=== PATIENT | female | born 1950 | race Caucasian/White ===

== ENCOUNTER → 2016-07-09 | Outpatient (CLI) | payer MEDICARE, BC | LOC: MW.CHFP 08:00 | PROVIDERS: ATTEND Student in an Organized Health Care Education/Training Program | DX: Z51.81 Encounter for therapeutic drug level monitoring (principal); Z79.01 Long term (current) use of anticoagulants; I48.91 Unspecified atrial fibrillation | CPT/HCPCS: 85610; 99211 ==

== ENCOUNTER → 2016-07-14 | Outpatient (CLI) | payer MEDICARE, BC | LOC: MW.CHORTHO 08:00 | PROVIDERS: ATTEND Physician Assistant | DX: M17.0 Bilateral primary osteoarthritis of knee (principal) | CPT/HCPCS: 20610-50; G0463; J1040; J7326 ==

== ENCOUNTER → 2016-07-20 | Outpatient (CLI) | payer MEDICARE, BC | LOC: MW.CHGS 08:00 | PROVIDERS: ATTEND Surgery | DX: C54.1 Malignant neoplasm of endometrium (principal) | CPT/HCPCS: G0463 ==

== ENCOUNTER 2016-07-28 06:38 | Day surgery (SDC) | payer MEDICARE, BC ==
--- NOTE | 2016-06-29 11:33 | PCM.PREANE ---
Preanesthetic Assessment - ANESTHESIA/TRANSFUSION/FAMILY HX Anesthesia/Transfusion History: No Prior Transfusion(s), Prior Anesthesia Family History of Anesthesia Reaction: No Other Intubation History Comment: no known problems - PHYSICAL ASSESSMENT Height: 1.65 m Weight: 94.347 kg ASA Class: 2 - ALLERGIES Allergies/Adverse Reactions: Allergies Allergy/AdvReac Type Severity Reaction Status Date / Time lorazepam [From Ativan] Allergy Hallucinati Verified 12/16/15 14:45 ons - BLOOD Blood Available: No - ANESTHESIA PLAN Preop Beta Yelena: No PreAnesthesia Questionnaire HEENT History: Reports: Impaired vision Other HEENT History: wears glasses Cardiovascular History: Reports: Afib, High cholesterol, Hypertension, Pulmonary hypertension Other Cardiovascular History: hx intermittent afib Respiratory History: Reports: None Gastrointestinal History: Reports: None Genitourinary History: Reports: None BACK WINDER History: Reports: None Musculoskeletal History: Reports: Arthritis, Gout, Other (see below) Other Musculoskeletal History: lymphedema of RLE secondary to node dissection for endometrial cancer Neurological History: Reports: None Psychiatric History: Reports: Anxiety, Depression Endocrine/Metabolic History: Reports: Diabetes, type II, Obesity/BMI 30+ Hematologic History: Reports: Anticoagulation therapy Other Hematologic History: on coumadin for afib Immunologic History: Reports: None Oncologic (Cancer) History: Reports: Uterine Dermatologic History: Reports: Psoriasis Other Dermatologic History: on face - Infectious Disease History Infectious Disease History: Reports: Chicken pox - Past Surgical History Head Surgeries/Procedures: Reports: None HEENT Surgical History: Reports: None Cardiovascular Surgical History: Reports: None Respiratory Surgical History: Reports: None GI Surgical History: Reports: Colonoscopy Female Surgical History: Reports: D&C, Hysterectomy Endocrine Surgical History: Reports: None Neurological Surgical History: Reports: Spinal fusion Musculoskeletal Surgical History: Reports: Other (see below) Other Musculoskeletal Surgeries/Procedures:: back fusion Oncologic Surgical History: Reports: Other (see below) Other Oncologic Surgeries/Procedures: hysterectomy Dermatological Surgical History: Reports: None - SUBSTANCE USE Smoking Status *Q: Former Smoker Second Hand Smoke Exposure: No Recreational Drug Use History: No - HOME MEDS Home Medications: Home Meds DULoxetine [Cymbalta] 60 mg PO DAILY 05/16/14 [History] Digoxin 125 mcg PO TUTHSA 05/16/14 [History] Digoxin 250 mcg PO SUMOWEFR 01/21/15 [History] Enalapril [Vasotec] 5 mg PO DAILY 05/16/14 [History] Metoprolol Succinate [Toprol Xl] 100 mg PO BEDTIME 05/16/14 [History] metFORMIN [Glucophage] 1,000 mg PO BIDM 05/16/14 [History] Insulin Aspart [Novolog Flexpen] 17 unit SQ ACLUNCH 09/30/15 [History] Insulin Glarg,Human.Rec.Analog [Lantus Solostar] 32 unit SUBCUT BEDTIME [History] Meloxicam 15 mg PO DAILY PRN 09/30/15 [History] traMADol [Ultram] 1 - 2 tab PO BEDTIME PRN 10/08/15 [History] traZODone HCl [Trazodone HCl] 2 tab PO BEDTIME PRN 10/08/15 [History] Insulin Aspart [Novolog Flexpen] 23 units SQ ACDINNER 12/16/15 [History] Gabapentin [Neurontin] 2 tab PO TID 06/24/16 [History] Warfarin [Coumadin] 5 mg PO ASDIRECTED 06/24/16 [History]
[~2016-07-28 06:38] MED LIST: Clindamycin Phosphate in D5W 600 MG in Premix Bag 50 BAG IV ONE
--- NOTE | 2016-07-28 07:11 | PCM.PREANE ---
Preanesthetic Assessment - Anesthesia/Transfusion/Family Hx Anesthesia History: Prior Anesthesia Without Reaction Family History of Anesthesia Reaction: No Transfusion History: No Prior Transfusion(s) - Review of Systems General: No Symptoms Pulmonary: No Symptoms Cardiovascular: No Symptoms Gastrointestinal: No symptoms Neurological: No Symptoms Other: Reports: None - Physical Assessment NPO Status Date: 07/27/16 O2 Sat by Pulse Oximetry: 96 Respiratory Rate: 16 Vital Signs: Last Vital Signs Temp 36.2 C 07/28/16 06:57 Pulse 84 07/28/16 06:57 Resp 16 07/28/16 06:57 BP 116/56 L 07/28/16 06:57 Pulse Ox 96 07/28/16 06:57 Height: 1.65 m Weight: 94.347 kg ASA Class: 3 Mental Status: Alert & Oriented x3 Airway Class: Mallampati = 2 Dentition: Reports: Normal Dentition ROM/Head Extension: Full Lungs: Clear to auscultation, Normal respiratory effort Cardiovascular: Irregular Rhythm (rate controlled afib) - Lab Values: Laboratory Last Values POC Glucose 78 mg/dL (60-110) 07/28/16 06:50 - Allergies Allergies/Adverse Reactions: Allergies Allergy/AdvReac Type Severity Reaction Status Date / Time lorazepam [From Ativan] Allergy Hallucinati Verified 12/16/15 14:45 ons - Anesthesia Plan Beta Yelena: Metoprolol Med Last Dose Date: 07/27/16 Med Last Dose Time: 20:00 - Acknowledgements Anesthesia Type Planned: MAC Pt an Appropriate Candidate for the Planned Anesthesia: Yes Alternatives and Risks of Anesthesia Discussed w Pt/Guardian: Yes Pt/Guardian Understands and Agrees with Anesthesia Plan: Yes Additional Comments: blood sugar on arrival was 78, pt reports she usually has sx of hypoglycemia with sugars of 70. 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 Musculoskeletal History: Reports: Arthritis, Gout Neurological History: Reports: None Psychiatric History: Reports: Anxiety, Depression Endocrine/Metabolic History: Reports: Diabetes, type II, Obesity/BMI 30+ Hematologic History: Reports: None Immunologic History: Reports: None Oncologic (Cancer) History: Reports: Uterine Dermatologic History: Reports: Psoriasis Other Dermatologic History: on face - Infectious Disease History Infectious Disease History: Reports: Chicken pox - Past Surgical History Head Surgeries/Procedures: Reports: None HEENT Surgical History: Reports: None Cardiovascular Surgical History: Reports: None Respiratory Surgical History: Reports: None GI Surgical History: Reports: Colonoscopy Female Surgical History: Reports: D&C, Hysterectomy Endocrine Surgical History: Reports: None Neurological Surgical History: Reports: Spinal fusion Musculoskeletal Surgical History: Reports: Other (see below) Other Musculoskeletal Surgeries/Procedures:: back fusion Oncologic Surgical History: Reports: Other (see below) Other Oncologic Surgeries/Procedures: hysterectomy Dermatological Surgical History: Reports: None - SUBSTANCE USE Smoking Status *Q: Former Smoker Second Hand Smoke Exposure: No Recreational Drug Use History: No - HOME MEDS Home Medications: Home Meds DULoxetine [Cymbalta] 60 mg PO DAILY 05/16/14 [History] Digoxin 125 mcg PO TUTHSA 05/16/14 [History] Digoxin 250 mcg PO SUMOWEFR 05/16/14 [History] Enalapril [Vasotec] 5 mg PO DAILY 05/16/14 [History] Metoprolol Succinate [Toprol Xl] 100 mg PO BEDTIME 05/16/14 [History] metFORMIN [Glucophage] 1,000 mg PO BIDM 05/16/14 [History] Insulin Aspart [Novolog Flexpen] 17 unit SQ ACLUNCH 09/30/15 [History] Insulin Glarg,Human.Rec.Analog [Lantus Solostar] 32 unit SUBCUT BEDTIME [History] Meloxicam 15 mg PO DAILY PRN 09/30/15 [History] traMADol [Ultram] 1 - 2 tab PO BEDTIME PRN 10/08/15 [History] traZODone HCl [Trazodone HCl] 2 tab PO BEDTIME PRN 10/08/15 [History] Insulin Aspart [Novolog Flexpen] 23 units SQ ACDINNER 12/16/15 [History] Gabapentin [Neurontin] 2 tab PO TID 06/24/16 [History] Warfarin [Coumadin] 5 mg PO ASDIRECTED 06/24/16 [History] - CURRENT (IN HOUSE) MEDS Current Meds: Current Medications Discontinued Medications Clindamycin Phosphate 600 mg/ (Premix) 50 mls @ 100 mls/hr IV ONETIME ONE Stop: 07/28/16 05:29 Preanesthetic Assessment - ANESTHESIA/TRANSFUSION/FAMILY HX Anesthesia/Transfusion History: No Prior Transfusion(s), Prior Anesthesia Family History of Anesthesia Reaction: No Other Intubation History Comment: no known problems - PHYSICAL ASSESSMENT O2 Sat by Pulse Oximetry: 96 RR: 16 Vital Signs: Last Vital Signs Temp 36.2 C 07/28/16 06:57 Pulse 84 07/28/16 06:57 Resp 16 07/28/16 06:57 BP 116/56 L 07/28/16 06:57 Pulse Ox 96 07/28/16 06:57 Height: 1.65 m Weight: 94.347 kg - LAB Values: Laboratory Last Values POC Glucose 78 mg/dL (60-110) 07/28/16 06:50 - ALLERGIES Allergies/Adverse Reactions: Allergies Allergy/AdvReac Type Severity Reaction Status Date / Time lorazepam [From Ativan] Allergy Hallucinati Verified 12/16/15 14:45 ons
[2016-07-28] MEDS ORDERED: Dextrose 5% in Water 1,000 ML IV SCH (07:15)
[2016-07-28] MEDS ORDERED: Bupivacaine 0.25%/EPINEPHrine 1:200,000 10 ML SDV ONE (07:21)
[2016-07-28] MEDS ORDERED: fentaNYL 100 MCG/2 ML SDV ONE (07:25)
[2016-07-28] MEDS ORDERED: Propofol 200 MG/20 ML SDV ONE (07:25)
[2016-07-28] MEDS ORDERED: Acetaminophen/oxyCODONE 325-5 MG Tab PO PRN (07:50)
--- NOTE | 2016-07-28 08:25 | PCM.OPNOTE ---
- General Post-Op/Procedure Note Date of Surgery/Procedure: 07/28/16 Operative Procedure(s): portacath removal from R Findings: cath tip is intact Pre Op Diagnosis: uterine ca Post-Op Diagnosis: same Anesthesia Technique: Moderate sedation Primary Surgeon: Jose Rodgers Complications: None Condition: Good
--- NOTE | 2016-07-28 08:37 | PCM.POSTAN ---
POST ANESTHESIA ASSESSMENT - MENTAL STATUS Mental Status: alert, oriented - RESPIRATORY Respiratory Status: respiratory rate WNL, airway patent - CARDIOVASCULAR CV Status: pulse rate WNL, blood pressure stable - GASTROINTESTINAL GI Status: no symptoms - POST OP HYDRATION Hydration Status: adequate & stable
--- NOTE | 2016-07-28 08:37 | PCM48HPAN ---
Post Anesthesia Note - EVALUATION WITHIN 48HRS OF ANESTHETIC Vital Signs in Normal Range: Yes Patient Participated in Evaluation: Yes Respiratory Function Stable: Yes Airway Patent: Yes Cardiovascular Function Stable: Yes Hydration Status Stable: Yes Pain Control Satisfactory: Yes Nausea and Vomiting Control Satisfactory: Yes Mental Status Recovered: Yes
[2016-07-28 10:37] VITALS: BP 114/54
--- NOTE | 2016-07-28 13:58 | OR ---
SURGEON: Jose Rodgers MD DATE OF PROCEDURE: 07/28/2016 PREOPERATIVE DIAGNOSIS: Uterine cancer. POSTOPERATIVE DIAGNOSIS: Uterine cancer. PROCEDURE PERFORMED: Port-A-Cath removal from the right side. COMPLICATIONS: None. FINDINGS: The Port-A-Cath was removed en bloc and the tip of the catheter is intact. DESCRIPTION OF PROCEDURE: The patient was taken to the operating room and placed in supine position. Upon induction of a mild general sedation, the patient's port site area on the right chest was prepped and draped in a sterile fashion and local anesthetic was infiltrated. From previous surgical line which is on top of the Port-A-Cath and which dissected down to expose the Port-A-Cath and anchoring stitch was cut and Port-A-Cath was then carefully removed en bloc, and pressure was applied for at least 3+ minutes. On examination of Port-A-Cath, the Port-A-Cath was intact and the tip of the catheter was intact and after 3 minutes of applying pressure the area was bone dry and copiously irrigated on irrigation and closed with 3-0 Vicryl and 4-0 Monocryl, Steri-Strip, and Tegaderm. The patient was then awakened, transferred to recovery in hemodynamically stable condition. Prior to closing, instruments, sponge counts were correct. The patient tolerated the procedure well. There were no intraoperative complications. Dr. Rodgers was present throughout the whole procedure. LM / VANESSA /[id number]
== END 2016-07-28 09:25 | disposition home or self-care (01) ==
LOC: MW.SDS 06:38
PROVIDERS: ATTEND Surgery
DX: C55 Malignant neoplasm of uterus, part unspecified (principal); F41.9 Anxiety disorder, unspecified; E11.9 Type 2 diabetes mellitus without complications; Z79.4 Long term (current) use of insulin; E78.5 Hyperlipidemia, unspecified; I10 Essential (primary) hypertension; Z79.01 Long term (current) use of anticoagulants; F32.9 Major depressive disorder, single episode, unspecified; E66.9 Obesity, unspecified; Z88.8 Allergy status to other drugs, medicaments and biological substances; Z79.899 Other long term (current) drug therapy; Z79.84 Long term (current) use of oral hypoglycemic drugs; Z98.890 Other specified postprocedural states; Z90.721 Acquired absence of ovaries, unilateral; Z87.891 Personal history of nicotine dependence
CPT/HCPCS: 36415; 36590; 82962; 85610; J3010; 00532; 88300; J2704

== ENCOUNTER → 2016-08-06 | Outpatient (CLI) | payer MEDICARE, BC | LOC: MW.CHFP 08:00 | PROVIDERS: ATTEND Student in an Organized Health Care Education/Training Program | DX: Z51.81 Encounter for therapeutic drug level monitoring (principal); Z79.01 Long term (current) use of anticoagulants; I48.91 Unspecified atrial fibrillation | CPT/HCPCS: 85610; 99211 ==

== ENCOUNTER → 2016-08-25 | Outpatient (CLI) | payer MEDICARE, BC | LOC: MW.CHOBGYN 08:00 | PROVIDERS: ATTEND Obstetrics & Gynecology | DX: C54.1 Malignant neoplasm of endometrium (principal) | CPT/HCPCS: G0463 ==

== ENCOUNTER → 2016-08-27 | Outpatient (CLI) | payer MEDICARE, BC | LOC: MW.CHFP 08:00 | PROVIDERS: ATTEND Student in an Organized Health Care Education/Training Program | DX: Z51.81 Encounter for therapeutic drug level monitoring (principal); Z79.01 Long term (current) use of anticoagulants; I48.91 Unspecified atrial fibrillation | CPT/HCPCS: 85610; 99211 ==

== ENCOUNTER → 2016-09-11 | Outpatient (CLI) | payer MEDICARE, BC ==
[2016-09-11 14:38] LABS: CHLORIDE,CL 100 mmol/L (98-110); SODIUM,NA 137 mmol/L (136-146)
== END ==
LOC: MW.CHFP 13:45
PROVIDERS: ATTEND Emergency Medicine
DX: E11.9 Type 2 diabetes mellitus without complications (principal); I10 Essential (primary) hypertension; Z79.4 Long term (current) use of insulin; G62.0 Drug-induced polyneuropathy; T45.1X5A Adverse effect of antineoplastic and immunosuppressive drugs, initial encounter; G25.81 Restless legs syndrome
CPT/HCPCS: 36415; 80048; 80061; 83036; G0463

== ENCOUNTER 2020-01-18 17:03 | Inpatient (IN) | payer MEDICARE, BC, OTHER ==
[2020-01-18] MEDS ORDERED: Albuterol/Ipratropium 3.0-0.5 MG/3 ML Neb Soln NEB PRN (17:47)
[2020-01-18] MEDS ORDERED: Heparin Sodium 5,000 Units/ML Vial SUBCUT SCH (18:00)
--- NOTE | 2020-01-18 18:26 | PCM.HP.2 ---
H&P History of Present Illness - General Date of Service: 01/18/20 Admit Problem/Dx: Admission Diagnosis/Problem Admission Diagnosis/Problem Ambulatory dysfunction - History of Present Illness Initial Comments - Free Text/Narative: Patient is a 69 y/o F with PMH of Afib, High cholesterol, Hypertension, Pulmonary hypertension, DM, OA, obesity, gout, was sent from her PCP clinic. There was a concern of her weigh gain , swollen legs with copious serous drainage,, possible volume overload and her inability to perform ADLS safely at home. Patient is being admitted for further management. Bilateral Lower Leg Pain Score (Numeric/FACES): 4 - Related Data Allergies/Adverse Reactions: Allergies Allergy/AdvReac Type Severity Reaction Status Date / Time lorazepam [From Ativan] Allergy Hallucinati Verified 12/16/15 14:45 ons Home Medications: Home Meds DULoxetine [Cymbalta] 60 mg PO DAILY 05/16/14 [History] Digoxin 125 mcg PO TUTHSA 05/16/14 [History] Digoxin 250 mcg PO SUMOWEFR 05/16/14 [History] Enalapril [Vasotec] 5 mg PO DAILY 05/16/14 [History] Metoprolol Succinate [Toprol Xl] 100 mg PO BEDTIME 05/16/14 [History] metFORMIN [Glucophage] 1,000 mg PO BIDM 05/16/14 [History] Insulin Aspart [Novolog Flexpen] 17 unit SQ ACLUNCH 09/30/15 [History] Insulin Glarg,Human.Rec.Analog [Lantus Solostar] 32 unit SUBCUT BEDTIME 09/30/15 [History] Meloxicam 15 mg PO DAILY PRN 09/30/15 [History] traMADol [Ultram] 1 - 2 tab PO BEDTIME PRN 10/08/15 [History] traZODone HCl [Trazodone HCl] 2 tab PO BEDTIME PRN 10/08/15 [History] Insulin Aspart [Novolog Flexpen] 23 units SQ ACDINNER 12/16/15 [History] Gabapentin [Neurontin] 2 tab PO TID 06/24/16 [History] Past Medical History HEENT History: Reports: Impaired Vision Other HEENT History: wearas glasses Cardiovascular History: Reports: Afib, High Cholesterol, Hypertension, Pulmonary Hypertension Other Cardiovascular History: hx intermittent afib Respiratory History: Reports: None Gastrointestinal History: Reports: None Genitourinary History: Reports: None, Other (See Below) 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 Musculoskeletal History: Reports: Arthritis, Gout Neurological History: Reports: None Psychiatric History: Reports: Anxiety, Depression, Other (See Below) Endocrine/Metabolic History: Reports: Diabetes, Type II, Obesity/BMI 30+ Hematologic History: Reports: None Immunologic History: Reports: None Oncologic (Cancer) History: Reports: Uterine Dermatologic History: Reports: Psoriasis Other Dermatologic History: on face - Infectious Disease History Infectious Disease History: Reports: Chicken Pox - Past Surgical History Neurological Surgical History: Reports: Spinal Fusion Musculoskeletal Surgical History: Reports: Other (See Below) Oncologic Surgical History: Reports: Other (See Below) H&P Review of Systems - Review of Systems: Review Of Systems: See Below General: Denies: Fever, Chills, Malaise Pulmonary: Denies: Shortness of Breath, Wheezing, Pleuritic Chest Pain Cardiovascular: Denies: Chest Pain, Palpitations Gastrointestinal: Denies: Abdominal Pain, Anorexia, Black Stool Genitourinary: Reports: Frequency. Denies: Dysuria, Burning, Pain, Incontinence Musculoskeletal: Reports: Leg Pain, Joint Pain, Muscle Stiffness. Denies: Neck Pain, Shoulder Pain Skin: Reports: Rash, Erythema. Denies: Cyanosis, Jaundice, Mottled Psychiatric: Reports: Anxiety. Denies: Confusion, Depression, Mood Lability, Suicidal Ideation, Homicidal Ideation Neurological: Denies: Confusion, Dizziness, Headache Exam - Exam Exam: See Below - Vital Signs Vital Signs: Last Vital Signs Temp Pulse Resp 22 H 01/18/20 17:55 BP 120/44 L 01/18/20 17:55 Pulse Ox 99 01/18/20 17:55 Weight: 123.332 kg - Exam Quality Assessment: Supplemental Oxygen General: Alert, Oriented Neck: Supple, Trachea Midline Lungs: Clear to Auscultation, Normal Respiratory Effort Cardiovascular: Regular Rate, Regular Rhythm GI/Abdominal Exam: Normal Bowel Sounds, Soft, Non-Tender Extremities: Pedal Edema, Leg Pain, Limited Range of Motion, Redness Skin: Warm, Moist, Rash - Patient Data Result Diagrams: 01/18/20 18:16 01/18/20 18:16 Sepsis Event Note - Focused Exam Vital Signs: Vital Signs Resp BP Pulse Ox 01/18/20 17:55 22 H 120/44 L 99 - Problem List (1) Afib SNOMED Code(s): 18382248 ICD Code: I48.91 - UNSPECIFIED ATRIAL FIBRILLATION Status: Acute Current Visit: Yes (2) Diabetes SNOMED Code(s): 54143070 ICD Code: E11.9 - TYPE 2 DIABETES MELLITUS WITHOUT COMPLICATIONS Status: Acute Current Visit: Yes (3) Osteoarthritis SNOMED Code(s): 468418129 ICD Code: M19.90 - UNSPECIFIED OSTEOARTHRITIS, UNSPECIFIED SITE Status: Acute Current Visit: Yes (4) HTN (hypertension) SNOMED Code(s): 08846454 ICD Code: I10 - ESSENTIAL (PRIMARY) HYPERTENSION Status: Acute Current Visit: Yes (5) Ambulatory dysfunction SNOMED Code(s): 747113578 ICD Code: R26.2 - DIFFICULTY IN WALKING, NOT ELSEWHERE CLASSIFIED Status: Acute Current Visit: Yes Problem List Initiated/Reviewed/Updated: Yes Orders Last 24hrs: Active Orders 24 hr Category Date Time Status Patient Status [ADT] Routine ADT 01/18/20 17:47 Active Ambulate [RC] ASDIRECTED Care 01/18/20 17:47 Active Insert [place] Catheter [Insert Urinary Catheter] [OM.PC] Care 01/18/20 18:00 Ordered Q24H Oxygen Therapy [RC] PRN Care 01/18/20 17:47 Active Pulse Oximetry [RC] PRN Care 01/18/20 17:50 Active RT Aerosol Therapy [RC] ASDIRECTED Care 01/18/20 17:51 Active Urinary Catheter Assessment [RC] ASDIRECTED Care 01/18/20 17:54 Active VTE/DVT Education [RC] PER UNIT ROUTINE Care 01/18/20 17:47 Active Vital Signs [RC] Q4H Care 01/18/20 17:47 Active Consult to Physical Therapy [PT Evaluation and Cons 01/18/20 17:54 Active Treatment] [CONS] Routine Consult to Wound Care Services [CONS] Routine Cons 01/18/20 17:52 Active CBC WITH AUTO DIFF [HEME] Stat Lab 01/18/20 18:16 Received COMPREHENSIVE METABOLIC PN,CMP [CHEM] Stat Lab 01/18/20 18:16 Received MAGNESIUM [CHEM] Stat Lab 01/18/20 18:16 Received PHOSPHORUS [CHEM] Stat Lab 01/18/20 18:16 Received UA W/ALEJANDRA RFLX IF INDICATED [URIN] Routine Lab 01/18/20 17:51 Ordered Acetaminophen [TylenoL] Med 01/18/20 17:47 Active 650 mg PO Q4H PRN Albuterol/Ipratropium [DuoNeb 3.0-0.5 MG/3 ML] Med 01/18/20 17:47 Active 3 ml NEB Q4HRRT PRN Heparin Sodium Med 01/18/20 18:15 Pending 5,000 units SUBCUT Q8H Medication Orders Acetaminophen (Tylenol) 650 mg PO Q4H PRN PRN Reason: Pain (Mild 1-3)/fever Albuterol/Ipratropium (Duoneb 3.0-0.5 Mg/3 Ml) 3 ml NEB Q4HRRT PRN PRN Reason: Shortness Of Breath/wheezing Heparin Sodium (Porcine) (Heparin Sodium) 5,000 units SUBCUT Q8H FORREST Assessment/Plan Comment:: 69 y/o F admitted for b/l leg swelling, ambulatory dysfunction, start IV lasix 40 mh BID inset Peraza for now for close monitoring of ins and outs 2D echo resume bedtime Levemir SSI per protocol Accu checks Wound care PT eval Monitor and replete electrolytes check UA Resume home meds
[2020-01-18 18:48] LABS: BLOOD UREA NITROGEN,BUN 13 mg/dL (7.0-18.0); CARBON DIOXIDE,CO2 29.2 mmol/L (21.0-32.0); CHLORIDE,CL 103 mmol/L (98-107); GLUCOSE RANDOM 136 mg/dL (74-106); POTASSIUM,K 5.7 mmol/L (3.5-5.1); SODIUM,NA 138 mmol/L (136-145)
[2020-01-18] MEDS ORDERED: Magnesium Sulfate/Water 2 GM/50 ML BAG IV ONE (19:30)
[2020-01-18] MEDS ORDERED: Magnesium Sulfate/Water 2 GM/50 ML Premix Bag IV ONE (19:30)
[2020-01-18] MEDS ORDERED: Morphine 2 MG/ML SYRINGE IVPUSH PRN (19:53)
[2020-01-18] MEDS: Heparin Sodium 5,000 Units/ML Vial SUBCUT SCH (20:47)
[2020-01-18] MEDS: Furosemide 40 MG/4 ML VIAL IVPUSH SCH (21:36)
[2020-01-18] MEDS: Metoprolol Succinate 100 MG Tab.ER PO SCH (21:36)
[2020-01-18] MEDS: Insulin Glargine,Human Rec. Analog 100 Units/ML 3 ML Pen SUBCUT SCH (21:37)
[2020-01-18] MEDS ORDERED: cefTRIAXone 1 GM in Sodium Chloride 0.9% 50 ML IV ONE (23:00)
[2020-01-19] MEDS: Heparin Sodium 5,000 Units/ML Vial SUBCUT SCH ×2 (04:55→19:06)
[2020-01-19 05:58] LABS: BLOOD UREA NITROGEN,BUN 13 mg/dL (7.0-18.0); CARBON DIOXIDE,CO2 33.3 mmol/L (21.0-32.0); CHLORIDE,CL 104 mmol/L (98-107); GLUCOSE RANDOM 53 mg/dL (74-106); POTASSIUM,K 4.9 mmol/L (3.5-5.1); SODIUM,NA 141 mmol/L (136-145)
[2020-01-19] MEDS ORDERED: Gabapentin 100 MG Cap PO SCH (06:00)
[2020-01-19] MEDS ORDERED: Meloxicam 7.5 MG Tab PO PRN (08:18)
[2020-01-19] MEDS: Insulin Aspart 100 Units/ML 3 ML Pen SUBCUT SCH ×3 (08:37→17:59)
[2020-01-19] MEDS: Furosemide 40 MG/4 ML VIAL IVPUSH SCH ×2 (08:39→21:45)
[2020-01-19] MEDS: Digoxin 250 MCG Tab PO SCH ×2 (08:46→08:54)
[2020-01-19] MEDS: DULoxetine 30 MG Cap PO SCH (08:46)
[2020-01-19] MEDS: Enalapril 5 MG Tab PO SCH (08:55)
[2020-01-19] MEDS ORDERED: Magnesium Sulfate/Water 2 GM/50 ML BAG IV ONE (09:22)
--- NOTE | 2020-01-19 09:26 | PCM.PN ---
- General Info Date of Service: 01/19/20 - Review of Systems Systems Review Comment:: leg edema improving - Patient Data Vitals - Most Recent: Last Vital Signs Temp 36.5 C 01/19/20 08:00 Pulse 89 01/19/20 08:46 Resp 16 01/19/20 08:00 BP 129/56 L 01/19/20 08:55 Pulse Ox 93 L 01/19/20 08:00 Weight - Most Recent: 123.332 kg I&O - Last 24 Hours: Intake & Output 01/18/20 01/19/20 01/19/20 22:59 06:59 14:59 Intake Total 90 Output Total 880 2610 Balance -880 -2520 Lab Results Last 24 Hours: Laboratory Results - last 24 hr 01/18/20 01/18/20 01/18/20 Range/Units 18:16 18:16 19:51 WBC 8.74 (4.0-11.0) K/uL RBC 4.12 L (4.30-5.90) M/uL Hgb 14.6 (12.0-16.0) g/dL Hct 45.9 (36.0-46.0) % MCV 111.4 H (80.0-98.0) fL MCH 35.4 H (27.0-32.0) pg MCHC 31.8 (31.0-37.0) g/dL RDW Std Deviation 67.0 H (28.0-62.0) fl RDW Coeff of Zaida 16 H (11.0-15.0) % Plt Count 192 (150-400) K/uL MPV 10.10 (7.40-12.00) fL Neut % (Auto) 77.5 (48.0-80.0) % Lymph % (Auto) 10.9 L (16.0-40.0) % Cotton % (Auto) 11.1 (0.0-15.0) % Eos % (Auto) 0.3 (0.0-7.0) % Baso % (Auto) 0.2 (0.0-1.5) % Neut # (Auto) 6.8 H (1.4-5.7) K/uL Lymph # (Auto) 1.0 (0.6-2.4) K/uL Cotton # (Auto) 1.0 H (0.0-0.8) K/uL Eos # (Auto) 0.0 (0.0-0.7) K/uL Baso # (Auto) 0.0 (0.0-0.1) K/uL Nucleated RBC % 0.0 /100WBC Nucleated RBCs # 0 K/uL Sodium 138 (136-145) mmol/L Potassium 5.7 H (3.5-5.1) mmol/L Chloride 103 (98-107) mmol/L Carbon Dioxide 29.2 (21.0-32.0) mmol/L BUN 13 (7.0-18.0) mg/dL Creatinine 0.9 (0.6-1.0) mg/dL Est Cr Clr Drug Dosing TNP Estimated GFR (MDRD) > 60.0 ml/min Glucose 136 H (74-106) mg/dL POC Glucose (60-110) mg/dL Calcium 8.3 L (8.5-10.1) mg/dL Phosphorus 3.9 (2.6-4.7) mg/dL Magnesium 1.4 L (1.8-2.4) mg/dL Total Bilirubin 0.7 (0.2-1.0) mg/dL AST 19 (15-37) IU/L ALT 12 L (14-63) IU/L Alkaline Phosphatase 100 (46-116) U/L Total Protein 6.6 (6.4-8.2) g/dL Albumin 3.1 L (3.4-5.0) g/dL Globulin 3.5 (2.6-4.0) g/dL Albumin/Globulin Ratio 0.9 (0.9-1.6) Urine Color Urine Appearance Urine pH (5.0-8.0) Ur Specific [place] (1.001-1.035) Urine Protein (NEGATIVE) mg/dL Urine Glucose (UA) (NEGATIVE) mg/dL Urine Ketones (NEGATIVE) mg/dL Urine Occult Blood (NEGATIVE) Urine Nitrite (NEGATIVE) Urine Bilirubin (NEGATIVE) Urine Urobilinogen (<2.0) EU/dL Ur Leukocyte Esterase (NEGATIVE) Urine RBC (0-2/HPF) Urine WBC (0-5/HPF) Ur Epithelial Cells (NONE-FEW) Amorphous Sediment (NEGATIVE) Urine Bacteria (NEGATIVE) Urine Mucus (NONE-MOD) SARS-CoV-2 RNA (FELIPE) NEGATIVE (NEGATIVE) 01/18/20 01/18/20 01/19/20 Range/Units 21:30 21:40 05:26 WBC 8.88 (4.0-11.0) K/uL RBC 4.02 L (4.30-5.90) M/uL Hgb 14.1 (12.0-16.0) g/dL Hct 45.1 (36.0-46.0) % MCV 112.2 H (80.0-98.0) fL MCH 35.1 H (27.0-32.0) pg MCHC 31.3 (31.0-37.0) g/dL RDW Std Deviation 67.6 H (28.0-62.0) fl RDW Coeff of Zaida 16 H (11.0-15.0) % Plt Count 196 (150-400) K/uL MPV 10.20 (7.40-12.00) fL Neut % (Auto) 76.9 (48.0-80.0) % Lymph % (Auto) 8.3 L (16.0-40.0) % Cotton % (Auto) 14.0 (0.0-15.0) % Eos % (Auto) 0.6 (0.0-7.0) % Baso % (Auto) 0.2 (0.0-1.5) % Neut # (Auto) 6.8 H (1.4-5.7) K/uL Lymph # (Auto) 0.7 (0.6-2.4) K/uL Cotton # (Auto) 1.2 H (0.0-0.8) K/uL Eos # (Auto) 0.1 (0.0-0.7) K/uL Baso # (Auto) 0.0 (0.0-0.1) K/uL Nucleated RBC % 0.0 /100WBC Nucleated RBCs # 0 K/uL Sodium (136-145) mmol/L Potassium (3.5-5.1) mmol/L Chloride (98-107) mmol/L Carbon Dioxide (21.0-32.0) mmol/L BUN (7.0-18.0) mg/dL Creatinine (0.6-1.0) mg/dL Est Cr Clr Drug Dosing Estimated GFR (MDRD) ml/min Glucose (74-106) mg/dL POC Glucose 97 (60-110) mg/dL Calcium (8.5-10.1) mg/dL Phosphorus (2.6-4.7) mg/dL Magnesium (1.8-2.4) mg/dL Total Bilirubin (0.2-1.0) mg/dL AST (15-37) IU/L ALT (14-63) IU/L Alkaline Phosphatase (46-116) U/L Total Protein (6.4-8.2) g/dL Albumin (3.4-5.0) g/dL Globulin (2.6-4.0) g/dL Albumin/Globulin Ratio (0.9-1.6) Urine Color YELLOW Urine Appearance CLOUDY Urine pH 5.5 (5.0-8.0) Ur Specific [place] 1.015 (1.001-1.035) Urine Protein NEGATIVE (NEGATIVE) mg/dL Urine Glucose (UA) NEGATIVE (NEGATIVE) mg/dL Urine Ketones NEGATIVE (NEGATIVE) mg/dL Urine Occult Blood LARGE H (NEGATIVE) Urine Nitrite NEGATIVE (NEGATIVE) Urine Bilirubin NEGATIVE (NEGATIVE) Urine Urobilinogen 0.2 (<2.0) EU/dL Ur Leukocyte Esterase MODERATE H (NEGATIVE) Urine RBC NONE SEEN (0-2/HPF) Urine WBC 15-18 (0-5/HPF) Ur Epithelial Cells MODERATE (NONE-FEW) Amorphous Sediment LIGHT (NEGATIVE) Urine Bacteria 2+ H (NEGATIVE) Urine Mucus MODERATE (NONE-MOD) SARS-CoV-2 RNA (FELIPE) (NEGATIVE) 01/19/20 01/19/20 01/19/20 Range/Units 05:26 06:47 07:40 WBC (4.0-11.0) K/uL RBC (4.30-5.90) M/uL Hgb (12.0-16.0) g/dL Hct (36.0-46.0) % MCV (80.0-98.0) fL MCH (27.0-32.0) pg MCHC (31.0-37.0) g/dL RDW Std Deviation (28.0-62.0) fl RDW Coeff of Zaida (11.0-15.0) % Plt Count (150-400) K/uL MPV (7.40-12.00) fL Neut % (Auto) (48.0-80.0) % Lymph % (Auto) (16.0-40.0) % Cotton % (Auto) (0.0-15.0) % Eos % (Auto) (0.0-7.0) % Baso % (Auto) (0.0-1.5) % Neut # (Auto) (1.4-5.7) K/uL Lymph # (Auto) (0.6-2.4) K/uL Cotton # (Auto) (0.0-0.8) K/uL Eos # (Auto) (0.0-0.7) K/uL Baso # (Auto) (0.0-0.1) K/uL Nucleated RBC % /100WBC Nucleated RBCs # K/uL Sodium 141 (136-145) mmol/L Potassium 4.9 (3.5-5.1) mmol/L Chloride 104 (98-107) mmol/L Carbon Dioxide 33.3 H (21.0-32.0) mmol/L BUN 13 (7.0-18.0) mg/dL Creatinine 0.9 (0.6-1.0) mg/dL Est Cr Clr Drug Dosing TNP Estimated GFR (MDRD) > 60.0 ml/min Glucose 53 L (74-106) mg/dL POC Glucose 54 L 104 (60-110) mg/dL Calcium 8.3 L (8.5-10.1) mg/dL Phosphorus 4.3 (2.6-4.7) mg/dL Magnesium 1.6 L (1.8-2.4) mg/dL Total Bilirubin (0.2-1.0) mg/dL AST (15-37) IU/L ALT (14-63) IU/L Alkaline Phosphatase (46-116) U/L Total Protein (6.4-8.2) g/dL Albumin (3.4-5.0) g/dL Globulin (2.6-4.0) g/dL Albumin/Globulin Ratio (0.9-1.6) Urine Color Urine Appearance Urine pH (5.0-8.0) Ur Specific [place] (1.001-1.035) Urine Protein (NEGATIVE) mg/dL Urine Glucose (UA) (NEGATIVE) mg/dL Urine Ketones (NEGATIVE) mg/dL Urine Occult Blood (NEGATIVE) Urine Nitrite (NEGATIVE) Urine Bilirubin (NEGATIVE) Urine Urobilinogen (<2.0) EU/dL Ur Leukocyte Esterase (NEGATIVE) Urine RBC (0-2/HPF) Urine WBC (0-5/HPF) Ur Epithelial Cells (NONE-FEW) Amorphous Sediment (NEGATIVE) Urine Bacteria (NEGATIVE) Urine Mucus (NONE-MOD) SARS-CoV-2 RNA (FELIPE) (NEGATIVE) Med Orders - Current: Current Medications Acetaminophen (Tylenol) 650 mg PO Q4H PRN PRN Reason: Pain (Mild 1-3)/fever Albuterol/Ipratropium (Duoneb 3.0-0.5 Mg/3 Ml) 3 ml NEB Q4HRRT PRN PRN Reason: Shortness Of Breath/wheezing Digoxin (Lanoxin) 125 mcg PO TuThSa@0900 [facility] Digoxin (Lanoxin) 250 mcg PO SuMoWeFr@0900 [facility] Last Admin: 01/19/20 08:54 Dose: Not Given Documented by: Duloxetine HCl (Cymbalta) 60 mg PO DAILY [facility] Last Admin: 01/19/20 08:46 Dose: 60 mg Documented by: Enalapril Maleate (Vasotec) 5 mg PO DAILY [facility] Last Admin: 01/19/20 08:55 Dose: 5 mg Documented by: Furosemide (Lasix) 40 mg IVPUSH BID [facility] Last Admin: 01/19/20 08:39 Dose: 40 mg Documented by: Gabapentin (Neurontin) 200 mg PO TID [facility] Last Admin: 01/19/20 05:09 Dose: 200 mg Documented by: Heparin Sodium (Porcine) (Heparin Sodium) 5,000 units SUBCUT Q8H [facility] Last Admin: 01/19/20 04:55 Dose: 5,000 units Documented by: Ceftriaxone Sodium/Dextrose 1 (gm/ Premix) 50 mls @ 100 mls/hr IV Q24H [facility] Magnesium Sulfate (Magnesium Sulfate In Water Premix) 2 gm in 50 mls @ 50 mls/hr IV ONETIME ONE Stop: 01/19/20 10:21 Influenza Virus Vaccine (Fluzone High-Dose Quad ) 240 mcg IM .ONCE ONE Stop: 01/19/20 10:01 Insulin Aspart (Novolog) 0 unit SUBCUT TIDAC [facility]; Protocol Last Admin: 01/19/20 08:37 Dose: Not Given Documented by: Insulin Glargine (Lantus Solostar) 32 units SUBCUT BEDTIME [facility] Last Admin: 01/18/20 21:37 Dose: 32 unit Documented by: Meloxicam (Mobic) 15 mg PO DAILY PRN PRN Reason: Pain Metoprolol Succinate (Toprol Xl) 100 mg PO BEDTIME [facility] Last Admin: 01/18/20 21:36 Dose: 100 mg Documented by: Morphine Sulfate (Morphine) 1 mg IVPUSH Q4H PRN PRN Reason: Pain Discontinued Medications Heparin Sodium (Porcine) (Heparin Sodium) 5,000 units SUBCUT Q8H [facility] Last Admin: 01/18/20 21:53 Dose: Not Given Documented by: Magnesium Sulfate (Magnesium Sulfate In Water Premix) 2 gm in 50 mls @ 50 mls/hr IV ONETIME ONE Stop: 01/18/20 20:29 Last Admin: 01/18/20 20:45 Dose: 50 mls/hr Documented by: Ceftriaxone Sodium 1 gm/ (Sodium Chloride) 50 mls @ 100 mls/hr IV Q24H [facility] Ceftriaxone Sodium 1 gm/ (Sodium Chloride) 50 mls @ 100 mls/hr IV ONETIME ONE Stop: 01/18/20 23:29 Last Admin: 01/18/20 23:13 Dose: 100 mls/hr Documented by: Ceftriaxone Sodium/Dextrose (Rocephin In Dextrose,Iso-Osm 1 Gm/50 Ml) Confirm Administered Dose 50 mls @ as directed .ROUTE .STK-MED ONE Stop: 01/18/20 22:50 Last Admin: 01/18/20 23:08 Dose: Not Given Documented by: Magnesium Sulfate (Magnesium Sulfate In Water Premix) 2 gm IV ONETIME ONE Stop: 01/18/20 19:31 - Exam General: Alert, Oriented Neck: Supple Lungs: Clear to Auscultation, Normal Respiratory Effort Cardiovascular: Regular Rate, Regular Rhythm Extremities: Non-Tender, Pedal Edema (2-3 mm edema of legs bilaterally, no weeping ) Neurological: No New Focal Deficit Sepsis Event Note - Evaluation Sepsis Screening Result: No Definite Risk - Focused Exam Vital Signs: Vital Signs Temp Pulse Pulse Resp BP BP Pulse Ox 01/19/20 08:55 129/56 L 01/19/20 08:46 89 01/19/20 08:00 36.5 C 87 16 114/57 L 93 L 01/19/20 05:00 36.5 C 89 15 122/60 96 01/19/20 00:00 36.8 C 85 18 113/59 L 98 01/18/20 21:36 96 119/71 - Problem List Review Problem List Initiated/Reviewed/Updated: Yes - My Orders Last 24 Hours: My Active Orders 01/19/20 08:18 Meloxicam [Mobic] 15 mg PO DAILY PRN 01/19/20 08:30 Digoxin [Lanoxin] 250 mcg PO SuMoWeFr@89901/19/20 09:00 DULoxetine [Cymbalta] 60 mg PO DAILY Enalapril [Vasotec] 5 mg PO DAILY 01/19/20 09:22 Magnesium Sulfate 2 GM in Water @ 50 MLS/HR(50ml) Magnesium Sulfate/Water [Magnesium Sulfate in Water Premix] 2 gm in 50 ml IV ONETIME 01/20/20 05:11 BASIC METABOLIC PANEL,BMP [CHEM] AM CBC WITH AUTO DIFF [HEME] AM MAGNESIUM [CHEM] AM 01/20/20 08:18 Digoxin [Lanoxin] 125 mcg PO TuThSa@899 - Plan Plan:: 69 yo female admitted for ambulatory dysfunction with lower leg edema. We will continue diuresis with lasix BID. Echocardiogram ordred. DM: continue ssi with bedtime levemir UTI: on rocephin, cultures pending Discharge, likely home tomorrow.
[2020-01-19] MEDS ORDERED: FLU Vacc QV2020-21(65YR UP)/PF 240 MCG/0.7 ML Syringe IM ONE (10:00)
[2020-01-19] MEDS ORDERED: Insulin Aspart 100 Units/ML 3 ML Pen SUBCUT SCH ×2 (11:30→17:00)
[2020-01-19] MEDS ORDERED: Non-Formulary Medication 1 Each (Warfarin 3 MG) PO SCH (14:00)
[2020-01-19] MEDS: Gabapentin 300 MG Cap PO SCH ×2 (17:36→21:42)
[2020-01-19] MEDS: Acetaminophen 325 MG Tab PO PRN (17:46)
[2020-01-19] MEDS ORDERED: cefTRIAXone 1 GM in Sodium Chloride 0.9% 50 ML IV SCH (21:00)
[2020-01-19] MEDS: Nystatin Topical Powder 15 GM Bottle TOP SCH ×3 (21:14→21:16)
[2020-01-19] MEDS: Insulin Glargine,Human Rec. Analog 100 Units/ML 3 ML Pen SUBCUT SCH (21:16)
[2020-01-19] MEDS: traZODone 50 MG Tab PO PRN (21:42)
[2020-01-19] MEDS: Metoprolol Succinate 100 MG Tab.ER PO SCH (21:52)
[2020-01-19] MEDS: cefTRIAXone 1 GM in Premix Bag 1 BAG IV SCH (21:54)
[2020-01-20] MEDS: cefTRIAXone 1 GM in Premix Bag 1 BAG IV SCH ×2 (01:06→23:48)
[2020-01-20] MEDS: Gabapentin 300 MG Cap PO SCH ×3 (05:37→21:53)
[2020-01-20] MEDS: Nystatin Topical Powder 15 GM Bottle TOP SCH ×3 (05:38→22:00)
[2020-01-20 07:02] LABS: BLOOD UREA NITROGEN,BUN 14 mg/dL (7.0-18.0); CARBON DIOXIDE,CO2 35.3 mmol/L (21.0-32.0); CHLORIDE,CL 99 mmol/L (98-107); GLUCOSE RANDOM 161 mg/dL (74-106); POTASSIUM,K 4.6 mmol/L (3.5-5.1); SODIUM,NA 140 mmol/L (136-145)
[2020-01-20] MEDS: Furosemide 40 MG/4 ML VIAL IVPUSH SCH ×2 (08:29→21:52)
[2020-01-20] MEDS: DULoxetine 30 MG Cap PO SCH (08:33)
[2020-01-20] MEDS: Digoxin 250 MCG Tab PO SCH ×2 (08:34→10:09)
[2020-01-20] MEDS: Insulin Aspart 100 Units/ML 3 ML Pen SUBCUT SCH ×3 (08:36→17:41)
[2020-01-20] MEDS ORDERED: Magnesium Sulfate/Water 2 GM/50 ML Premix Bag IV ONE (11:39)
--- NOTE | 2020-01-20 11:43 | PCM.PN ---
- General Info Date of Service: 01/20/20 - Review of Systems Systems Review Comment:: patient feeling better, leg edema has improved, does not feel ready for discharge today. - Patient Data Vitals - Most Recent: Last Vital Signs Temp 36.2 C 01/20/20 04:00 Pulse 94 01/20/20 08:34 Resp 18 01/20/20 08:10 BP 108/57 L 01/20/20 08:10 Pulse Ox 94 L 01/20/20 08:10 Weight - Most Recent: 114.844 kg I&O - Last 24 Hours: Intake & Output 01/19/20 01/20/20 01/20/20 22:59 06:59 14:59 Intake Total 900 600 Output Total 3800 3300 Balance -2900 -2700 Lab Results Last 24 Hours: Laboratory Results - last 24 hr 01/19/20 01/19/20 01/19/20 Range/Units 12:29 17:57 21:59 WBC (4.0-11.0) K/uL RBC (4.30-5.90) M/uL Hgb (12.0-16.0) g/dL Hct (36.0-46.0) % MCV (80.0-98.0) fL MCH (27.0-32.0) pg MCHC (31.0-37.0) g/dL RDW Std Deviation (28.0-62.0) fl RDW Coeff of Zaida (11.0-15.0) % Plt Count (150-400) K/uL MPV (7.40-12.00) fL Neut % (Auto) (48.0-80.0) % Lymph % (Auto) (16.0-40.0) % [place] % (Auto) (0.0-15.0) % Eos % (Auto) (0.0-7.0) % Baso % (Auto) (0.0-1.5) % Neut # (Auto) (1.4-5.7) K/uL Lymph # (Auto) (0.6-2.4) K/uL [place] # (Auto) (0.0-0.8) K/uL Eos # (Auto) (0.0-0.7) K/uL Baso # (Auto) (0.0-0.1) K/uL Nucleated RBC % /100WBC Nucleated RBCs # K/uL INR Sodium (136-145) mmol/L Potassium (3.5-5.1) mmol/L Chloride (98-107) mmol/L Carbon Dioxide (21.0-32.0) mmol/L BUN (7.0-18.0) mg/dL Creatinine (0.6-1.0) mg/dL Est Cr Clr Drug Dosing Estimated GFR (MDRD) ml/min Glucose (74-106) mg/dL POC Glucose 113 H 188 H 227 H (60-110) mg/dL Calcium (8.5-10.1) mg/dL Magnesium (1.8-2.4) mg/dL 01/20/20 01/20/20 01/20/20 Range/Units 05:35 05:55 05:55 WBC 7.87 (4.0-11.0) K/uL RBC 4.06 L (4.30-5.90) M/uL Hgb 14.2 (12.0-16.0) g/dL Hct 45.3 (36.0-46.0) % MCV 111.6 H (80.0-98.0) fL MCH 35.0 H (27.0-32.0) pg MCHC 31.3 (31.0-37.0) g/dL RDW Std Deviation 67.3 H (28.0-62.0) fl RDW Coeff of Zaida 16 H (11.0-15.0) % Plt Count 169 (150-400) K/uL MPV 10.30 (7.40-12.00) fL Neut % (Auto) 72.3 (48.0-80.0) % Lymph % (Auto) 12.3 L (16.0-40.0) % [place] % (Auto) 14.2 (0.0-15.0) % Eos % (Auto) 0.9 (0.0-7.0) % Baso % (Auto) 0.3 (0.0-1.5) % Neut # (Auto) 5.7 (1.4-5.7) K/uL Lymph # (Auto) 1.0 (0.6-2.4) K/uL [place] # (Auto) 1.1 H (0.0-0.8) K/uL Eos # (Auto) 0.1 (0.0-0.7) K/uL Baso # (Auto) 0.0 (0.0-0.1) K/uL Nucleated RBC % 0.0 /100WBC Nucleated RBCs # 0 K/uL INR Sodium 140 (136-145) mmol/L Potassium 4.6 (3.5-5.1) mmol/L Chloride 99 (98-107) mmol/L Carbon Dioxide 35.3 H (21.0-32.0) mmol/L BUN 14 (7.0-18.0) mg/dL Creatinine 0.9 (0.6-1.0) mg/dL Est Cr Clr Drug Dosing TNP Estimated GFR (MDRD) > 60.0 ml/min Glucose 161 H (74-106) mg/dL POC Glucose 164 H (60-110) mg/dL Calcium 8.6 (8.5-10.1) mg/dL Magnesium 1.4 L (1.8-2.4) mg/dL 01/20/20 Range/Units 05:55 WBC (4.0-11.0) K/uL RBC (4.30-5.90) M/uL Hgb (12.0-16.0) g/dL Hct (36.0-46.0) % MCV (80.0-98.0) fL MCH (27.0-32.0) pg MCHC (31.0-37.0) g/dL RDW Std Deviation (28.0-62.0) fl RDW Coeff of Zaida (11.0-15.0) % Plt Count (150-400) K/uL MPV (7.40-12.00) fL Neut % (Auto) (48.0-80.0) % Lymph % (Auto) (16.0-40.0) % [place] % (Auto) (0.0-15.0) % Eos % (Auto) (0.0-7.0) % Baso % (Auto) (0.0-1.5) % Neut # (Auto) (1.4-5.7) K/uL Lymph # (Auto) (0.6-2.4) K/uL [place] # (Auto) (0.0-0.8) K/uL Eos # (Auto) (0.0-0.7) K/uL Baso # (Auto) (0.0-0.1) K/uL Nucleated RBC % /100WBC Nucleated RBCs # K/uL INR 2.16 Sodium (136-145) mmol/L Potassium (3.5-5.1) mmol/L Chloride (98-107) mmol/L Carbon Dioxide (21.0-32.0) mmol/L BUN (7.0-18.0) mg/dL Creatinine (0.6-1.0) mg/dL Est Cr Clr Drug Dosing Estimated GFR (MDRD) ml/min Glucose (74-106) mg/dL POC Glucose (60-110) mg/dL Calcium (8.5-10.1) mg/dL Magnesium (1.8-2.4) mg/dL Med Orders - Current: Current Medications Acetaminophen (Tylenol) 650 mg PO Q4H PRN PRN Reason: Pain (Mild 1-3)/fever Last Admin: 01/19/20 17:46 Dose: 650 mg Documented by: Albuterol/Ipratropium (Duoneb 3.0-0.5 Mg/3 Ml) 3 ml NEB Q4HRRT PRN PRN Reason: Shortness Of Breath/wheezing Digoxin (Lanoxin) 125 mcg PO TuThSa@0900 [facility] Last Admin: 01/20/20 10:09 Dose: Not Given Documented by: Digoxin (Lanoxin) 250 mcg PO SuMoWeFr@0900 [facility] Last Admin: 01/19/20 08:54 Dose: Not Given Documented by: Duloxetine HCl (Cymbalta) 60 mg PO DAILY [facility] Last Admin: 01/20/20 08:33 Dose: 60 mg Documented by: Enalapril Maleate (Vasotec) 5 mg PO DAILY [facility] Last Admin: 01/19/20 08:55 Dose: 5 mg Documented by: Furosemide (Lasix) 40 mg IVPUSH BID [facility] Last Admin: 01/20/20 08:29 Dose: 40 mg Documented by: Gabapentin (Neurontin) 600 mg PO TID [facility] Last Admin: 01/20/20 05:37 Dose: 600 mg Documented by: Ceftriaxone Sodium/Dextrose 1 (gm/ Premix) 50 mls @ 100 mls/hr IV Q24H [facility] Last Admin: 01/20/20 01:06 Dose: Not Given Documented by: Insulin Aspart (Novolog) 0 unit SUBCUT TIDAC [facility]; Protocol Last Admin: 01/20/20 08:36 Dose: 2 units Documented by: Insulin Glargine (Lantus Solostar) 32 units SUBCUT BEDTIME [facility] Last Admin: 01/19/20 21:16 Dose: 32 unit Documented by: Magnesium Sulfate (Magnesium Sulfate In Water Premix) 2 gm IV ONETIME ONE Stop: 01/20/20 11:40 Metoprolol Succinate (Toprol Xl) 100 mg PO BEDTIME [facility] Last Admin: 01/19/20 21:52 Dose: 100 mg Documented by: Morphine Sulfate (Morphine) 1 mg IVPUSH Q4H PRN PRN Reason: Pain Last Admin: 01/20/20 01:07 Dose: 1 mg Documented by: Nystatin (Nystop) 1 gm TOP TID [facility] Last Admin: 01/20/20 05:38 Dose: 1 each Documented by: Trazodone HCl (Trazodone) 50 mg PO BEDTIME PRN PRN Reason: Insomnia Last Admin: 01/19/20 21:42 Dose: 50 mg Documented by: Warfarin Sodium (Coumadin Ask) 1 each PO DAILY@1400 [facility] Last Admin: 01/19/20 16:53 Dose: Not Given Documented by: Warfarin Sodium (Coumadin) 1.5 mg PO DAILY@1400 [facility] Stop: 01/20/20 14:30 Discontinued Medications Gabapentin (Neurontin) 200 mg PO TID [facility] Last Admin: 01/19/20 05:09 Dose: 200 mg Documented by: Heparin Sodium (Porcine) (Heparin Sodium) 5,000 units SUBCUT Q8H [facility] Last Admin: 01/18/20 21:53 Dose: Not Given Documented by: Heparin Sodium (Porcine) (Heparin Sodium) 5,000 units SUBCUT Q8H [facility] Last Admin: 01/19/20 19:06 Dose: Not Given Documented by: Magnesium Sulfate (Magnesium Sulfate In Water Premix) 2 gm in 50 mls @ 50 mls/hr IV ONETIME ONE Stop: 01/18/20 20:29 Last Admin: 01/18/20 20:45 Dose: 50 mls/hr Documented by: Ceftriaxone Sodium 1 gm/ (Sodium Chloride) 50 mls @ 100 mls/hr IV Q24H [facility] Ceftriaxone Sodium 1 gm/ (Sodium Chloride) 50 mls @ 100 mls/hr IV ONETIME ONE Stop: 01/18/20 23:29 Last Admin: 01/18/20 23:13 Dose: 100 mls/hr Documented by: Ceftriaxone Sodium/Dextrose (Rocephin In Dextrose,Iso-Osm 1 Gm/50 Ml) Confirm Administered Dose 50 mls @ as directed .ROUTE .STK-MED ONE Stop: 01/18/20 22:50 Last Admin: 01/18/20 23:08 Dose: Not Given Documented by: Magnesium Sulfate (Magnesium Sulfate In Water Premix) 2 gm in 50 mls @ 50 mls/hr IV ONETIME ONE Stop: 01/19/20 10:21 Last Admin: 01/19/20 10:36 Dose: 50 mls/hr Documented by: Magnesium Sulfate (Magnesium Sulfate In Water Premix) 2 gm IV ONETIME ONE Stop: 01/18/20 19:31 Meloxicam (Mobic) 15 mg PO DAILY PRN PRN Reason: Pain - Exam General: Alert, Oriented Neck: Supple Lungs: Clear to Auscultation, Normal Respiratory Effort Cardiovascular: Regular Rate, Regular Rhythm GI/Abdominal Exam: Soft, Non-Tender, No Distention Extremities: Pedal Edema (+1) Skin: Warm, Dry, Intact Neurological: No New Focal Deficit Sepsis Event Note - Evaluation Sepsis Screening Result: No Definite Risk - Focused Exam Vital Signs: Vital Signs Temp Pulse Pulse Resp BP Pulse Ox 01/20/20 08:34 94 01/20/20 08:10 94 18 108/57 L 94 L 01/20/20 04:00 36.2 C 84 18 103/55 L 92 L 01/20/20 00:00 36.4 C 98 18 115/55 L 92 L - Problem List Review Problem List Initiated/Reviewed/Updated: Yes - My Orders Last 24 Hours: My Active Orders 01/19/20 14:00 Gabapentin [Neurontin] 600 mg PO TID Warfarin Dosing [Coumadin Ask] 1 each PO DAILY@1400 01/19/20 17:30 Nystatin [Nystop] 1 gm TOP TID 01/19/20 21:27 traZODone 50 mg PO BEDTIME PRN 01/20/20 08:18 Digoxin [Lanoxin] 125 mcg PO TuThSa@0900 01/20/20 11:39 Magnesium Sulfate/Water [Magnesium Sulfate in Water Premix] 2 gm IV ONETIME ONE 01/20/20 11:40 Admission Status [Patient Status] [ADT] Routine 01/21/20 05:11 INR,PT,PROTHROMBIN TIME [COAG] AM - Plan Plan:: 69 yo female admitted for ambulatory dysfunction with lower leg edema. We will continue diuresis with lasix BID. Echocardiogram report pending. DM: continue ssi with bedtime levemir UTI: on rocephin, cultures pending Discharge, likely home tomorrow with home health
[2020-01-20] MEDS ORDERED: Magnesium Sulfate/Water 2 GM/50 ML BAG IV SCH (12:00)
[2020-01-20] MEDS: Enalapril 5 MG Tab PO SCH (12:57)
[2020-01-20] MEDS ORDERED: WARFARIN 1.5 MG PO SCH (14:00)
[2020-01-20] MEDS: Metoprolol Succinate 100 MG Tab.ER PO SCH (21:47)
[2020-01-20] MEDS: Insulin Glargine,Human Rec. Analog 100 Units/ML 3 ML Pen SUBCUT SCH (21:54)
[2020-01-21] MEDS: traZODone 50 MG Tab PO PRN (05:33)
[2020-01-21] MEDS: Gabapentin 300 MG Cap PO SCH ×3 (05:36→21:29)
[2020-01-21] MEDS: Nystatin Topical Powder 15 GM Bottle TOP SCH ×3 (05:37→21:31)
[2020-01-21 06:38] LABS: BLOOD UREA NITROGEN,BUN 14 mg/dL (7.0-18.0); CARBON DIOXIDE,CO2 35.9 mmol/L (21.0-32.0); CHLORIDE,CL 96 mmol/L (98-107); GLUCOSE RANDOM 149 mg/dL (74-106); POTASSIUM,K 3.6 mmol/L (3.5-5.1); SODIUM,NA 138 mmol/L (136-145)
[2020-01-21] MEDS: Insulin Aspart 100 Units/ML 3 ML Pen SUBCUT SCH ×3 (08:49→17:55)
[2020-01-21] MEDS: Furosemide 40 MG/4 ML VIAL IVPUSH SCH (09:04)
[2020-01-21] MEDS: Enalapril 5 MG Tab PO SCH (09:05)
[2020-01-21] MEDS ORDERED: Magnesium Sulfate/Water 2 GM/50 ML Premix Bag IV ONE (09:18)
[2020-01-21] MEDS ORDERED: Magnesium Sulfate/Water 2 GM/50 ML BAG IV ONE (09:30)
[2020-01-21] MEDS: DULoxetine 30 MG Cap PO SCH (09:53)
[2020-01-21] MEDS: Digoxin 250 MCG Tab PO SCH ×2 (09:56→10:23)
--- NOTE | 2020-01-21 11:10 | PCM.PN ---
- General Info Date of Service: 01/21/20 - Review of Systems Systems Review Comment:: feeling better, no dizziness, no shortness of breath, reports difficulty with transferring out of hospital bed due to arthritis but beleives she will due better with her left chair at home. - Patient Data Vitals - Most Recent: Last Vital Signs Temp 36.7 C 01/21/20 08:00 Pulse 95 01/21/20 10:23 Resp 18 01/21/20 08:00 BP 99/63 01/21/20 10:05 Pulse Ox 93 L 01/21/20 09:00 Weight - Most Recent: 114.844 kg I&O - Last 24 Hours: Intake & Output 01/20/20 01/21/20 01/21/20 22:59 06:59 14:59 Intake Total 600 550 Output Total 2200 2000 Balance -1600 -1450 Lab Results Last 24 Hours: Laboratory Results - last 24 hr 01/20/20 01/20/20 01/21/20 Range/Units 11:57 16:38 05:50 WBC (4.0-11.0) K/uL RBC (4.30-5.90) M/uL Hgb (12.0-16.0) g/dL Hct (36.0-46.0) % MCV (80.0-98.0) fL MCH (27.0-32.0) pg MCHC (31.0-37.0) g/dL RDW Std Deviation (28.0-62.0) fl RDW Coeff of Zaida (11.0-15.0) % Plt Count (150-400) K/uL MPV (7.40-12.00) fL Neut % (Auto) (48.0-80.0) % Lymph % (Auto) (16.0-40.0) % [place] % (Auto) (0.0-15.0) % Eos % (Auto) (0.0-7.0) % Baso % (Auto) (0.0-1.5) % Neut # (Auto) (1.4-5.7) K/uL Lymph # (Auto) (0.6-2.4) K/uL [place] # (Auto) (0.0-0.8) K/uL Eos # (Auto) (0.0-0.7) K/uL Baso # (Auto) (0.0-0.1) K/uL Nucleated RBC % /100WBC Nucleated RBCs # K/uL INR 1.37 Lactate (0.20-2.00) mmol/L Sodium (136-145) mmol/L Potassium (3.5-5.1) mmol/L Chloride (98-107) mmol/L Carbon Dioxide (21.0-32.0) mmol/L BUN (7.0-18.0) mg/dL Creatinine (0.6-1.0) mg/dL Est Cr Clr Drug Dosing Estimated GFR (MDRD) ml/min Glucose (74-106) mg/dL POC Glucose 141 H 202 H (60-110) mg/dL Calcium (8.5-10.1) mg/dL Magnesium (1.8-2.4) mg/dL Digoxin (0.9-2.0) ng/mL 01/21/20 01/21/20 01/21/20 Range/Units 05:50 05:50 05:50 WBC 7.68 (4.0-11.0) K/uL RBC 4.03 L (4.30-5.90) M/uL Hgb 14.1 (12.0-16.0) g/dL Hct 44.3 (36.0-46.0) % MCV 109.9 H (80.0-98.0) fL MCH 35.0 H (27.0-32.0) pg MCHC 31.8 (31.0-37.0) g/dL RDW Std Deviation 65.0 H (28.0-62.0) fl RDW Coeff of Zaida 16 H (11.0-15.0) % Plt Count 182 (150-400) K/uL MPV 10.70 (7.40-12.00) fL Neut % (Auto) 72.9 (48.0-80.0) % Lymph % (Auto) 10.8 L (16.0-40.0) % [place] % (Auto) 15.2 H (0.0-15.0) % Eos % (Auto) 0.8 (0.0-7.0) % Baso % (Auto) 0.3 (0.0-1.5) % Neut # (Auto) 5.6 (1.4-5.7) K/uL Lymph # (Auto) 0.8 (0.6-2.4) K/uL [place] # (Auto) 1.2 H (0.0-0.8) K/uL Eos # (Auto) 0.1 (0.0-0.7) K/uL Baso # (Auto) 0.0 (0.0-0.1) K/uL Nucleated RBC % 0.0 /100WBC Nucleated RBCs # 0 K/uL INR Lactate (0.20-2.00) mmol/L Sodium 138 (136-145) mmol/L Potassium 3.6 (3.5-5.1) mmol/L Chloride 96 L (98-107) mmol/L Carbon Dioxide 35.9 H (21.0-32.0) mmol/L BUN 14 (7.0-18.0) mg/dL Creatinine 0.8 (0.6-1.0) mg/dL Est Cr Clr Drug Dosing TNP Estimated GFR (MDRD) > 60.0 ml/min Glucose 149 H (74-106) mg/dL POC Glucose (60-110) mg/dL Calcium 8.2 L (8.5-10.1) mg/dL Magnesium 1.4 L (1.8-2.4) mg/dL Digoxin 0.9 (0.9-2.0) ng/mL 01/21/20 Range/Units 09:50 WBC (4.0-11.0) K/uL RBC (4.30-5.90) M/uL Hgb (12.0-16.0) g/dL Hct (36.0-46.0) % MCV (80.0-98.0) fL MCH (27.0-32.0) pg MCHC (31.0-37.0) g/dL RDW Std Deviation (28.0-62.0) fl RDW Coeff of Zaida (11.0-15.0) % Plt Count (150-400) K/uL MPV (7.40-12.00) fL Neut % (Auto) (48.0-80.0) % Lymph % (Auto) (16.0-40.0) % [place] % (Auto) (0.0-15.0) % Eos % (Auto) (0.0-7.0) % Baso % (Auto) (0.0-1.5) % Neut # (Auto) (1.4-5.7) K/uL Lymph # (Auto) (0.6-2.4) K/uL [place] # (Auto) (0.0-0.8) K/uL Eos # (Auto) (0.0-0.7) K/uL Baso # (Auto) (0.0-0.1) K/uL Nucleated RBC % /100WBC Nucleated RBCs # K/uL INR Lactate 1.7 (0.20-2.00) mmol/L Sodium (136-145) mmol/L Potassium (3.5-5.1) mmol/L Chloride (98-107) mmol/L Carbon Dioxide (21.0-32.0) mmol/L BUN (7.0-18.0) mg/dL Creatinine (0.6-1.0) mg/dL Est Cr Clr Drug Dosing Estimated GFR (MDRD) ml/min Glucose (74-106) mg/dL POC Glucose (60-110) mg/dL Calcium (8.5-10.1) mg/dL Magnesium (1.8-2.4) mg/dL Digoxin (0.9-2.0) ng/mL Hemanth Results Last 24 Hours: Microbiology 01/18/20 21:30 Urine Culture - Final Urine, Clean Catch Escherichia Coli Pseudomonas Aeruginosa Normal Urogenital Ashly Med Orders - Current: Current Medications Acetaminophen (Tylenol) 650 mg PO Q4H PRN PRN Reason: Pain (Mild 1-3)/fever Last Admin: 01/19/20 17:46 Dose: 650 mg Documented by: Albuterol/Ipratropium (Duoneb 3.0-0.5 Mg/3 Ml) 3 ml NEB Q4HRRT PRN PRN Reason: Shortness Of Breath/wheezing Digoxin (Lanoxin) 125 mcg PO TuThSa@0900 [facility] Last Admin: 01/20/20 10:09 Dose: Not Given Documented by: Digoxin (Lanoxin) 250 mcg PO SuMoWeFr@0900 [facility] Last Admin: 01/21/20 10:23 Dose: 250 mcg Documented by: Duloxetine HCl (Cymbalta) 60 mg PO DAILY [facility] Last Admin: 01/21/20 09:53 Dose: 60 mg Documented by: Gabapentin (Neurontin) 600 mg PO TID [facility] Last Admin: 01/21/20 05:36 Dose: 600 mg Documented by: Ceftriaxone Sodium/Dextrose 1 (gm/ Premix) 50 mls @ 100 mls/hr IV Q24H [facility] Last Admin: 01/20/20 23:48 Dose: 100 mls/hr Documented by: Insulin Aspart (Novolog) 0 unit SUBCUT TIDAC [facility]; Protocol Last Admin: 01/21/20 08:49 Dose: Not Given Documented by: Insulin Glargine (Lantus Solostar) 32 units SUBCUT BEDTIME [facility] Last Admin: 01/20/20 21:54 Dose: 32 unit Documented by: Metoprolol Succinate (Toprol Xl) 100 mg PO BEDTIME [facility] Last Admin: 01/20/20 21:47 Dose: 100 mg Documented by: Morphine Sulfate (Morphine) 1 mg IVPUSH Q4H PRN PRN Reason: Pain Last Admin: 01/20/20 01:07 Dose: 1 mg Documented by: Nystatin (Nystop) 1 gm TOP TID [facility] Last Admin: 01/21/20 05:37 Dose: 1 each Documented by: Trazodone HCl (Trazodone) 50 mg PO BEDTIME PRN PRN Reason: Insomnia Last Admin: 01/21/20 05:33 Dose: 50 mg Documented by: Warfarin Sodium (Coumadin Ask) 1 each PO DAILY@1400 [facility] Last Admin: 01/20/20 14:59 Dose: Not Given Documented by: Warfarin Sodium (Coumadin) 3 mg PO DAILY@1400 ONE Stop: 01/21/20 14:01 Discontinued Medications Enalapril Maleate (Vasotec) 5 mg PO DAILY [facility] Last Admin: 01/21/20 09:05 Dose: Not Given Documented by: Furosemide (Lasix) 40 mg IVPUSH BID [facility] Last Admin: 01/21/20 09:04 Dose: Not Given Documented by: Gabapentin (Neurontin) 200 mg PO TID [facility] Last Admin: 01/19/20 05:09 Dose: 200 mg Documented by: Heparin Sodium (Porcine) (Heparin Sodium) 5,000 units SUBCUT Q8H [facility] Last Admin: 01/18/20 21:53 Dose: Not Given Documented by: Heparin Sodium (Porcine) (Heparin Sodium) 5,000 units SUBCUT Q8H [facility] Last Admin: 01/19/20 19:06 Dose: Not Given Documented by: Magnesium Sulfate (Magnesium Sulfate In Water Premix) 2 gm in 50 mls @ 50 mls/hr IV ONETIME ONE Stop: 01/18/20 20:29 Last Admin: 01/18/20 20:45 Dose: 50 mls/hr Documented by: Ceftriaxone Sodium 1 gm/ (Sodium Chloride) 50 mls @ 100 mls/hr IV Q24H [facility] Ceftriaxone Sodium 1 gm/ (Sodium Chloride) 50 mls @ 100 mls/hr IV ONETIME ONE Stop: 01/18/20 23:29 Last Admin: 01/18/20 23:13 Dose: 100 mls/hr Documented by: Ceftriaxone Sodium/Dextrose (Rocephin In Dextrose,Iso-Osm 1 Gm/50 Ml) Confirm Administered Dose 50 mls @ as directed .ROUTE .STK-MED ONE Stop: 01/18/20 22:50 Last Admin: 01/18/20 23:08 Dose: Not Given Documented by: Magnesium Sulfate (Magnesium Sulfate In Water Premix) 2 gm in 50 mls @ 50 mls/hr IV ONETIME ONE Stop: 01/19/20 10:21 Last Admin: 01/19/20 10:36 Dose: 50 mls/hr Documented by: Magnesium Sulfate (Magnesium Sulfate In Water Premix) 2 gm in 50 mls @ 50 mls/hr IV ONETIME [facility] Last Admin: 01/20/20 18:21 Dose: 50 mls/hr Documented by: Magnesium Sulfate (Magnesium Sulfate In Water Premix) 2 gm in 50 mls @ 50 mls/hr IV ONETIME ONE Stop: 01/21/20 10:29 Last Admin: 01/21/20 09:55 Dose: 50 mls/hr Documented by: Magnesium Sulfate (Magnesium Sulfate In Water Premix) 2 gm IV ONETIME ONE Stop: 01/18/20 19:31 Meloxicam (Mobic) 15 mg PO DAILY PRN PRN Reason: Pain Warfarin Sodium (Coumadin) 1.5 mg PO DAILY@1400 [facility] Stop: 01/20/20 14:30 Last Admin: 01/20/20 14:37 Dose: 1.5 mg Documented by: - Exam General: Alert, Oriented HEENT: Pupils Equal Neck: Supple Lungs: Clear to Auscultation, Normal Respiratory Effort Cardiovascular: Regular Rate, Regular Rhythm GI/Abdominal Exam: Soft, Non-Tender, No Distention Extremities: Non-Tender, No Pedal Edema Skin: Warm, Dry, Intact Neurological: No New Focal Deficit Sepsis Event Note - Evaluation Sepsis Screening Result: No Definite Risk - Focused Exam Vital Signs: Vital Signs Temp Pulse Pulse Resp BP BP BP 01/21/20 10:23 95 01/21/20 10:05 96 99/63 01/21/20 09:56 99 01/21/20 09:05 83/37 L 01/21/20 09:00 82/34 L 01/21/20 08:00 36.7 C 99 18 83/37 L 01/21/20 03:00 37.4 C 106 H 14 95/43 L 01/20/20 23:50 36.8 C 93 18 106/57 L Pulse Ox 01/21/20 10:23 01/21/20 10:05 01/21/20 09:56 01/21/20 09:05 01/21/20 09:00 93 L 01/21/20 08:00 92 L 01/21/20 03:00 92 L 01/20/20 23:50 93 L - Problem List Review Problem List Initiated/Reviewed/Updated: Yes - My Orders Last 24 Hours: My Active Orders 01/20/20 11:40 Admission Status [Patient Status] [ADT] Routine 01/21/20 09:57 Remove [place] Catheter [Urinary Catheter Removal] [RC] PER UNIT ROUTINE 01/21/20 14:00 Warfarin [Coumadin] 3 mg PO DAILY@1400 ONE 01/22/20 05:11 BASIC METABOLIC PANEL,BMP [CHEM] AM CBC WITH AUTO DIFF [HEME] AM - Plan Plan:: 69 yo female admitted for ambulatory dysfunction with lower leg edema. BP low this morning will hold lasix. Echocardiogram report pending. DM: continue ssi with bedtime levemir UTI: on rocephin, cultures pending Discharge, likely home tomorrow with home health
[2020-01-21] MEDS: Acetaminophen 325 MG Tab PO PRN (13:31)
[2020-01-21] MEDS ORDERED: Warfarin 2 MG Tab PO ONE (14:00)
[2020-01-21] MEDS: Insulin Glargine,Human Rec. Analog 100 Units/ML 3 ML Pen SUBCUT SCH (20:31)
[2020-01-21] MEDS ORDERED: Metoprolol Succinate 50 MG Tab.ER PO ONE (21:00)
[2020-01-21] MEDS: cefTRIAXone 1 GM in Premix Bag 1 BAG IV SCH (22:34)
[2020-01-22] MEDS: Gabapentin 300 MG Cap PO SCH ×2 (06:23→14:49)
[2020-01-22] MEDS: Nystatin Topical Powder 15 GM Bottle TOP SCH ×2 (06:23→14:50)
[2020-01-22 06:32] LABS: BLOOD UREA NITROGEN,BUN 16 mg/dL (7.0-18.0); CARBON DIOXIDE,CO2 35.4 mmol/L (21.0-32.0); CHLORIDE,CL 96 mmol/L (98-107); GLUCOSE RANDOM 172 mg/dL (74-106); POTASSIUM,K 3.5 mmol/L (3.5-5.1); SODIUM,NA 137 mmol/L (136-145)
[2020-01-22] MEDS: Insulin Aspart 100 Units/ML 3 ML Pen SUBCUT SCH ×2 (06:32→12:53)
[2020-01-22] MEDS: DULoxetine 30 MG Cap PO SCH (09:09)
[2020-01-22] MEDS: Digoxin 250 MCG Tab PO SCH (09:09)
--- NOTE | 2020-01-22 11:13 | PCM.DCSUM1 ---
Discharge Summary - Discharge Data Discharge Date: 01/22/20 Discharge Disposition: Home, W Home Health Agency 06 Condition: Good - Referral to Home Health Date of Face to Face Encounter: 01/22/20 Reason for Homebound Status: severe arthritis causing limited mobiltiy and inability to leave home without assistance Primary Care Physician: Lucio Mcgowan MD Skilled Need: need for physical therapy for strenght and mobility training, half-way to assess new medicaitons including response to diuretic and monitoring INR while one coumadin. - Patient Summary/Data Consults: Consultations 01/18/20 17:52 Consult to Wound Care Services [CONS] Routine 01/18/20 17:54 Consult to Physical Therapy [PT Evaluation and Treatment] [CONS] Routine 01/22/20 08:56 Consult to Home Care [Consult to Home Health] [CONS] Routine Hospital Course: Patient is a 69 y/o F with PMH of Afib, High cholesterol, Hypertension, Pulmonary hypertension, DM, OA, obesity, gout, who was directly admitted from Dr. Mcgowan's clinic. She presented with swollen legs with copious serous drainage. Due to the swelling and severe arthritis she was not able to perform her ADLS safely at home. She was admitted for volume overload and diuresed with Lasix. She did have resolution of leg swelling and had return to her baseline level of mobility which is fairly restricted at baseline limited to transferring from chair to bed. Patient was offered residential placement but refused. We will discharge home with home health. She was treated for an E.coli UTI with Rocephin and switch to ciprofloxacin at discharge. - Patient Instructions Diet: Heart Healthy Diet - Discharge Plan Prescriptions/Med Rec: Ciprofloxacin [Ciprofloxacin HCl] 500 mg PO BID #5 tab Furosemide [Lasix] 20 mg PO DAILY #30 tablet Home Medications: Home Meds DULoxetine [Cymbalta] 60 mg PO DAILY 05/16/14 [History] Digoxin 125 mcg PO TUTHSA 05/16/14 [History] Digoxin 250 mcg PO SUMOWEFR 05/16/14 [History] Enalapril [Vasotec] 5 mg PO DAILY 05/16/14 [History] Metoprolol Succinate [Toprol Xl] 100 mg PO BEDTIME 05/16/14 [History] metFORMIN [Glucophage] 1,000 mg PO BIDM 05/16/14 [History] Insulin Aspart [Novolog Flexpen] 17 unit SQ ACLUNCH 09/30/15 [History] Insulin Glarg,Human.Rec.Analog [Lantus Solostar] 32 unit SUBCUT BEDTIME 09/30/15 [History] Insulin Aspart [Novolog Flexpen] 23 units SQ ACDINNER 12/16/15 [History] Acetaminophen/Codeine [Tylenol with Codeine No.3 300MG/30MG] 1 tab PO Q4H PRN 01/19/20 [History] Gabapentin [Neurontin] 600 mg PO TID 01/19/20 [History] Warfarin [Coumadin] 1.5 mg PO SUTUTHSA@1400 01/19/20 [History] Warfarin [Coumadin] 3 mg PO MOWEFR@1400 01/19/20 [History] Ciprofloxacin [Ciprofloxacin HCl] 500 mg PO BID #5 tab 01/22/20 [Rx] Furosemide [Lasix] 20 mg PO DAILY #30 tablet 01/22/20 [Rx] Referrals: Lucio Mcgowan MD [Primary Care Provider] - 01/29/20 2:30 pm - Discharge Summary/Plan Comment DC Time >30 min.: No - Patient Data Vitals - Most Recent: Last Vital Signs Temp 36.3 C 01/22/20 08:00 Pulse 96 01/22/20 09:09 Resp 19 01/22/20 08:05 BP 106/49 L 01/22/20 08:00 Pulse Ox 92 L 01/22/20 08:05 Weight - Most Recent: 114.844 kg I&O - Last 24 hours: Intake & Output 01/21/20 01/22/20 01/22/20 22:59 06:59 14:59 Intake Total 600 650 Output Total 300 520 Balance 300 130 Lab Results - Last 24 hrs: Laboratory Results - last 24 hr 01/21/20 01/21/20 01/21/20 Range/Units 11:35 17:29 20:26 WBC (4.0-11.0) K/uL RBC (4.30-5.90) M/uL Hgb (12.0-16.0) g/dL Hct (36.0-46.0) % MCV (80.0-98.0) fL MCH (27.0-32.0) pg MCHC (31.0-37.0) g/dL RDW Std Deviation (28.0-62.0) fl RDW Coeff of Zaida (11.0-15.0) % Plt Count (150-400) K/uL MPV (7.40-12.00) fL Neut % (Auto) (48.0-80.0) % Lymph % (Auto) (16.0-40.0) % [place] % (Auto) (0.0-15.0) % Eos % (Auto) (0.0-7.0) % Baso % (Auto) (0.0-1.5) % Neut # (Auto) (1.4-5.7) K/uL Lymph # (Auto) (0.6-2.4) K/uL [place] # (Auto) (0.0-0.8) K/uL Eos # (Auto) (0.0-0.7) K/uL Baso # (Auto) (0.0-0.1) K/uL Nucleated RBC % /100WBC Nucleated RBCs # K/uL INR Sodium (136-145) mmol/L Potassium (3.5-5.1) mmol/L Chloride (98-107) mmol/L Carbon Dioxide (21.0-32.0) mmol/L BUN (7.0-18.0) mg/dL Creatinine (0.6-1.0) mg/dL Est Cr Clr Drug Dosing Estimated GFR (MDRD) ml/min Glucose (74-106) mg/dL POC Glucose 182 H 221 H 253 H (60-110) mg/dL Calcium (8.5-10.1) mg/dL 01/22/20 01/22/20 01/22/20 Range/Units 05:30 05:30 06:03 WBC 6.62 (4.0-11.0) K/uL RBC 3.89 L (4.30-5.90) M/uL Hgb 13.5 (12.0-16.0) g/dL Hct 42.6 (36.0-46.0) % MCV 109.5 H (80.0-98.0) fL MCH 34.7 H (27.0-32.0) pg MCHC 31.7 (31.0-37.0) g/dL RDW Std Deviation 63.6 H (28.0-62.0) fl RDW Coeff of Zaida 16 H (11.0-15.0) % Plt Count 176 (150-400) K/uL MPV 10.40 (7.40-12.00) fL Neut % (Auto) 67.2 (48.0-80.0) % Lymph % (Auto) 14.7 L (16.0-40.0) % [place] % (Auto) 16.6 H (0.0-15.0) % Eos % (Auto) 1.2 (0.0-7.0) % Baso % (Auto) 0.3 (0.0-1.5) % Neut # (Auto) 4.5 (1.4-5.7) K/uL Lymph # (Auto) 1.0 (0.6-2.4) K/uL [place] # (Auto) 1.1 H (0.0-0.8) K/uL Eos # (Auto) 0.1 (0.0-0.7) K/uL Baso # (Auto) 0.0 (0.0-0.1) K/uL Nucleated RBC % 0.0 /100WBC Nucleated RBCs # 0 K/uL INR Sodium 137 (136-145) mmol/L Potassium 3.5 (3.5-5.1) mmol/L Chloride 96 L (98-107) mmol/L Carbon Dioxide 35.4 H (21.0-32.0) mmol/L BUN 16 (7.0-18.0) mg/dL Creatinine 0.8 (0.6-1.0) mg/dL Est Cr Clr Drug Dosing TNP Estimated GFR (MDRD) > 60.0 ml/min Glucose 172 H (74-106) mg/dL POC Glucose 169 H (60-110) mg/dL Calcium 8.0 L (8.5-10.1) mg/dL 01/22/20 Range/Units 09:12 WBC (4.0-11.0) K/uL RBC (4.30-5.90) M/uL Hgb (12.0-16.0) g/dL Hct (36.0-46.0) % MCV (80.0-98.0) fL MCH (27.0-32.0) pg MCHC (31.0-37.0) g/dL RDW Std Deviation (28.0-62.0) fl RDW Coeff of Zaida (11.0-15.0) % Plt Count (150-400) K/uL MPV (7.40-12.00) fL Neut % (Auto) (48.0-80.0) % Lymph % (Auto) (16.0-40.0) % [place] % (Auto) (0.0-15.0) % Eos % (Auto) (0.0-7.0) % Baso % (Auto) (0.0-1.5) % Neut # (Auto) (1.4-5.7) K/uL Lymph # (Auto) (0.6-2.4) K/uL [place] # (Auto) (0.0-0.8) K/uL Eos # (Auto) (0.0-0.7) K/uL Baso # (Auto) (0.0-0.1) K/uL Nucleated RBC % /100WBC Nucleated RBCs # K/uL INR 1.37 Sodium (136-145) mmol/L Potassium (3.5-5.1) mmol/L Chloride (98-107) mmol/L Carbon Dioxide (21.0-32.0) mmol/L BUN (7.0-18.0) mg/dL Creatinine (0.6-1.0) mg/dL Est Cr Clr Drug Dosing Estimated GFR (MDRD) ml/min Glucose (74-106) mg/dL POC Glucose (60-110) mg/dL Calcium (8.5-10.1) mg/dL ALEJANDRA Results - Last 24 hrs: Microbiology 01/18/20 21:30 Urine Culture - Final Urine, Clean Catch Escherichia Coli Pseudomonas Aeruginosa Normal Urogenital Ashly Med Orders - Current: Current Medications Acetaminophen (Tylenol) 650 mg PO Q4H PRN PRN Reason: Pain (Mild 1-3)/fever Last Admin: 01/21/20 13:31 Dose: 650 mg Documented by: Albuterol/Ipratropium (Duoneb 3.0-0.5 Mg/3 Ml) 3 ml NEB Q4HRRT PRN PRN Reason: Shortness Of Breath/wheezing Digoxin (Lanoxin) 125 mcg PO TuThSa@0900 [facility] Last Admin: 01/20/20 10:09 Dose: Not Given Documented by: Digoxin (Lanoxin) 250 mcg PO SuMoWeFr@0900 [facility] Last Admin: 01/22/20 09:09 Dose: 250 mcg Documented by: Duloxetine HCl (Cymbalta) 60 mg PO DAILY [facility] Last Admin: 01/22/20 09:09 Dose: 60 mg Documented by: Gabapentin (Neurontin) 600 mg PO TID [facility] Last Admin: 01/22/20 06:23 Dose: 600 mg Documented by: Ceftriaxone Sodium/Dextrose 1 (gm/ Premix) 50 mls @ 100 mls/hr IV Q24H [facility] Last Admin: 01/21/20 22:34 Dose: 100 mls/hr Documented by: Insulin Aspart (Novolog) 0 unit SUBCUT TIDAC [facility]; Protocol Last Admin: 01/22/20 06:32 Dose: 2 units Documented by: Insulin Glargine (Lantus Solostar) 32 units SUBCUT BEDTIME [facility] Last Admin: 01/21/20 20:31 Dose: 32 unit Documented by: Metoprolol Succinate (Toprol Xl) 100 mg PO BEDTIME [facility] Last Admin: 01/20/20 21:47 Dose: 100 mg Documented by: Morphine Sulfate (Morphine) 1 mg IVPUSH Q4H PRN PRN Reason: Pain Last Admin: 01/20/20 01:07 Dose: 1 mg Documented by: Nystatin (Nystop) 1 gm TOP TID [facility] Last Admin: 01/22/20 06:23 Dose: 1 each Documented by: Trazodone HCl (Trazodone) 50 mg PO BEDTIME PRN PRN Reason: Insomnia Last Admin: 01/21/20 05:33 Dose: 50 mg Documented by: Warfarin Sodium (Coumadin Ask) 1 each PO DAILY@1400 [facility] Last Admin: 01/21/20 14:29 Dose: Not Given Documented by: Discontinued Medications Enalapril Maleate (Vasotec) 5 mg PO DAILY [facility] Last Admin: 01/21/20 09:05 Dose: Not Given Documented by: Furosemide (Lasix) 40 mg IVPUSH BID [facility] Last Admin: 01/21/20 09:04 Dose: Not Given Documented by: Gabapentin (Neurontin) 200 mg PO TID [facility] Last Admin: 01/19/20 05:09 Dose: 200 mg Documented by: Heparin Sodium (Porcine) (Heparin Sodium) 5,000 units SUBCUT Q8H [facility] Last Admin: 01/18/20 21:53 Dose: Not Given Documented by: Heparin Sodium (Porcine) (Heparin Sodium) 5,000 units SUBCUT Q8H [facility] Last Admin: 01/19/20 19:06 Dose: Not Given Documented by: Magnesium Sulfate (Magnesium Sulfate In Water Premix) 2 gm in 50 mls @ 50 mls/hr IV ONETIME ONE Stop: 01/18/20 20:29 Last Admin: 01/18/20 20:45 Dose: 50 mls/hr Documented by: Ceftriaxone Sodium 1 gm/ (Sodium Chloride) 50 mls @ 100 mls/hr IV Q24H [facility] Ceftriaxone Sodium 1 gm/ (Sodium Chloride) 50 mls @ 100 mls/hr IV ONETIME ONE Stop: 01/18/20 23:29 Last Admin: 01/18/20 23:13 Dose: 100 mls/hr Documented by: Ceftriaxone Sodium/Dextrose (Rocephin In Dextrose,Iso-Osm 1 Gm/50 Ml) Confirm Administered Dose 50 mls @ as directed .ROUTE .STK-MED ONE Stop: 01/18/20 22:50 Last Admin: 01/18/20 23:08 Dose: Not Given Documented by: Magnesium Sulfate (Magnesium Sulfate In Water Premix) 2 gm in 50 mls @ 50 mls/hr IV ONETIME ONE Stop: 01/19/20 10:21 Last Admin: 01/19/20 10:36 Dose: 50 mls/hr Documented by: Magnesium Sulfate (Magnesium Sulfate In Water Premix) 2 gm in 50 mls @ 50 mls/hr IV ONETIME [facility] Last Admin: 01/20/20 18:21 Dose: 50 mls/hr Documented by: Magnesium Sulfate (Magnesium Sulfate In Water Premix) 2 gm in 50 mls @ 50 mls/hr IV ONETIME ONE Stop: 01/21/20 10:29 Last Admin: 01/21/20 09:55 Dose: 50 mls/hr Documented by: Magnesium Sulfate (Magnesium Sulfate In Water Premix) 2 gm IV ONETIME ONE Stop: 01/18/20 19:31 Meloxicam (Mobic) 15 mg PO DAILY PRN PRN Reason: Pain Metoprolol Succinate (Toprol Xl) 50 mg PO ONETIME ONE Stop: 01/21/20 21:01 Last Admin: 01/21/20 20:43 Dose: 50 mg Documented by: Warfarin Sodium (Coumadin) 1.5 mg PO DAILY@1400 [facility] Stop: 01/20/20 14:30 Last Admin: 01/20/20 14:37 Dose: 1.5 mg Documented by: Warfarin Sodium (Coumadin) 3 mg PO DAILY@1400 ONE Stop: 01/21/20 14:01 Last Admin: 01/21/20 13:30 Dose: 3 mg Documented by:
[2020-01-22] MEDS ORDERED: Warfarin 2 MG Tab PO ONE (14:00)
[2020-01-22 15:02] VITALS: BP 117/51; PULSE 98
--- NOTE | 2020-01-24 11:08 | ECHO ---
EXAM DATE: 01/20/20 PATIENT'S AGE: 69 The ECHO report has been scanned into [facility] and can be seen in this patient's EMR (Electronic Medical Record) under the REPORTS section. The report has also been scanned into PACS. ANTONIO
== END 2020-01-22 16:00 | disposition home health service (06) | DRG 641 ==
LOC: MW.ICU 17:03 → MW.MS 01-19 05:48 → OBSVTOIN 01-20 11:40
PROVIDERS: ADMIT Student in an Organized Health Care Education/Training Program; ATTEND Student in an Organized Health Care Education/Training Program
DX: R26.2 Difficulty in walking, not elsewhere classified (principal); R60.9 Edema, unspecified; E87.70 Fluid overload, unspecified; N39.0 Urinary tract infection, site not specified; I10 Essential (primary) hypertension; E11.9 Type 2 diabetes mellitus without complications; H54.7 Unspecified visual loss; E78.00 Pure hypercholesterolemia, unspecified; I48.91 Unspecified atrial fibrillation; M10.9 Gout, unspecified; F32.9 Major depressive disorder, single episode, unspecified; F41.9 Anxiety disorder, unspecified; E66.9 Obesity, unspecified; L40.9 Psoriasis, unspecified; Z85.42 Personal history of malignant neoplasm of other parts of uterus; Z98.890 Other specified postprocedural states; Z88.8 Allergy status to other drugs, medicaments and biological substances; Z79.4 Long term (current) use of insulin; Z79.899 Other long term (current) drug therapy; Z79.01 Long term (current) use of anticoagulants; I27.20 Pulmonary hypertension, unspecified; E78.5 Hyperlipidemia, unspecified; M19.90 Unspecified osteoarthritis, unspecified site; B96.20 Unspecified Escherichia coli [E. coli] as the cause of diseases classified elsewhere; Z20.828 Contact with and (suspected) exposure to other viral communicable diseases
CPT/HCPCS: 36415 ×3; 51702; 80048 ×2; 80053; 81001; 82962 ×7; 83735 ×3; 84100 ×2; 85025 ×3; 85610 ×2; 87086; 87088 ×2; 87186 ×2; 93306; 96365; 96367; 96372 ×2; 96375; 96376 ×2; 97161; 97530 ×2; A9270 ×14; G0378 ×4; J0696 ×2; J1644 ×2; J1815 ×2; J1940 ×4; J2270; J3475 ×2; J7050; U0002; 80162; 83605; 99219; 99225; 99231; 99238

== ENCOUNTER 2020-02-16 19:39 | Inpatient (IN) | payer MEDICARE, BC ==
[2020-02-16] MEDS ORDERED: Sodium Chloride 0.9% 2.5 ML Syringe FLUSH PRN (20:01)
[2020-02-16] MEDS ORDERED: Sodium Chloride 0.9% 10 ML Syringe FLUSH PRN (20:01)
--- NOTE | 2020-02-16 20:24 | PCM.SN.2 ---
- Free Text/Narrative Note: Heart rate = 80 bpm, atrial fibrillation, normal QRS interval, no STEMI. EKG and rhythm strip interpreted by me at 2018
[2020-02-16 20:28] LABS: BLOOD UREA NITROGEN,BUN 25 mg/dL (7.0-18.0); CARBON DIOXIDE,CO2 29.9 mmol/L (21.0-32.0); CHLORIDE,CL 97 mmol/L (98-107); GLUCOSE RANDOM 201 mg/dL (74-106); LIPASE 45 U/L (73-393); POTASSIUM,K 4.8 mmol/L (3.5-5.1); SODIUM,NA 137 mmol/L (136-145)
--- NOTE | 2020-02-16 21:14 | EDM.PDOC ---
ED HPI GENERAL MEDICAL PROBLEM - General Chief Complaint: General Stated Complaint: IMOBILITY Time Seen by Provider: 02/16/20 19:48 Source of Information: Reports: Patient History Limitations: Reports: No Limitations - History of Present Illness INITIAL COMMENTS - FREE TEXT/NARRATIVE: HISTORY AND PHYSICAL: History of present illness: Patient is a 69-year-old female who presents to the ED today via EMS for concern of generalized weakness and the inability to take care of herself at home. Patient states since her last admission in the hospital on 01/21, she has had worsening weakness and increased inability to take care of herself. Family member states that patient has not had a bath or shower since she was in the hospital last as she is unable to take care of herself and lives at home alone. After her last hospital stay, she was to be seen by home health who only comes 2 times a week. Patient states that home health is been busy and not been able to help her completely as they are low on nursing staff. Patient states that she is able to somewhat able to get around but very limited with a walker. Patient states that she is here today after her family expressed concern as she was stuck an unable to get off the toilet for several hours until family arrived and called EMS to assist. States that she does have chronic ulcers of her legs and of her buttocks. States that her left leg is also "frozen" due to arthritis which is part of her limitation in mobility. She has a history of atrial fibrillation, hyperlipidemia, hypertension, pulmonary hypertension, type 2 diabetes on insulin, morbid obesity. Patient denies fever, chills, chest pain, shortness of breath, or cough. Denies headache, neck stiff ness, change in vision, syncope, or near syncope. Denies nausea, vomiting, abdominal pain, diarrhea, constipation, or dysuria. Has not noted any blood in urine or stool. Patient has been eating and drinking appropriately. Review of systems: As per history of present illness and below otherwise all systems reviewed and negative. Past medical history: As per history of present illness and as reviewed below otherwise noncontributory. Surgical history: As per history of present illness and as reviewed below otherwise noncontributory. Social history: See social history for further information Family history: As per history of present illness and as reviewed below otherwise noncontributory. Physical exam: General: Patient is alert, oriented, and in no acute distress. Patient laying comfortably on exam table. HEENT: Atraumatic, normocephalic, pupils equal and reactive bilaterally, negative for conjunctival pallor or scleral icterus, mucous membranes moist, TMs normal bilaterally, throat clear, neck supple, nontender, trachea midline. No drooling or trismus noted. No meningeal signs. No hot potato voice noted. Lungs: Clear to auscultation, breath sounds equal bilaterally, chest nontender. Heart: S1S2, regular rate and rhythm without overt murmur Abdomen: Morbidly obese. Otherwise, soft, nondistended, nontender. Negative for masses or hepatosplenomegaly. Negative for costovertebral tenderness. Pelvis: Stable nontender. Genitourinary: Deferred. Rectal: Deferred. Skin: Under the bilateral breasts are large amount of scattered satellite lesions indicating a likely candidal dermatitis. Otherwise, intact, warm, dry. No lesions or rashes noted. (See notes for limitation of skin exam---Dr. Mcdowell and Rico made aware of this limitation) Extremities: She does have limited ROM of her lower extremities at baseline according to patient and left leg more than the right. She does have full ROM of bilateral upper extremities. Cap refill intact of all extremities with DP/PT intact and radial pulses intact throughout all extremities. Patient unable to move herself/roll in the bed without assistance of 3 staff members which she states this is usual for her and chronic. Otherwise, atraumatic, negative for cords or calf pain. Neurovascular unremarkable. Neuro: Awake, alert, oriented. Cranial nerves II through XII unremarkable. Exam nonfocal. Patient unable to ambulate due to weakness. Notes: 93-94% on RA. Breathing comfortably on exam. I was unable to perform a genitourinary and skin exam of the perineum at this time due to the inability to move patient and will request more assistance. Dr. Gómez Consulted on patient and will admit to inpatient, still awaiting urinalysis, but due to limited nursing staff due to state of the ED at this time, UA is delayed. Dr. Mcdowell has assumed care of patient while awaiting transfer to the floor. I am still unable to perform a full skin exam of the perineum due to requirements to move patient and current ED status. Dr. Mcdowell/Dr. Gómez made aware that I was unable to perform this at this time as well as awaiting urinalysis results. Diagnostics: EKG, CBC, CMP, UA, chest x-ray, troponin, COVID19 Therapeutics: NS Impression: Total self care deficit Generalized weakness Urinary tract infection Hypocalcemia Candidal dermatitis, bilateral breasts Plan: Admit to inpatient to Dr. Gómez Definitive disposition and diagnosis as appropriate pending reevaluation and review of above. Body Pain Score (Numeric/FACES): 4 - Related Data Allergies Allergy/AdvReac Type Severity Reaction Status Date / Time lorazepam [From Ativan] Allergy Hallucinati Verified 02/19/20 12:38 ons Home Meds: Home Meds DULoxetine [Cymbalta] 90 mg PO DAILY 05/16/14 [History] Digoxin 125 mcg PO TUTHSA 05/16/14 [History] Digoxin 250 mcg PO SUMOWEFR 05/16/14 [History] Metoprolol Succinate [Toprol Xl] 100 mg PO BEDTIME 05/16/14 [History] metFORMIN [Glucophage] 1,000 mg PO BIDM 05/16/14 [History] Insulin Glarg,Human.Rec.Analog [Lantus Solostar] 32 unit SUBCUT BEDTIME 09/30/15 [History] Insulin Aspart [Novolog Flexpen] 23 units SQ ACDINNER 12/16/15 [History] Acetaminophen/Codeine [Tylenol with Codeine No.3 300MG/30MG] 1 tab PO Q4H PRN 01/19/20 [History] Gabapentin [Neurontin] 600 mg PO TID 01/19/20 [History] Warfarin [Coumadin] 1.5 mg PO SUTUTHSA@1400 01/19/20 [History] Warfarin [Coumadin] 3 mg PO MOWEFR@1400 01/19/20 [History] Furosemide [Lasix] 40 mg PO DAILY 02/19/20 [History] Potassium Chloride [Klor-Con M20] 20 meq PO DAILY 02/20/20 [History] levoFLOXacin [Levaquin] 750 mg PO DAILY 4 Days #4 tab 02/20/20 [Rx] Past Medical History HEENT History: Reports: Impaired Vision Other HEENT History: wearas glasses Cardiovascular History: Reports: Afib, High Cholesterol, Hypertension, Pulmonary Hypertension Other Cardiovascular History: hx intermittent afib Respiratory History: Reports: None Gastrointestinal History: Reports: None Genitourinary History: Reports: None, Other (See Below) [employer] WORKER History: Reports: None Musculoskeletal History: Reports: Arthritis, Gout Neurological History: Reports: None Psychiatric History: Reports: Anxiety, Depression, Other (See Below) Endocrine/Metabolic History: Reports: Diabetes, Type II, Obesity/BMI 30+ Hematologic History: Reports: None Immunologic History: Reports: None Oncologic (Cancer) History: Reports: Uterine Dermatologic History: Reports: Psoriasis Other Dermatologic History: on face - Infectious Disease History Infectious Disease History: Reports: None - Past Surgical History Head Surgeries/Procedures: Reports: None Neurological Surgical History: Reports: Spinal Fusion Musculoskeletal Surgical History: Reports: Other (See Below) Oncologic Surgical History: Reports: Other (See Below) Social & Family History - Family History HEENT: Reports: None Musculoskeletal: Reports: Arthritis Neurological: Reports: CVA - Tobacco Use Tobacco Use Status *Q: Unknown Ever Used Tobacco - Caffeine Use Caffeine Use: Reports: None - Recreational Drug Use Recreational Drug Use: No ED ROS GENERAL - Review of Systems Review Of Systems: Comprehensive ROS is negative, except as noted in HPI. ED EXAM, GENERAL - Physical Exam Exam: See Below (see dictation) Course - Vital Signs Last Recorded V/S: Last Vital Signs Temp 95.6 F L 02/20/20 11:40 Pulse 70 02/20/20 11:40 Resp 12 02/20/20 11:40 BP 121/60 02/20/20 11:40 Pulse Ox 93 L 02/20/20 11:40 - Orders/Labs/Meds Labs: Laboratory Tests 02/16/20 02/16/20 02/16/20 Range/Units 19:50 19:58 19:58 WBC 8.37 (4.0-11.0) K/uL RBC 4.59 (4.30-5.90) M/uL Hgb 15.0 (12.0-16.0) g/dL Hct 48.8 H (36.0-46.0) % MCV 106.3 H (80.0-98.0) fL MCH 32.7 H (27.0-32.0) pg MCHC 30.7 L (31.0-37.0) g/dL RDW Std Deviation 65.4 H (28.0-62.0) fl RDW Coeff of Zaida 17 H (11.0-15.0) % Plt Count 188 (150-400) K/uL MPV 11.00 (7.40-12.00) fL Neut % (Auto) 79.0 (48.0-80.0) % Lymph % (Auto) 9.6 L (16.0-40.0) % [place] % (Auto) 10.2 (0.0-15.0) % Eos % (Auto) 0.7 (0.0-7.0) % Baso % (Auto) 0.5 (0.0-1.5) % Neut # (Auto) 6.6 H (1.4-5.7) K/uL Lymph # (Auto) 0.8 (0.6-2.4) K/uL [place] # (Auto) 0.9 H (0.0-0.8) K/uL Eos # (Auto) 0.1 (0.0-0.7) K/uL Baso # (Auto) 0.0 (0.0-0.1) K/uL Nucleated RBC % 0.0 /100WBC Nucleated RBCs # 0 K/uL Sodium 137 (136-145) mmol/L Potassium 4.8 (3.5-5.1) mmol/L Chloride 97 L (98-107) mmol/L Carbon Dioxide 29.9 (21.0-32.0) mmol/L BUN 25 H (7.0-18.0) mg/dL Creatinine 1.1 H (0.6-1.0) mg/dL Est Cr Clr Drug Dosing 44.55 mL/min Estimated GFR (MDRD) 49.1 ml/min Glucose 201 H (74-106) mg/dL Calcium 8.0 L (8.5-10.1) mg/dL Total Bilirubin 1.4 H (0.2-1.0) mg/dL AST 19 (15-37) IU/L ALT 9 L (14-63) IU/L Alkaline Phosphatase 122 H (46-116) U/L Creatine Kinase 51 (26-308) U/L Troponin I < 0.050 (0.000-0.056) ng/mL Total Protein 7.0 (6.4-8.2) g/dL Albumin 2.9 L (3.4-5.0) g/dL Globulin 4.1 H (2.6-4.0) g/dL Albumin/Globulin Ratio 0.7 L (0.9-1.6) Lipase 45 L (73-393) U/L Urine Color Urine Appearance Urine pH (5.0-8.0) Ur Specific Grass Range (1.001-1.035) Urine Protein (NEGATIVE) mg/dL Urine Glucose (UA) (NEGATIVE) mg/dL Urine Ketones (NEGATIVE) mg/dL Urine Occult Blood (NEGATIVE) Urine Nitrite (NEGATIVE) Urine Bilirubin (NEGATIVE) Urine Urobilinogen (<2.0) EU/dL Ur Leukocyte Esterase (NEGATIVE) Urine RBC (0-2/HPF) Urine WBC (0-5/HPF) Ur Epithelial Cells (NONE-FEW) Urine Bacteria (NEGATIVE) Urine Mucus (NONE-MOD) SARS-CoV-2 RNA (FELIPE) (NEGATIVE) 02/16/20 02/16/20 Range/Units 21:15 23:00 WBC (4.0-11.0) K/uL RBC (4.30-5.90) M/uL Hgb (12.0-16.0) g/dL Hct (36.0-46.0) % MCV (80.0-98.0) fL MCH (27.0-32.0) pg MCHC (31.0-37.0) g/dL RDW Std Deviation (28.0-62.0) fl RDW Coeff of Zaida (11.0-15.0) % Plt Count (150-400) K/uL MPV (7.40-12.00) fL Neut % (Auto) (48.0-80.0) % Lymph % (Auto) (16.0-40.0) % [place] % (Auto) (0.0-15.0) % Eos % (Auto) (0.0-7.0) % Baso % (Auto) (0.0-1.5) % Neut # (Auto) (1.4-5.7) K/uL Lymph # (Auto) (0.6-2.4) K/uL [place] # (Auto) (0.0-0.8) K/uL Eos # (Auto) (0.0-0.7) K/uL Baso # (Auto) (0.0-0.1) K/uL Nucleated RBC % /100WBC Nucleated RBCs # K/uL Sodium (136-145) mmol/L Potassium (3.5-5.1) mmol/L Chloride (98-107) mmol/L Carbon Dioxide (21.0-32.0) mmol/L BUN (7.0-18.0) mg/dL Creatinine (0.6-1.0) mg/dL Est Cr Clr Drug Dosing mL/min Estimated GFR (MDRD) ml/min Glucose (74-106) mg/dL Calcium (8.5-10.1) mg/dL Total Bilirubin (0.2-1.0) mg/dL AST (15-37) IU/L ALT (14-63) IU/L Alkaline Phosphatase (46-116) U/L Creatine Kinase (26-308) U/L Troponin I (0.000-0.056) ng/mL Total Protein (6.4-8.2) g/dL Albumin (3.4-5.0) g/dL Globulin (2.6-4.0) g/dL Albumin/Globulin Ratio (0.9-1.6) Lipase (73-393) U/L Urine Color YELLOW Urine Appearance CLOUDY Urine pH 6.0 (5.0-8.0) Ur Specific Grass Range 1.020 (1.001-1.035) Urine Protein NEGATIVE (NEGATIVE) mg/dL Urine Glucose (UA) NEGATIVE (NEGATIVE) mg/dL Urine Ketones 15 H (NEGATIVE) mg/dL Urine Occult Blood MODERATE H (NEGATIVE) Urine Nitrite NEGATIVE (NEGATIVE) Urine Bilirubin SMALL H (NEGATIVE) Urine Urobilinogen 1.0 (<2.0) EU/dL Ur Leukocyte Esterase LARGE H (NEGATIVE) Urine RBC 5-10 (0-2/HPF) Urine WBC 10-20 (0-5/HPF) Ur Epithelial Cells MANY (NONE-FEW) Urine Bacteria 3+ H (NEGATIVE) Urine Mucus LIGHT (NONE-MOD) SARS-CoV-2 RNA (FELIPE) NEGATIVE (NEGATIVE) Meds: Medications Discontinued Medications Generic Name Dose Route Start Last Admin Trade Name Freq PRN Reason Stop Dose Admin Acetaminophen 650 mg 02/17/20 02:30 Tylenol PO Q4H PRN Pain (Mild 1-3)/fever Dextrose/Water 50 ml 02/17/20 02:21 Dextrose 50% In Water IV ASDIRECTED PRN Hypoglycemia Digoxin 250 mcg 02/18/20 09:00 02/18/20 08:26 Lanoxin PO 250 mcg DAILY [facility] Administration Digoxin 250 mcg 02/22/20 09:00 Lanoxin PO TuThSa@0900 [facility] Digoxin 125 mcg 02/21/20 09:00 Lanoxin PO SuMoWeFr@0900 [facility] Duloxetine HCl 60 mg 02/18/20 09:00 02/20/20 08:50 Cymbalta PO 60 mg DAILY [facility] Administration Fluconazole 100 mg 02/17/20 02:17 02/17/20 05:36 Diflucan PO 02/17/20 02:18 100 mg ONETIME ONE Administration Fluconazole 100 mg 02/17/20 05:15 02/17/20 05:38 Diflucan PO 02/17/20 05:16 Not Given ONETIME ONE Gabapentin 300 mg 02/17/20 22:00 02/20/20 06:27 Neurontin PO 300 mg TID [facility] Administration Glucagon 1 mg 02/17/20 02:21 Glucagen IM ASDIRECTED PRN Hypoglycemia Levofloxacin/Dextrose 750 mg/ 150 mls @ 100 mls/hr 02/17/20 02:30 02/19/20 01:30 Premix IV 100 mls/hr Q24H [facility] Administration Insulin Aspart 0 unit 02/17/20 07:30 02/20/20 13:03 Novolog SUBCUT 1 unit TIDAC [facility] Administration Protocol Levofloxacin 750 mg 02/20/20 06:00 02/20/20 06:27 Levaquin PO 750 mg Q24H [facility] Administration Metoprolol Succinate 100 mg 02/17/20 21:00 02/19/20 21:06 Toprol Xl PO 100 mg BEDTIME [facility] Administration Morphine Sulfate 2 mg 02/17/20 16:18 02/19/20 21:08 Morphine IVPUSH 2 mg Q4H PRN Administration Pain Morphine Sulfate 1 mg 02/17/20 18:16 02/17/20 20:08 Morphine IVPUSH 02/17/20 18:17 Not Given ONETIME ONE Nystatin 1 gm 02/17/20 06:00 02/20/20 06:27 Nystop TOP 1 gm TID [facility] Administration Sodium Chloride 2.5 ml 02/16/20 20:01 02/16/20 21:08 Saline Flush FLUSH 2.5 ml ASDIRECTED PRN Administration Keep Vein Open Sodium Chloride 10 ml 02/16/20 20:01 02/16/20 21:08 Saline Flush FLUSH 10 ml ASDIRECTED PRN Administration Keep Vein Open Warfarin Sodium 1 each 02/17/20 16:15 02/20/20 11:22 Coumadin Ask PO Not Given DAILY [facility] Warfarin Sodium 3 mg 02/20/20 14:00 02/20/20 13:04 Coumadin PO 02/20/20 14:01 3 mg DAILY@1400 ONE Administration Departure - Departure Time of Disposition: 10:18 Disposition: Admitted As Inpatient 65 Clinical Impression: Total self-care deficit, Generalized weakness, Hypocalcemia, Candidal dermatitis Urinary tract infection Qualifiers: Urinary tract infection type: acute cystitis Hematuria presence: without hematuria Qualified Code(s): N30.00 - Acute cystitis without hematuria - Discharge Information Sepsis Event Note (ED) - Evaluation Sepsis Screening Result: No Definite Risk
--- NOTE | 2020-02-16 21:24 | PCM.SN.2 ---
- Free Text/Narrative Note: Heart rate = 74 bpm, atrial fibrillation, normal QRS interval, no STEMI. EKG and rhythm strip interpreted by me at 2005
--- NOTE | 2020-02-16 22:38 | CR ---
INDICATION: Pain, shortness of breath. TECHNIQUE: Chest 1 view COMPARISON: Chest radiograph 12/18/2015. FINDINGS: New abnormal rounded contour along the right heart border could be related to patient rotation but is indeterminate. No focal consolidation, pleural effusion, or pneumothorax. Normal pulmonary vascularity. Removal of the previously seen right-sided Port-A-Cath. Degenerative changes of the shoulders. IMPRESSION: New abnormal rounded contour along the right heart border could be related to patient rotation but is indeterminate. Consider further evaluation with CT of the chest. Dictated by Shari Sarabia MD @ Feb 16 2020 10:34PM Signed by Dr. Shari Sarabia @ Feb 16 2020 10:37PM
[2020-02-17] MEDS ORDERED: Fluconazole 100 MG Tab PO ONE ×2 (02:17→05:15)
[2020-02-17] MEDS ORDERED: 50% Dextrose in Water 50 ML Syringe IV PRN (02:21)
[2020-02-17] MEDS ORDERED: Glucagon,Human Recombinant 1 MG Vial IM PRN (02:21)
[2020-02-17] MEDS ORDERED: Acetaminophen 325 MG Tab PO PRN (02:30)
--- NOTE | 2020-02-17 02:38 | PCM.HP.2 ---
H&P History of Present Illness - General Date of Service: 02/17/20 Admit Problem/Dx: Admission Diagnosis/Problem Admission Diagnosis/Problem Debility - History of Present Illness Initial Comments - Free Text/Narative: Patient is a 69 y/o F with PMH of Afib, High cholesterol, Hypertension, Pulmonary hypertension, CHF with preserved EF, DM, OA, obesity, gout, who presented with generalized weakness. Patient was admitted last month due to fluid overload with lower leg edema which was limiting her mobility. She has since lost 40 lbs due to continued diuresis. She has not taking a shower or a bath since discharge as she does not feel safe doing this alone at her house. When she sat on the toilet today she was unable to get herself up and had to call family. Body Pain Score (Numeric/FACES): 4 - Related Data Allergies/Adverse Reactions: Allergies Allergy/AdvReac Type Severity Reaction Status Date / Time lorazepam [From Ativan] Allergy Hallucinati Verified 02/16/20 19:49 ons Home Medications: Home Meds DULoxetine [Cymbalta] 60 mg PO DAILY 05/16/14 [History] Digoxin 125 mcg PO TUTHSA 05/16/14 [History] Digoxin 250 mcg PO SUMOWEFR 05/16/14 [History] Enalapril [Vasotec] 5 mg PO DAILY 05/16/14 [History] Metoprolol Succinate [Toprol Xl] 100 mg PO BEDTIME 05/16/14 [History] metFORMIN [Glucophage] 1,000 mg PO BIDM 05/16/14 [History] Insulin Aspart [Novolog Flexpen] 17 unit SQ ACLUNCH 09/30/15 [History] Insulin Glarg,Human.Rec.Analog [Lantus Solostar] 32 unit SUBCUT BEDTIME 09/30/15 [History] Insulin Aspart [Novolog Flexpen] 23 units SQ ACDINNER 12/16/15 [History] Acetaminophen/Codeine [Tylenol with Codeine No.3 300MG/30MG] 1 tab PO Q4H PRN 01/19/20 [History] Gabapentin [Neurontin] 300 mg PO TID 01/19/20 [History] Warfarin [Coumadin] 1.5 mg PO SUTUTHSA@1400 01/19/20 [History] Warfarin [Coumadin] 3 mg PO MOWEFR@01/18/20 [History] Ciprofloxacin [Ciprofloxacin HCl] 500 mg PO BID #5 tab 01/22/20 [Rx] Furosemide [Lasix] 20 mg PO DAILY #30 tablet 01/22/20 [Rx] Past Medical History HEENT History: Reports: Impaired Vision Other HEENT History: wearas glasses Cardiovascular History: Reports: Afib, High Cholesterol, Hypertension, Pulmonary Hypertension Other Cardiovascular History: hx intermittent afib Respiratory History: Reports: None Gastrointestinal History: Reports: None Genitourinary History: Reports: None, Other (See Below) TERADATA ARCHITECT History: Reports: None Musculoskeletal History: Reports: Arthritis, Gout Neurological History: Reports: None Psychiatric History: Reports: Anxiety, Depression, Other (See Below) Endocrine/Metabolic History: Reports: Diabetes, Type II, Obesity/BMI 30+ Hematologic History: Reports: None Immunologic History: Reports: None Oncologic (Cancer) History: Reports: Uterine Dermatologic History: Reports: Psoriasis Other Dermatologic History: on face - Infectious Disease History Infectious Disease History: Reports: None - Past Surgical History Head Surgeries/Procedures: Reports: None Neurological Surgical History: Reports: Spinal Fusion Musculoskeletal Surgical History: Reports: Other (See Below) Oncologic Surgical History: Reports: Other (See Below) Social & Family History - Family History HEENT: Reports: None Musculoskeletal: Reports: Arthritis Neurological: Reports: CVA - Tobacco Use Tobacco Use Status *Q: Never Tobacco User - Caffeine Use Caffeine Use: Reports: None - Recreational Drug Use Recreational Drug Use: No H&P Review of Systems - Review of Systems: Review Of Systems: Comprehensive ROS is negative, except as noted in HPI. Exam - Exam Exam: See Below - Vital Signs Vital Signs: Last Vital Signs Temp Pulse 68 02/16/20 22:12 Resp 20 02/16/20 22:12 BP 107/51 L 02/16/20 22:12 Pulse Ox 96 02/16/20 22:12 Weight: 104.326 kg - Exam General: Alert, Oriented HEENT: Mucosa Moist & [place] Neck: Supple Lungs: Clear to Auscultation, Normal Respiratory Effort Cardiovascular: Regular Rate, Regular Rhythm GI/Abdominal Exam: Normal Bowel Sounds, Soft, Non-Tender Rectal (Female) Exam: Other (multiple echemosis and small blisters on proximal posterior thigh and buttock) Extremities: Non-Tender, Other (multiple healing ulcers from prior edema, wrinkled skin and chronic venous stasus changes) Skin: Rash (erythematous rash inbetween panus ) - Patient Data Lab Results Last 24 hrs: Laboratory Results - last 24 hr 02/16/20 02/16/20 02/16/20 Range/Units 19:50 19:58 19:58 WBC 8.37 (4.0-11.0) K/uL RBC 4.59 (4.30-5.90) M/uL Hgb 15.0 (12.0-16.0) g/dL Hct 48.8 H (36.0-46.0) % MCV 106.3 H (80.0-98.0) fL MCH 32.7 H (27.0-32.0) pg MCHC 30.7 L (31.0-37.0) g/dL RDW Std Deviation 65.4 H (28.0-62.0) fl RDW Coeff of Zaida 17 H (11.0-15.0) % Plt Count 188 (150-400) K/uL MPV 11.00 (7.40-12.00) fL Neut % (Auto) 79.0 (48.0-80.0) % Lymph % (Auto) 9.6 L (16.0-40.0) % [place] % (Auto) 10.2 (0.0-15.0) % Eos % (Auto) 0.7 (0.0-7.0) % Baso % (Auto) 0.5 (0.0-1.5) % Neut # (Auto) 6.6 H (1.4-5.7) K/uL Lymph # (Auto) 0.8 (0.6-2.4) K/uL [place] # (Auto) 0.9 H (0.0-0.8) K/uL Eos # (Auto) 0.1 (0.0-0.7) K/uL Baso # (Auto) 0.0 (0.0-0.1) K/uL Nucleated RBC % 0.0 /100WBC Nucleated RBCs # 0 K/uL Sodium 137 (136-145) mmol/L Potassium 4.8 (3.5-5.1) mmol/L Chloride 97 L (98-107) mmol/L Carbon Dioxide 29.9 (21.0-32.0) mmol/L BUN 25 H (7.0-18.0) mg/dL Creatinine 1.1 H (0.6-1.0) mg/dL Est Cr Clr Drug Dosing 44.55 mL/min Estimated GFR (MDRD) 49.1 ml/min Glucose 201 H (74-106) mg/dL Calcium 8.0 L (8.5-10.1) mg/dL Total Bilirubin 1.4 H (0.2-1.0) mg/dL AST 19 (15-37) IU/L ALT 9 L (14-63) IU/L Alkaline Phosphatase 122 H (46-116) U/L Creatine Kinase 51 (26-308) U/L Troponin I < 0.050 (0.000-0.056) ng/mL Total Protein 7.0 (6.4-8.2) g/dL Albumin 2.9 L (3.4-5.0) g/dL Globulin 4.1 H (2.6-4.0) g/dL Albumin/Globulin Ratio 0.7 L (0.9-1.6) Lipase 45 L (73-393) U/L Urine Color Urine Appearance Urine pH (5.0-8.0) Ur Specific [place] (1.001-1.035) Urine Protein (NEGATIVE) mg/dL Urine Glucose (UA) (NEGATIVE) mg/dL Urine Ketones (NEGATIVE) mg/dL Urine Occult Blood (NEGATIVE) Urine Nitrite (NEGATIVE) Urine Bilirubin (NEGATIVE) Urine Urobilinogen (<2.0) EU/dL Ur Leukocyte Esterase (NEGATIVE) Urine RBC (0-2/HPF) Urine WBC (0-5/HPF) Ur Epithelial Cells (NONE-FEW) Urine Bacteria (NEGATIVE) Urine Mucus (NONE-MOD) SARS-CoV-2 RNA (FELIPE) (NEGATIVE) 02/16/20 02/16/20 Range/Units 21:15 23:00 WBC (4.0-11.0) K/uL RBC (4.30-5.90) M/uL Hgb (12.0-16.0) g/dL Hct (36.0-46.0) % MCV (80.0-98.0) fL MCH (27.0-32.0) pg MCHC (31.0-37.0) g/dL RDW Std Deviation (28.0-62.0) fl RDW Coeff of Za[place] (11.0-15.0) % Plt Count (150-400) K/uL MPV (7.40-12.00) fL Neut % (Auto) (48.0-80.0) % Lymph % (Auto) (16.0-40.0) % [place] % (Auto) (0.0-15.0) % Eos % (Auto) (0.0-7.0) % Baso % (Auto) (0.0-1.5) % Neut # (Auto) (1.4-5.7) K/uL Lymph # (Auto) (0.6-2.4) K/uL [place] # (Auto) (0.0-0.8) K/uL Eos # (Auto) (0.0-0.7) K/uL Baso # (Auto) (0.0-0.1) K/uL Nucleated RBC % /100WBC Nucleated RBCs # K/uL Sodium (136-145) mmol/L Potassium (3.5-5.1) mmol/L Chloride (98-107) mmol/L Carbon Dioxide (21.0-32.0) mmol/L BUN (7.0-18.0) mg/dL Creatinine (0.6-1.0) mg/dL Est Cr Clr Drug Dosing mL/min Estimated GFR (MDRD) ml/min Glucose (74-106) mg/dL Calcium (8.5-10.1) mg/dL Total Bilirubin (0.2-1.0) mg/dL AST (15-37) IU/L ALT (14-63) IU/L Alkaline Phosphatase (46-116) U/L Creatine Kinase (26-308) U/L Troponin I (0.000-0.056) ng/mL Total Protein (6.4-8.2) g/dL Albumin (3.4-5.0) g/dL Globulin (2.6-4.0) g/dL Albumin/Globulin Ratio (0.9-1.6) Lipase (73-393) U/L Urine Color YELLOW Urine Appearance CLOUDY Urine pH 6.0 (5.0-8.0) Ur Specific [place] 1.020 (1.001-1.035) Urine Protein NEGATIVE (NEGATIVE) mg/dL Urine Glucose (UA) NEGATIVE (NEGATIVE) mg/dL Urine Ketones 15 H (NEGATIVE) mg/dL Urine Occult Blood MODERATE H (NEGATIVE) Urine Nitrite NEGATIVE (NEGATIVE) Urine Bilirubin SMALL H (NEGATIVE) Urine Urobilinogen 1.0 (<2.0) EU/dL Ur Leukocyte Esterase LARGE H (NEGATIVE) Urine RBC 5-10 (0-2/HPF) Urine WBC 10-20 (0-5/HPF) Ur Epithelial Cells MANY (NONE-FEW) Urine Bacteria 3+ H (NEGATIVE) Urine Mucus LIGHT (NONE-MOD) SARS-CoV-2 RNA (FELIPE) NEGATIVE (NEGATIVE) Result Diagrams: 02/17/20 05:50 02/17/20 05:50 Sepsis Event Note - Evaluation Sepsis Screening Result: No Definite Risk - Focused Exam Vital Signs: Vital Signs Pulse Resp BP Pulse Ox 02/16/20 22:12 68 20 107/51 L 96 02/16/20 21:15 71 20 119/64 97 02/16/20 19:49 87 18 130/82 93 L Problem List Initiated/Reviewed/Updated: Yes Orders Last 24hrs: Active Orders 24 hr Category Date Time Status Admission Status [Patient Status] [ADT] Stat ADT 02/16/20 23:02 Active Antiembolic Devices [RC] PER UNIT ROUTINE Care 02/17/20 02:31 Active Blood Glucose Check, Bedside [RC] TIDAC Care 02/17/20 02:21 Active Cardiac Monitoring [RC] . DIRECTED Care 02/16/20 20:01 Active EKG Documentation Completion [RC] STAT Care 02/16/20 20:02 Active Oxygen Therapy [RC] PRN Care 02/17/20 02:30 Active VTE/DVT Education [RC] PER UNIT ROUTINE Care 02/17/20 02:30 Active Vital Signs [RC] Q4H Care 02/17/20 02:30 Active Consult to Case Management/Wireless Communications Engineer [CONS] Cons 02/17/20 02:30 Active Routine PT Evaluation and Treatment [CONS] Routine Cons 02/17/20 02:30 Active [employer] Diet [DIET] Diet 02/17/20 Breakfast Active BASIC METABOLIC PANEL,BMP [CHEM] AM Lab 02/17/20 05:11 Ordered CBC WITH AUTO DIFF [HEME] AM Lab 02/17/20 05:11 Ordered CULTURE URINE [RM] Stat Lab 02/16/20 23:00 Received INR,PT,PROTHROMBIN TIME [COAG] AM Lab 02/17/20 05:11 Ordered Acetaminophen [TylenoL] Med 02/17/20 02:30 Ordered 650 mg PO Q4H PRN Dextrose 50% in Water Med 02/17/20 02:21 Active 50 ml IV ASDIRECTED PRN Glucagon,Human Recombinant [GlucaGen] Med 02/17/20 02:21 Active 1 mg IM ASDIRECTED PRN Insulin Aspart [NovoLOG] Med 02/17/20 07:30 Active See Protocol SUBCUT TIDAC Levofloxacin/Dextrose 5%-Water [Levaquin in D5W 750 MG/ Med 02/17/20 02:30 Active 150 ML] 750 mg Premix Bag 1 bag IV Q24H Nystatin [Nystop] Med 02/17/20 06:00 Active 1 gm TOP TID Sodium Chloride 0.9% [Saline Flush] Med 02/16/20 20:01 Active 10 ml FLUSH ASDIRECTED PRN Sodium Chloride 0.9% [Saline Flush] Med 02/16/20 20:01 Active 2.5 ml FLUSH ASDIRECTED PRN Saline Lock Insert [OM.PC] Stat Oth 02/16/20 20:01 Ordered Sequential Compression Device [OM.PC] Per Unit Routine Oth 02/17/20 02:30 Ordered Resuscitation Status Routine Resus Stat 02/17/20 02:30 Ordered Medication Orders Acetaminophen (Tylenol) 650 mg PO Q4H PRN PRN Reason: Pain (Mild 1-3)/fever Dextrose/Water (Dextrose 50% In Water) 50 ml IV ASDIRECTED PRN PRN Reason: Hypoglycemia Glucagon (Glucagen) 1 mg IM ASDIRECTED PRN PRN Reason: Hypoglycemia Levofloxacin/Dextrose 750 mg/ (Premix) 150 mls @ 100 mls/hr IV Q24H FORREST Insulin Aspart (Novolog) 0 unit SUBCUT TIDAC FORREST; Protocol Nystatin (Nystop) 1 gm TOP TID FORREST Sodium Chloride (Saline Flush) 2.5 ml FLUSH ASDIRECTED PRN PRN Reason: Keep Vein Open Last Admin: 02/16/20 21:08 Dose: 2.5 ml Documented by: ARANANG Sodium Chloride (Saline Flush) 10 ml FLUSH ASDIRECTED PRN PRN Reason: Keep Vein Open Last Admin: 02/16/20 21:08 Dose: 10 ml Documented by: FLORENCIA Assessment/Plan Comment:: 69 yo female admitted for general debility as she is unable to transferr without two assist. She is found to have a UTI. We will treat with Levaquin. Will give diflucan and nystatin powder for candidal rash on abdomen
[2020-02-17] MEDS: Levofloxacin/Dextrose 5%-Water 750 MG in Premix Bag 1 BAG IV SCH (05:35)
[2020-02-17] MEDS: Nystatin Topical Powder 15 GM Bottle TOP SCH ×3 (05:36→21:57)
[2020-02-17 06:42] LABS: CARBON DIOXIDE,CO2 33.2 mmol/L (21.0-32.0); POTASSIUM,K 4.9 mmol/L (3.5-5.1)
[2020-02-17] MEDS: Insulin Aspart 100 Units/ML 3 ML Pen SUBCUT SCH ×3 (07:42→17:30)
--- NOTE | 2020-02-17 16:24 | PCM.PN ---
- General Info Date of Service: 02/17/20 - Review of Systems Systems Review Comment:: patient feels fatigue, no abdominal pain, no fevers. - Patient Data Vitals - Most Recent: Last Vital Signs Temp 36.9 C 02/17/20 08:00 Pulse 75 02/17/20 08:00 Resp 18 02/17/20 08:00 BP 123/48 L 02/17/20 08:00 Pulse Ox 94 L 02/17/20 08:00 Weight - Most Recent: 104.326 kg I&O - Last 24 Hours: Intake & Output 02/17/20 02/17/20 02/17/20 06:59 14:59 22:59 Intake Total 150 Balance 150 Lab Results Last 24 Hours: Laboratory Results - last 24 hr 02/16/20 02/16/20 02/16/20 Range/Units 19:50 19:58 19:58 WBC 8.37 (4.0-11.0) K/uL RBC 4.59 (4.30-5.90) M/uL Hgb 15.0 (12.0-16.0) g/dL Hct 48.8 H (36.0-46.0) % MCV 106.3 H (80.0-98.0) fL MCH 32.7 H (27.0-32.0) pg MCHC 30.7 L (31.0-37.0) g/dL RDW Std Deviation 65.4 H (28.0-62.0) fl RDW Coeff of Zaida 17 H (11.0-15.0) % Plt Count 188 (150-400) K/uL MPV 11.00 (7.40-12.00) fL Neut % (Auto) 79.0 (48.0-80.0) % Lymph % (Auto) 9.6 L (16.0-40.0) % [place] % (Auto) 10.2 (0.0-15.0) % Eos % (Auto) 0.7 (0.0-7.0) % Baso % (Auto) 0.5 (0.0-1.5) % Neut # (Auto) 6.6 H (1.4-5.7) K/uL Lymph # (Auto) 0.8 (0.6-2.4) K/uL [place] # (Auto) 0.9 H (0.0-0.8) K/uL Eos # (Auto) 0.1 (0.0-0.7) K/uL Baso # (Auto) 0.0 (0.0-0.1) K/uL Nucleated RBC % 0.0 /100WBC Nucleated RBCs # 0 K/uL INR Sodium 137 (136-145) mmol/L Potassium 4.8 (3.5-5.1) mmol/L Chloride 97 L (98-107) mmol/L Carbon Dioxide 29.9 (21.0-32.0) mmol/L BUN 25 H (7.0-18.0) mg/dL Creatinine 1.1 H (0.6-1.0) mg/dL Est Cr Clr Drug Dosing 44.55 mL/min Estimated GFR (MDRD) 49.1 ml/min Glucose 201 H (74-106) mg/dL POC Glucose (60-110) mg/dL Calcium 8.0 L (8.5-10.1) mg/dL Total Bilirubin 1.4 H (0.2-1.0) mg/dL AST 19 (15-37) IU/L ALT 9 L (14-63) IU/L Alkaline Phosphatase 122 H (46-116) U/L Creatine Kinase 51 (26-308) U/L Troponin I < 0.050 (0.000-0.056) ng/mL Total Protein 7.0 (6.4-8.2) g/dL Albumin 2.9 L (3.4-5.0) g/dL Globulin 4.1 H (2.6-4.0) g/dL Albumin/Globulin Ratio 0.7 L (0.9-1.6) Lipase 45 L (73-393) U/L Urine Color Urine Appearance Urine pH (5.0-8.0) Ur Specific [place] (1.001-1.035) Urine Protein (NEGATIVE) mg/dL Urine Glucose (UA) (NEGATIVE) mg/dL Urine Ketones (NEGATIVE) mg/dL Urine Occult Blood (NEGATIVE) Urine Nitrite (NEGATIVE) Urine Bilirubin (NEGATIVE) Urine Urobilinogen (<2.0) EU/dL Ur Leukocyte Esterase (NEGATIVE) Urine RBC (0-2/HPF) Urine WBC (0-5/HPF) Ur Epithelial Cells (NONE-FEW) Urine Bacteria (NEGATIVE) Urine Mucus (NONE-MOD) SARS-CoV-2 RNA (FELIPE) (NEGATIVE) 02/16/20 02/16/20 02/17/20 Range/Units 21:15 23:00 05:50 WBC (4.0-11.0) K/uL RBC (4.30-5.90) M/uL Hgb (12.0-16.0) g/dL Hct (36.0-46.0) % MCV (80.0-98.0) fL MCH (27.0-32.0) pg MCHC (31.0-37.0) g/dL RDW Std Deviation (28.0-62.0) fl RDW Coeff of Za[place] (11.0-15.0) % Plt Count (150-400) K/uL MPV (7.40-12.00) fL Neut % (Auto) (48.0-80.0) % Lymph % (Auto) (16.0-40.0) % [place] % (Auto) (0.0-15.0) % Eos % (Auto) (0.0-7.0) % Baso % (Auto) (0.0-1.5) % Neut # (Auto) (1.4-5.7) K/uL Lymph # (Auto) (0.6-2.4) K/uL [place] # (Auto) (0.0-0.8) K/uL Eos # (Auto) (0.0-0.7) K/uL Baso # (Auto) (0.0-0.1) K/uL Nucleated RBC % /100WBC Nucleated RBCs # K/uL INR 3.39 Sodium (136-145) mmol/L Potassium (3.5-5.1) mmol/L Chloride (98-107) mmol/L Carbon Dioxide (21.0-32.0) mmol/L BUN (7.0-18.0) mg/dL Creatinine (0.6-1.0) mg/dL Est Cr Clr Drug Dosing mL/min Estimated GFR (MDRD) ml/min Glucose (74-106) mg/dL POC Glucose (60-110) mg/dL Calcium (8.5-10.1) mg/dL Total Bilirubin (0.2-1.0) mg/dL AST (15-37) IU/L ALT (14-63) IU/L Alkaline Phosphatase (46-116) U/L Creatine Kinase (26-308) U/L Troponin I (0.000-0.056) ng/mL Total Protein (6.4-8.2) g/dL Albumin (3.4-5.0) g/dL Globulin (2.6-4.0) g/dL Albumin/Globulin Ratio (0.9-1.6) Lipase (73-393) U/L Urine Color YELLOW Urine Appearance CLOUDY Urine pH 6.0 (5.0-8.0) Ur Specific [place] 1.020 (1.001-1.035) Urine Protein NEGATIVE (NEGATIVE) mg/dL Urine Glucose (UA) NEGATIVE (NEGATIVE) mg/dL Urine Ketones 15 H (NEGATIVE) mg/dL Urine Occult Blood MODERATE H (NEGATIVE) Urine Nitrite NEGATIVE (NEGATIVE) Urine Bilirubin SMALL H (NEGATIVE) Urine Urobilinogen 1.0 (<2.0) EU/dL Ur Leukocyte Esterase LARGE H (NEGATIVE) Urine RBC 5-10 (0-2/HPF) Urine WBC 10-20 (0-5/HPF) Ur Epithelial Cells MANY (NONE-FEW) Urine Bacteria 3+ H (NEGATIVE) Urine Mucus LIGHT (NONE-MOD) SARS-CoV-2 RNA (FELIPE) NEGATIVE (NEGATIVE) 02/17/20 02/17/20 02/17/20 Range/Units 05:50 05:50 06:49 WBC 8.77 (4.0-11.0) K/uL RBC 4.25 L (4.30-5.90) M/uL Hgb 14.0 (12.0-16.0) g/dL Hct 45.2 (36.0-46.0) % MCV 106.4 H (80.0-98.0) fL MCH 32.9 H (27.0-32.0) pg MCHC 31.0 (31.0-37.0) g/dL RDW Std Deviation 65.7 H (28.0-62.0) fl RDW Coeff of Zaida 17 H (11.0-15.0) % Plt Count 202 (150-400) K/uL MPV 11.50 (7.40-12.00) fL Neut % (Auto) 80.1 H (48.0-80.0) % Lymph % (Auto) 9.0 L (16.0-40.0) % [place] % (Auto) 10.1 (0.0-15.0) % Eos % (Auto) 0.6 (0.0-7.0) % Baso % (Auto) 0.2 (0.0-1.5) % Neut # (Auto) 7.0 H (1.4-5.7) K/uL Lymph # (Auto) 0.8 (0.6-2.4) K/uL [place] # (Auto) 0.9 H (0.0-0.8) K/uL Eos # (Auto) 0.1 (0.0-0.7) K/uL Baso # (Auto) 0.0 (0.0-0.1) K/uL Nucleated RBC % 0.0 /100WBC Nucleated RBCs # 0 K/uL INR Sodium 138 (136-145) mmol/L Potassium 4.9 (3.5-5.1) mmol/L Chloride 99 (98-107) mmol/L Carbon Dioxide 33.2 H (21.0-32.0) mmol/L BUN 22 H (7.0-18.0) mg/dL Creatinine 1.0 (0.6-1.0) mg/dL Est Cr Clr Drug Dosing 49.00 mL/min Estimated GFR (MDRD) 54.8 ml/min Glucose 144 H (74-106) mg/dL POC Glucose 137 H (60-110) mg/dL Calcium 7.8 L (8.5-10.1) mg/dL Total Bilirubin (0.2-1.0) mg/dL AST (15-37) IU/L ALT (14-63) IU/L Alkaline Phosphatase (46-116) U/L Creatine Kinase (26-308) U/L Troponin I (0.000-0.056) ng/mL Total Protein (6.4-8.2) g/dL Albumin (3.4-5.0) g/dL Globulin (2.6-4.0) g/dL Albumin/Globulin Ratio (0.9-1.6) Lipase (73-393) U/L Urine Color Urine Appearance Urine pH (5.0-8.0) Ur Specific [place] (1.001-1.035) Urine Protein (NEGATIVE) mg/dL Urine Glucose (UA) (NEGATIVE) mg/dL Urine Ketones (NEGATIVE) mg/dL Urine Occult Blood (NEGATIVE) Urine Nitrite (NEGATIVE) Urine Bilirubin (NEGATIVE) Urine Urobilinogen (<2.0) EU/dL Ur Leukocyte Esterase (NEGATIVE) Urine RBC (0-2/HPF) Urine WBC (0-5/HPF) Ur Epithelial Cells (NONE-FEW) Urine Bacteria (NEGATIVE) Urine Mucus (NONE-MOD) SARS-CoV-2 RNA (FELIPE) (NEGATIVE) 02/17/20 Range/Units 12:50 WBC (4.0-11.0) K/uL RBC (4.30-5.90) M/uL Hgb (12.0-16.0) g/dL Hct (36.0-46.0) % MCV (80.0-98.0) fL MCH (27.0-32.0) pg MCHC (31.0-37.0) g/dL RDW Std Deviation (28.0-62.0) fl RDW Coeff of Za[place] (11.0-15.0) % Plt Count (150-400) K/uL MPV (7.40-12.00) fL Neut % (Auto) (48.0-80.0) % Lymph % (Auto) (16.0-40.0) % [place] % (Auto) (0.0-15.0) % Eos % (Auto) (0.0-7.0) % Baso % (Auto) (0.0-1.5) % Neut # (Auto) (1.4-5.7) K/uL Lymph # (Auto) (0.6-2.4) K/uL [place] # (Auto) (0.0-0.8) K/uL Eos # (Auto) (0.0-0.7) K/uL Baso # (Auto) (0.0-0.1) K/uL Nucleated RBC % /100WBC Nucleated RBCs # K/uL INR Sodium (136-145) mmol/L Potassium (3.5-5.1) mmol/L Chloride (98-107) mmol/L Carbon Dioxide (21.0-32.0) mmol/L BUN (7.0-18.0) mg/dL Creatinine (0.6-1.0) mg/dL Est Cr Clr Drug Dosing mL/min Estimated GFR (MDRD) ml/min Glucose (74-106) mg/dL POC Glucose 134 H (60-110) mg/dL Calcium (8.5-10.1) mg/dL Total Bilirubin (0.2-1.0) mg/dL AST (15-37) IU/L ALT (14-63) IU/L Alkaline Phosphatase (46-116) U/L Creatine Kinase (26-308) U/L Troponin I (0.000-0.056) ng/mL Total Protein (6.4-8.2) g/dL Albumin (3.4-5.0) g/dL Globulin (2.6-4.0) g/dL Albumin/Globulin Ratio (0.9-1.6) Lipase (73-393) U/L Urine Color Urine Appearance Urine pH (5.0-8.0) Ur Specific [place] (1.001-1.035) Urine Protein (NEGATIVE) mg/dL Urine Glucose (UA) (NEGATIVE) mg/dL Urine Ketones (NEGATIVE) mg/dL Urine Occult Blood (NEGATIVE) Urine Nitrite (NEGATIVE) Urine Bilirubin (NEGATIVE) Urine Urobilinogen (<2.0) EU/dL Ur Leukocyte Esterase (NEGATIVE) Urine RBC (0-2/HPF) Urine WBC (0-5/HPF) Ur Epithelial Cells (NONE-FEW) Urine Bacteria (NEGATIVE) Urine Mucus (NONE-MOD) SARS-CoV-2 RNA (FELIPE) (NEGATIVE) Med Orders - Current: Current Medications Acetaminophen (Tylenol) 650 mg PO Q4H PRN PRN Reason: Pain (Mild 1-3)/fever Dextrose/Water (Dextrose 50% In Water) 50 ml IV ASDIRECTED PRN PRN Reason: Hypoglycemia Digoxin (Lanoxin) 250 mcg PO DAILY [facility] Duloxetine HCl (Cymbalta) 60 mg PO DAILY [facility] Gabapentin (Neurontin) 300 mg PO TID [facility] Glucagon (Glucagen) 1 mg IM ASDIRECTED PRN PRN Reason: Hypoglycemia Levofloxacin/Dextrose 750 mg/ (Premix) 150 mls @ 100 mls/hr IV Q24H [facility] Last Admin: 02/17/20 05:35 Dose: 100 mls/hr Documented by: Insulin Aspart (Novolog) 0 unit SUBCUT TIDAC FORREST; Protocol Last Admin: 02/17/20 12:50 Dose: Not Given Documented by: Metoprolol Succinate (Toprol Xl) 100 mg PO BEDTIME FORREST Morphine Sulfate (Morphine) 2 mg IVPUSH Q4H PRN PRN Reason: Pain Nystatin (Nystop) 1 gm TOP TID FORREST Last Admin: 02/17/20 14:30 Dose: 1 gm Documented by: Sodium Chloride (Saline Flush) 2.5 ml FLUSH ASDIRECTED PRN PRN Reason: Keep Vein Open Last Admin: 02/16/20 21:08 Dose: 2.5 ml Documented by: Sodium Chloride (Saline Flush) 10 ml FLUSH ASDIRECTED PRN PRN Reason: Keep Vein Open Last Admin: 02/16/20 21:08 Dose: 10 ml Documented by: Warfarin Sodium (Coumadin Ask) 1 each PO DAILY [facility] Discontinued Medications Fluconazole (Diflucan) 100 mg PO ONETIME ONE Stop: 02/17/20 02:18 Last Admin: 02/17/20 05:36 Dose: 100 mg Documented by: Fluconazole (Diflucan) 100 mg PO ONETIME ONE Stop: 02/17/20 05:16 Last Admin: 02/17/20 05:38 Dose: Not Given Documented by: - Exam General: Alert, Oriented Neck: Supple Lungs: Clear to Auscultation, Normal Respiratory Effort Cardiovascular: Regular Rate, Regular Rhythm GI/Abdominal Exam: Normal Bowel Sounds, Soft, Non-Tender Extremities: Non-Tender, No Pedal Edema Sepsis Event Note - Evaluation Sepsis Screening Result: No Definite Risk - Focused Exam Vital Signs: Vital Signs Temp Pulse Resp BP Pulse Ox 02/17/20 08:00 36.9 C 75 18 123/48 L 94 L - Problem List Review Problem List Initiated/Reviewed/Updated: Yes - My Orders Last 24 Hours: My Active Orders 02/17/20 02:21 Dextrose 50% in Water 50 ml IV ASDIRECTED PRN Glucagon,Human Recombinant [GlucaGen] 1 mg IM ASDIRECTED PRN 02/17/20 02:30 Oxygen Therapy [RC] PRN VTE/DVT Education [RC] PER UNIT ROUTINE Vital Signs [RC] Q4H Consult to Case Management/Research Analyst [CONS] Routine PT Evaluation and Treatment [CONS] Routine Acetaminophen [TylenoL] 650 mg PO Q4H PRN Levofloxacin/Dextrose 5%-Water [Levaquin in D5W 750 MG/150 ML] 750 mg Premix Bag 1 bag IV Q24H Sequential Compression Device [OM.PC] Per Unit Routine Resuscitation Status Routine 02/17/20 02:31 Antiembolic Devices [RC] PER UNIT ROUTINE 02/17/20 06:00 Nystatin [Nystop] 1 gm TOP TID 02/17/20 Breakfast [employer] [place] [employer] Diet [DIET] 02/17/20 07:30 Insulin Aspart [NovoLOG] See Protocol SUBCUT TIDAC 02/17/20 14:38 Bladder Scan [RC] ASDIRECTED Urinary Catheter Assessment [RC] ASDIRECTED 02/17/20 14:45 Insert Urinary Catheter [OM.PC] Q24H 02/17/20 16:15 Warfarin Dosing [Coumadin Ask] 1 each PO DAILY 02/17/20 16:16 DIGOXIN [CHEM] Routine 02/17/20 16:18 Morphine 2 mg IVPUSH Q4H PRN 02/17/20 21:00 Metoprolol Succinate [Toprol XL] 100 mg PO BEDTIME 02/17/20 22:00 Gabapentin [Neurontin] 300 mg PO TID 02/18/20 09:00 DULoxetine [Cymbalta] 60 mg PO DAILY Digoxin [Lanoxin] 250 mcg PO DAILY - Plan Plan:: 69 yo female admitted for general debility and UTI UTI: continue Levaquin PT consulted
[2020-02-17] MEDS: Morphine 2 MG/ML SYRINGE IVPUSH PRN ×2 (16:35→21:52)
[2020-02-17] MEDS ORDERED: Morphine 2 MG/ML SYRINGE IVPUSH ONE (18:16)
[2020-02-17] MEDS: Gabapentin 300 MG Cap PO SCH (21:51)
[2020-02-17] MEDS: Metoprolol Succinate 100 MG Tab.ER PO SCH (21:51)
[2020-02-18] MEDS: Levofloxacin/Dextrose 5%-Water 750 MG in Premix Bag 1 BAG IV SCH (01:31)
[2020-02-18] MEDS: Gabapentin 300 MG Cap PO SCH ×3 (05:03→21:00)
[2020-02-18] MEDS: Morphine 2 MG/ML SYRINGE IVPUSH PRN ×3 (05:04→20:45)
[2020-02-18] MEDS: Nystatin Topical Powder 15 GM Bottle TOP SCH ×3 (05:10→20:59)
[2020-02-18] MEDS: Insulin Aspart 100 Units/ML 3 ML Pen SUBCUT SCH ×3 (06:31→17:01)
[2020-02-18] MEDS: DULoxetine 60 MG Cap PO SCH (08:26)
[2020-02-18] MEDS ORDERED: Digoxin 250 MCG Tab PO SCH (09:00)
--- NOTE | 2020-02-18 12:03 | PCM.PN ---
- General Info Date of Service: 02/18/20 - Review of Systems Systems Review Comment:: reports feeling well, but has depressed mood - Patient Data Vitals - Most Recent: Last Vital Signs Temp 36.9 C 02/18/20 08:00 Pulse 79 02/18/20 08:26 Resp 18 02/18/20 08:00 BP 121/70 02/18/20 08:00 Pulse Ox 93 L 02/18/20 08:00 Weight - Most Recent: 104.326 kg I&O - Last 24 Hours: Intake & Output 02/17/20 02/18/20 02/18/20 22:59 06:59 14:59 Intake Total 500 Output Total 20 800 Balance -20 -300 Lab Results Last 24 Hours: Laboratory Results - last 24 hr 02/17/20 02/17/20 02/17/20 Range/Units 05:50 12:50 17:44 INR POC Glucose 134 H 139 H (60-110) mg/dL Digoxin 2.5 H (0.9-2.0) ng/mL 02/18/20 02/18/20 02/18/20 Range/Units 05:59 06:10 10:25 INR 4.62 POC Glucose 152 H 135 H (60-110) mg/dL Digoxin (0.9-2.0) ng/mL Med Orders - Current: Current Medications Acetaminophen (Tylenol) 650 mg PO Q4H PRN PRN Reason: Pain (Mild 1-3)/fever Dextrose/Water (Dextrose 50% In Water) 50 ml IV ASDIRECTED PRN PRN Reason: Hypoglycemia Digoxin (Lanoxin) 250 mcg PO DAILY [facility] Last Admin: 02/18/20 08:26 Dose: 250 mcg Documented by: Duloxetine HCl (Cymbalta) 60 mg PO DAILY [facility] Last Admin: 02/18/20 08:26 Dose: 60 mg Documented by: Gabapentin (Neurontin) 300 mg PO TID [facility] Last Admin: 02/18/20 05:03 Dose: 300 mg Documented by: Glucagon (Glucagen) 1 mg IM ASDIRECTED PRN PRN Reason: Hypoglycemia Levofloxacin/Dextrose 750 mg/ (Premix) 150 mls @ 100 mls/hr IV Q24H [facility] Last Admin: 02/18/20 01:31 Dose: 100 mls/hr Documented by: Insulin Aspart (Novolog) 0 unit SUBCUT TIDAC [facility]; Protocol Last Admin: 02/18/20 06:31 Dose: Not Given Documented by: Metoprolol Succinate (Toprol Xl) 100 mg PO BEDTIME [facility] Last Admin: 02/17/20 21:51 Dose: 100 mg Documented by: Morphine Sulfate (Morphine) 2 mg IVPUSH Q4H PRN PRN Reason: Pain Last Admin: 02/18/20 05:04 Dose: 2 mg Documented by: Nystatin (Nystop) 1 gm TOP TID [facility] Last Admin: 02/18/20 05:10 Dose: 1 gm Documented by: Sodium Chloride (Saline Flush) 2.5 ml FLUSH ASDIRECTED PRN PRN Reason: Keep Vein Open Last Admin: 02/16/20 21:08 Dose: 2.5 ml Documented by: Sodium Chloride (Saline Flush) 10 ml FLUSH ASDIRECTED PRN PRN Reason: Keep Vein Open Last Admin: 02/16/20 21:08 Dose: 10 ml Documented by: Warfarin Sodium (Coumadin Ask) 1 each PO DAILY [facility] Last Admin: 02/18/20 08:48 Dose: Not Given Documented by: Discontinued Medications Fluconazole (Diflucan) 100 mg PO ONETIME ONE Stop: 02/17/20 02:18 Last Admin: 02/17/20 05:36 Dose: 100 mg Documented by: Fluconazole (Diflucan) 100 mg PO ONETIME ONE Stop: 02/17/20 05:16 Last Admin: 02/17/20 05:38 Dose: Not Given Documented by: Morphine Sulfate (Morphine) 1 mg IVPUSH ONETIME ONE Stop: 02/17/20 18:17 Last Admin: 02/17/20 20:08 Dose: Not Given Documented by: - Exam General: Alert, Oriented Neck: Supple Lungs: Clear to Auscultation, Normal Respiratory Effort Cardiovascular: Regular Rate, Regular Rhythm GI/Abdominal Exam: Normal Bowel Sounds, Soft, Non-Tender Extremities: Non-Tender, Other (multiple healing ulcers) Sepsis Event Note - Evaluation Sepsis Screening Result: No Definite Risk - Focused Exam Vital Signs: Vital Signs Temp Pulse Pulse Resp BP Pulse Ox 02/18/20 08:26 79 02/18/20 08:00 36.9 C 79 18 121/70 93 L 02/18/20 04:20 36.6 C 85 16 117/56 L 93 L - Problem List Review Problem List Initiated/Reviewed/Updated: Yes - My Orders Last 24 Hours: My Active Orders 02/17/20 14:38 Bladder Scan [RC] ASDIRECTED Urinary Catheter Assessment [RC] Q4H 02/17/20 14:45 Insert Urinary Catheter [OM.PC] Q24H 02/17/20 16:15 Warfarin Dosing [Coumadin Ask] 1 each PO DAILY 02/17/20 16:18 Morphine 2 mg IVPUSH Q4H PRN 02/17/20 16:39 Consult to Physician [CONS] Routine 02/17/20 16:40 Notify Provider Consults [RC] ASDIRECTED 02/17/20 21:00 Metoprolol Succinate [Toprol XL] 100 mg PO BEDTIME 02/17/20 22:00 Gabapentin [Neurontin] 300 mg PO TID 02/18/20 09:00 DULoxetine [Cymbalta] 60 mg PO DAILY Digoxin [Lanoxin] 250 mcg PO DAILY - Plan Plan:: 69 yo female admitted for general debility and UTI UTI: on levaquin, lovett placed by Dr. Gtz as patient was unable to urinate yesterday despite multiple attempts. PT consulted Dispo: pending placement or improvement in mobility.
[2020-02-18] MEDS: Metoprolol Succinate 100 MG Tab.ER PO SCH (20:46)
[2020-02-19] MEDS: Levofloxacin/Dextrose 5%-Water 750 MG in Premix Bag 1 BAG IV SCH (01:30)
[2020-02-19] MEDS: Morphine 2 MG/ML SYRINGE IVPUSH PRN ×3 (02:06→21:08)
[2020-02-19] MEDS: Nystatin Topical Powder 15 GM Bottle TOP SCH ×3 (05:33→22:24)
[2020-02-19] MEDS: Gabapentin 300 MG Cap PO SCH ×3 (05:33→21:06)
[2020-02-19] MEDS: Insulin Aspart 100 Units/ML 3 ML Pen SUBCUT SCH ×3 (06:41→18:21)
[2020-02-19] MEDS: DULoxetine 60 MG Cap PO SCH (09:30)
--- NOTE | 2020-02-19 11:37 | PCM.PN ---
- General Info Date of Service: 02/19/20 - Review of Systems Systems Review Comment:: no pain, no fevers, reports fatigue and weakness - Patient Data Vitals - Most Recent: Last Vital Signs Temp 36.2 C 02/19/20 04:55 Pulse 80 02/19/20 04:55 Resp 14 02/19/20 04:55 BP 123/56 L 02/19/20 04:55 Pulse Ox 95 02/19/20 04:55 Weight - Most Recent: 104.326 kg I&O - Last 24 Hours: Intake & Output 02/18/20 02/19/20 02/19/20 22:59 06:59 14:59 Intake Total 400 500 Output Total 425 350 Balance -25 150 Lab Results Last 24 Hours: Laboratory Results - last 24 hr 02/18/20 02/19/20 02/19/20 Range/Units 16:45 05:30 06:04 INR 3.46 POC Glucose 195 H 119 H (60-110) mg/dL Hemanth Results Last 24 Hours: Microbiology 02/16/20 23:00 Urine Culture - Final Urine, Catheterized Escherichia Coli Normal Urogenital Ashly Med Orders - Current: Current Medications Acetaminophen (Tylenol) 650 mg PO Q4H PRN PRN Reason: Pain (Mild 1-3)/fever Dextrose/Water (Dextrose 50% In Water) 50 ml IV ASDIRECTED PRN PRN Reason: Hypoglycemia Digoxin (Lanoxin) 250 mcg PO DAILY [facility] Last Admin: 02/18/20 08:26 Dose: 250 mcg Documented by: Duloxetine HCl (Cymbalta) 60 mg PO DAILY [facility] Last Admin: 02/18/20 08:26 Dose: 60 mg Documented by: Gabapentin (Neurontin) 300 mg PO TID [facility] Last Admin: 02/19/20 05:33 Dose: 300 mg Documented by: Glucagon (Glucagen) 1 mg IM ASDIRECTED PRN PRN Reason: Hypoglycemia Levofloxacin/Dextrose 750 mg/ (Premix) 150 mls @ 100 mls/hr IV Q24H [facility] Last Admin: 02/19/20 01:30 Dose: 100 mls/hr Documented by: Insulin Aspart (Novolog) 0 unit SUBCUT TIDAC [facility]; Protocol Last Admin: 02/19/20 06:41 Dose: Not Given Documented by: Metoprolol Succinate (Toprol Xl) 100 mg PO BEDTIME [facility] Last Admin: 02/18/20 20:46 Dose: 100 mg Documented by: Morphine Sulfate (Morphine) 2 mg IVPUSH Q4H PRN PRN Reason: Pain Last Admin: 02/19/20 02:06 Dose: 2 mg Documented by: Nystatin (Nystop) 1 gm TOP TID [facility] Last Admin: 02/19/20 05:33 Dose: 1 gm Documented by: Sodium Chloride (Saline Flush) 2.5 ml FLUSH ASDIRECTED PRN PRN Reason: Keep Vein Open Last Admin: 02/16/20 21:08 Dose: 2.5 ml Documented by: Sodium Chloride (Saline Flush) 10 ml FLUSH ASDIRECTED PRN PRN Reason: Keep Vein Open Last Admin: 02/16/20 21:08 Dose: 10 ml Documented by: Warfarin Sodium (Coumadin Ask) 1 each PO DAILY [facility] Last Admin: 02/19/20 10:30 Dose: Not Given Documented by: Discontinued Medications Fluconazole (Diflucan) 100 mg PO ONETIME ONE Stop: 02/17/20 02:18 Last Admin: 02/17/20 05:36 Dose: 100 mg Documented by: Fluconazole (Diflucan) 100 mg PO ONETIME ONE Stop: 02/17/20 05:16 Last Admin: 02/17/20 05:38 Dose: Not Given Documented by: Morphine Sulfate (Morphine) 1 mg IVPUSH ONETIME ONE Stop: 02/17/20 18:17 Last Admin: 02/17/20 20:08 Dose: Not Given Documented by: - Exam General: Alert, Oriented Lungs: Clear to Auscultation, Normal Respiratory Effort Cardiovascular: Regular Rate, Regular Rhythm GI/Abdominal Exam: Normal Bowel Sounds, Soft, Non-Tender, No Distention Extremities: Non-Tender, No Pedal Edema, Other (multiple healing ulcers) Skin: Warm, Dry, Intact Neurological: No New Focal Deficit Sepsis Event Note - Evaluation Sepsis Screening Result: No Definite Risk - Focused Exam Vital Signs: Vital Signs Temp Pulse Resp BP Pulse Ox 02/19/20 04:55 36.2 C 80 14 123/56 L 95 02/19/20 00:43 36.1 C 76 15 113/65 - Problem List Review Problem List Initiated/Reviewed/Updated: Yes - My Orders Last 24 Hours: My Active Orders 02/19/20 11:33 BASIC METABOLIC PANEL,BMP [CHEM] Routine CBC WITH AUTO DIFF [HEME] Routine - Plan Plan:: 69 yo female admitted for general debility and UTI UTI: on Levaquin, lovett placed by Dr. Gtz for urinary obstruction PT consulted Dispo: pending placement or improvement in mobility.
[2020-02-19 11:44] LABS: BLOOD UREA NITROGEN,BUN 12 mg/dL (7.0-18.0); CARBON DIOXIDE,CO2 35.8 mmol/L (21.0-32.0); CHLORIDE,CL 100 mmol/L (98-107); GLUCOSE RANDOM 148 mg/dL (74-106); POTASSIUM,K 5.4 mmol/L (3.5-5.1); SODIUM,NA 137 mmol/L (136-145)
--- NOTE | 2020-02-19 20:38 | PCM.SN.2 ---
- Free Text/Narrative Note: I discussed with patient getting a CT scan of pelvis to evaluate urinary obstruction. Patient currently is refusing any CT imaging.
[2020-02-19] MEDS: Metoprolol Succinate 100 MG Tab.ER PO SCH (21:06)
[2020-02-20] MEDS ORDERED: Levofloxacin 250 MG Tab PO SCH (06:00)
[2020-02-20] MEDS: Gabapentin 300 MG Cap PO SCH (06:27)
[2020-02-20] MEDS: Nystatin Topical Powder 15 GM Bottle TOP SCH (06:27)
[2020-02-20] MEDS: Insulin Aspart 100 Units/ML 3 ML Pen SUBCUT SCH ×2 (06:44→13:03)
[2020-02-20 08:32] LABS: CARBON DIOXIDE,CO2 34.4 mmol/L (21.0-32.0); POTASSIUM,K 4.8 mmol/L (3.5-5.1)
[2020-02-20] MEDS: DULoxetine 60 MG Cap PO SCH (08:50)
[2020-02-20 12:05] VITALS: BP 121/60; PULSE 70
--- NOTE | 2020-02-20 12:11 | PCM.DCSUM1 ---
<Torres Cornell - Last Filed: 02/20/20 18:00> Discharge Summary - Hospital Course Free Text/Narrative:: 69-year-old female admitted for debility and UTI. Patient has a PMH of a-fib on warfarin, HTN, HLD, pulmonary hypertension, CHF, DM type II and depression. Patient reported having difficulty ambulating at home and difficulty with transfers. Patient was started on levaquin for her UTI. Urine cultures returned growing martinez-sensitive E. Coli. Furthermore, patient developed acute urine r etention. Lovett catheter had to be placed by urology as multiple attempts to place lovett by nursing staff failed and it was suspected that patient has urinary obstruction. CT abd/pelvis was recommended to further evaluate for urinary obstruction, however, patient refused. PT was consulted for ambulation and debility. She refused hip x-rays to rule out fracture. Patient discharged in stable condition to SNF for inpatient rehab. Patient will require outpatient follow-up with urology. - Discharge Data Discharge Date: 02/20/20 Discharge Disposition: DC/Tfer to SNF 03 Condition: Stable - Referral to Home Health Primary Care Physician: Lucio Mcgowan MD - Discharge Diagnosis/Problem(s) (1) Urinary (tract) obstruction SNOMED Code(s): 1093359 ICD Code: N13.9 - OBSTRUCTIVE AND REFLUX UROPATHY, UNSPECIFIED Status: Acute (2) Debility SNOMED Code(s): 49030185 ICD Code: R53.81 - OTHER MALAISE Status: Acute (3) Afib SNOMED Code(s): 06226624 ICD Code: I48.91 - UNSPECIFIED ATRIAL FIBRILLATION Status: Acute (4) Fall SNOMED Code(s): 8521498 ICD Code: W19.XXXA - UNSPECIFIED FALL, INITIAL ENCOUNTER Status: Acute Onset Date: 05/16/14 (5) HTN (hypertension) SNOMED Code(s): 74091143 ICD Code: I10 - ESSENTIAL (PRIMARY) HYPERTENSION Status: Acute (6) Osteoarthritis SNOMED Code(s): 235984198 ICD Code: M19.90 - UNSPECIFIED OSTEOARTHRITIS, UNSPECIFIED SITE Status: Acute - Patient Summary/Data Consults: Consultations 02/17/20 02:30 Consult to Case Management/Highway Commissioner [CONS] Routine PT Evaluation and Treatment [CONS] Routine 02/17/20 16:39 Consult to Physician [CONS] Routine - Patient Instructions Diet: Usual Diet as Tolerated, Low Sodium Fluid Restriction: 2000 mL Activity: As Tolerated Notify Provider of: Fever, Increased Pain, Swelling and Redness, Drainage, Nausea and/or Vomiting Other/Special Instructions: PT/OT to evaluate and treat. Lovett catheter care per facility policy. - Discharge Plan *PRESCRIPTION DRUG MONITORING PROGRAM REVIEWED*: Not Applicable *COPY OF PRESCRIPTION DRUG MONITORING REPORT IN PATIENT JIMMY: Not Applicable Prescriptions/Med Rec: levoFLOXacin [Levaquin] 750 mg PO DAILY 4 Days #4 tab Home Medications: Home Meds DULoxetine [Cymbalta] 90 mg PO DAILY 05/16/14 [History] Digoxin 125 mcg PO TUTHSA 05/16/14 [History] Digoxin 250 mcg PO SUMOWEFR 05/16/14 [History] Metoprolol Succinate [Toprol Xl] 100 mg PO BEDTIME 05/16/14 [History] metFORMIN [Glucophage] 1,000 mg PO BIDM 05/16/14 [History] Insulin Glarg,Human.Rec.Analog [Lantus Solostar] 32 unit SUBCUT BEDTIME 09/30/15 [History] Insulin Aspart [Novolog Flexpen] 23 units SQ ACDINNER 12/16/15 [History] Acetaminophen/Codeine [Tylenol with Codeine No.3 300MG/30MG] 1 tab PO Q4H PRN 01/19/20 [History] Gabapentin [Neurontin] 600 mg PO TID 01/19/20 [History] Warfarin [Coumadin] 1.5 mg PO SUTUTHSA@1400 01/19/20 [History] Warfarin [Coumadin] 3 mg PO MOWEFR@1400 01/19/20 [History] Furosemide [Lasix] 40 mg PO DAILY 02/19/20 [History] Potassium Chloride [Klor-Con M20] 20 meq PO DAILY 02/20/20 [History] levoFLOXacin [Levaquin] 750 mg PO DAILY 4 Days #4 tab 02/20/20 [Rx] Patient Handouts: Urinary Tract Infection, Adult, [id number], Levofloxacin tablets, Acute Urinary Retention, Female, [id number] Referrals: Vladimir Lentz MD [Ordering Only Provider] - 02/22/20 (You have been added to [facility].) - Discharge Summary/Plan Comment DC Time >30 min.: No - Patient Data Vitals - Most Recent: Last Vital Signs Temp 35.3 C L 02/20/20 11:40 Pulse 70 02/20/20 11:40 Resp 12 02/20/20 11:40 BP 121/60 02/20/20 11:40 Pulse Ox 93 L 02/20/20 11:40 Weight - Most Recent: 104.326 kg I&O - Last 24 hours: Intake & Output 02/19/20 02/20/20 02/20/20 22:59 06:59 14:59 Intake Total 620 450 Output Total 580 300 Balance 40 150 Lab Results - Last 24 hrs: Laboratory Results - last 24 hr 02/19/20 02/19/20 02/20/20 Range/Units 11:57 17:54 06:44 WBC (4.0-11.0) K/uL RBC (4.30-5.90) M/uL Hgb (12.0-16.0) g/dL Hct (36.0-46.0) % MCV (80.0-98.0) fL MCH (27.0-32.0) pg MCHC (31.0-37.0) g/dL RDW Std Deviation (28.0-62.0) fl RDW Coeff of Zaida (11.0-15.0) % Plt Count (150-400) K/uL MPV (7.40-12.00) fL Neut % (Auto) (48.0-80.0) % Lymph % (Auto) (16.0-40.0) % [place] % (Auto) (0.0-15.0) % Eos % (Auto) (0.0-7.0) % Baso % (Auto) (0.0-1.5) % Neut # (Auto) (1.4-5.7) K/uL Lymph # (Auto) (0.6-2.4) K/uL [place] # (Auto) (0.0-0.8) K/uL Eos # (Auto) (0.0-0.7) K/uL Baso # (Auto) (0.0-0.1) K/uL Nucleated RBC % /100WBC Nucleated RBCs # K/uL INR Sodium (136-145) mmol/L Potassium (3.5-5.1) mmol/L Chloride (98-107) mmol/L Carbon Dioxide (21.0-32.0) mmol/L BUN (7.0-18.0) mg/dL Creatinine (0.6-1.0) mg/dL Est Cr Clr Drug Dosing mL/min Estimated GFR (MDRD) ml/min Glucose (74-106) mg/dL POC Glucose 126 H 157 H 145 H (60-110) mg/dL Calcium (8.5-10.1) mg/dL SARS-CoV-2 RNA (FELIPE) (NEGATIVE) 02/20/20 02/20/20 02/20/20 Range/Units 07:55 07:55 07:55 WBC 7.99 (4.0-11.0) K/uL RBC 4.23 L (4.30-5.90) M/uL Hgb 14.0 (12.0-16.0) g/dL Hct 45.6 (36.0-46.0) % MCV 107.8 H (80.0-98.0) fL MCH 33.1 H (27.0-32.0) pg MCHC 30.7 L (31.0-37.0) g/dL RDW Std Deviation 67.2 H (28.0-62.0) fl RDW Coeff of Zaida 17 H (11.0-15.0) % Plt Count 178 (150-400) K/uL MPV 11.10 (7.40-12.00) fL Neut % (Auto) 80.5 H (48.0-80.0) % Lymph % (Auto) 8.1 L (16.0-40.0) % [place] % (Auto) 10.3 (0.0-15.0) % Eos % (Auto) 0.8 (0.0-7.0) % Baso % (Auto) 0.3 (0.0-1.5) % Neut # (Auto) 6.4 H (1.4-5.7) K/uL Lymph # (Auto) 0.7 (0.6-2.4) K/uL [place] # (Auto) 0.8 (0.0-0.8) K/uL Eos # (Auto) 0.1 (0.0-0.7) K/uL Baso # (Auto) 0.0 (0.0-0.1) K/uL Nucleated RBC % 0.0 /100WBC Nucleated RBCs # 0 K/uL INR 2.45 Sodium 141 (136-145) mmol/L Potassium 4.8 (3.5-5.1) mmol/L Chloride 101 (98-107) mmol/L Carbon Dioxide 34.4 H (21.0-32.0) mmol/L BUN 11 (7.0-18.0) mg/dL Creatinine 1.0 (0.6-1.0) mg/dL Est Cr Clr Drug Dosing 49.00 mL/min Estimated GFR (MDRD) 54.8 ml/min Glucose 171 H (74-106) mg/dL POC Glucose (60-110) mg/dL Calcium 8.4 L (8.5-10.1) mg/dL SARS-CoV-2 RNA (FELIPE) (NEGATIVE) 02/20/20 02/20/20 Range/Units 11:40 11:45 WBC (4.0-11.0) K/uL RBC (4.30-5.90) M/uL Hgb (12.0-16.0) g/dL Hct (36.0-46.0) % MCV (80.0-98.0) fL MCH (27.0-32.0) pg MCHC (31.0-37.0) g/dL RDW Std Deviation (28.0-62.0) fl RDW Coeff of Zaida (11.0-15.0) % Plt Count (150-400) K/uL MPV (7.40-12.00) fL Neut % (Auto) (48.0-80.0) % Lymph % (Auto) (16.0-40.0) % [place] % (Auto) (0.0-15.0) % Eos % (Auto) (0.0-7.0) % Baso % (Auto) (0.0-1.5) % Neut # (Auto) (1.4-5.7) K/uL Lymph # (Auto) (0.6-2.4) K/uL [place] # (Auto) (0.0-0.8) K/uL Eos # (Auto) (0.0-0.7) K/uL Baso # (Auto) (0.0-0.1) K/uL Nucleated RBC % /100WBC Nucleated RBCs # K/uL INR Sodium (136-145) mmol/L Potassium (3.5-5.1) mmol/L Chloride (98-107) mmol/L Carbon Dioxide (21.0-32.0) mmol/L BUN (7.0-18.0) mg/dL Creatinine (0.6-1.0) mg/dL Est Cr Clr Drug Dosing mL/min Estimated GFR (MDRD) ml/min Glucose (74-106) mg/dL POC Glucose 163 H (60-110) mg/dL Calcium (8.5-10.1) mg/dL SARS-CoV-2 RNA (FELIPE) NEGATIVE (NEGATIVE) ALEJANDRA Results - Last 24 hrs: Microbiology 02/16/20 23:00 Urine Culture - Final Urine, Catheterized Escherichia Coli Normal Urogenital Ashly Med Orders - Current: Current Medications Acetaminophen (Tylenol) 650 mg PO Q4H PRN PRN Reason: Pain (Mild 1-3)/fever Dextrose/Water (Dextrose 50% In Water) 50 ml IV ASDIRECTED PRN PRN Reason: Hypoglycemia Digoxin (Lanoxin) 250 mcg PO TuThSa@0900 [facility] Digoxin (Lanoxin) 125 mcg PO SuMoWeFr@0900 [facility] Duloxetine HCl (Cymbalta) 60 mg PO DAILY [facility] Last Admin: 02/20/20 08:50 Dose: 60 mg Documented by: Gabapentin (Neurontin) 300 mg PO TID [facility] Last Admin: 02/20/20 06:27 Dose: 300 mg Documented by: Glucagon (Glucagen) 1 mg IM ASDIRECTED PRN PRN Reason: Hypoglycemia Insulin Aspart (Novolog) 0 unit SUBCUT TIDAC [facility]; Protocol Last Admin: 02/20/20 06:44 Dose: Not Given Documented by: Levofloxacin (Levaquin) 750 mg PO Q24H [facility] Last Admin: 02/20/20 06:27 Dose: 750 mg Documented by: Metoprolol Succinate (Toprol Xl) 100 mg PO BEDTIME [facility] Last Admin: 02/19/20 21:06 Dose: 100 mg Documented by: Morphine Sulfate (Morphine) 2 mg IVPUSH Q4H PRN PRN Reason: Pain Last Admin: 02/19/20 21:08 Dose: 2 mg Documented by: Nystatin (Nystop) 1 gm TOP TID [facility] Last Admin: 02/20/20 06:27 Dose: 1 gm Documented by: Sodium Chloride (Saline Flush) 2.5 ml FLUSH ASDIRECTED PRN PRN Reason: Keep Vein Open Last Admin: 02/16/20 21:08 Dose: 2.5 ml Documented by: Sodium Chloride (Saline Flush) 10 ml FLUSH ASDIRECTED PRN PRN Reason: Keep Vein Open Last Admin: 02/16/20 21:08 Dose: 10 ml Documented by: Warfarin Sodium (Coumadin Ask) 1 each PO DAILY [facility] Last Admin: 02/20/20 11:22 Dose: Not Given Documented by: Warfarin Sodium (Coumadin) 3 mg PO DAILY@1400 ONE Stop: 02/20/20 14:01 Discontinued Medications Digoxin (Lanoxin) 250 mcg PO DAILY [facility] Last Admin: 02/18/20 08:26 Dose: 250 mcg Documented by: Fluconazole (Diflucan) 100 mg PO ONETIME ONE Stop: 02/17/20 02:18 Last Admin: 02/17/20 05:36 Dose: 100 mg Documented by: Fluconazole (Diflucan) 100 mg PO ONETIME ONE Stop: 02/17/20 05:16 Last Admin: 02/17/20 05:38 Dose: Not Given Documented by: Levofloxacin/Dextrose 750 mg/ (Premix) 150 mls @ 100 mls/hr IV Q24H [facility] Last Admin: 02/19/20 01:30 Dose: 100 mls/hr Documented by: Morphine Sulfate (Morphine) 1 mg IVPUSH ONETIME ONE Stop: 02/17/20 18:17 Last Admin: 02/17/20 20:08 Dose: Not Given Documented by: <Huber Matthew - Last Filed: 02/22/20 13:09> Discharge Summary - Hospital Course Free Text/Narrative:: I have seen and evaluated the patient and agree with the residents note unless specified in my note - Referral to Home Health Primary Care Physician: Lucio Mcgowan MD - Patient Summary/Data Consults: Consultations 02/17/20 02:30 Consult to Case Management/Highway Commissioner [CONS] Routine PT Evaluation and Treatment [CONS] Routine 02/17/20 16:39 Consult to Physician [CONS] Routine - Patient Data Vitals - Most Recent: Last Vital Signs Temp 35.3 C L 02/20/20 11:40 Pulse 70 02/20/20 11:40 Resp 12 02/20/20 11:40 BP 121/60 02/20/20 11:40 Pulse Ox 93 L 02/20/20 11:40 Med Orders - Current: Current Medications Discontinued Medications Acetaminophen (Tylenol) 650 mg PO Q4H PRN PRN Reason: Pain (Mild 1-3)/fever Dextrose/Water (Dextrose 50% In Water) 50 ml IV ASDIRECTED PRN PRN Reason: Hypoglycemia Digoxin (Lanoxin) 250 mcg PO DAILY [facility] Last Admin: 02/18/20 08:26 Dose: 250 mcg Documented by: Digoxin (Lanoxin) 250 mcg PO TuThSa@0900 [facility] Digoxin (Lanoxin) 125 mcg PO SuMoWeFr@0900 [facility] Duloxetine HCl (Cymbalta) 60 mg PO DAILY [facility] Last Admin: 02/20/20 08:50 Dose: 60 mg Documented by: Fluconazole (Diflucan) 100 mg PO ONETIME ONE Stop: 02/17/20 02:18 Last Admin: 02/17/20 05:36 Dose: 100 mg Documented by: Fluconazole (Diflucan) 100 mg PO ONETIME ONE Stop: 02/17/20 05:16 Last Admin: 02/17/20 05:38 Dose: Not Given Documented by: Gabapentin (Neurontin) 300 mg PO TID [facility] Last Admin: 02/20/20 06:27 Dose: 300 mg Documented by: Glucagon (Glucagen) 1 mg IM ASDIRECTED PRN PRN Reason: Hypoglycemia Levofloxacin/Dextrose 750 mg/ (Premix) 150 mls @ 100 mls/hr IV Q24H [facility] Last Admin: 02/19/20 01:30 Dose: 100 mls/hr Documented by: Insulin Aspart (Novolog) 0 unit SUBCUT TIDAC [facility]; Protocol Last Admin: 02/20/20 13:03 Dose: 1 unit Documented by: Levofloxacin (Levaquin) 750 mg PO Q24H [facility] Last Admin: 02/20/20 06:27 Dose: 750 mg Documented by: Metoprolol Succinate (Toprol Xl) 100 mg PO BEDTIME [facility] Last Admin: 02/19/20 21:06 Dose: 100 mg Documented by: Morphine Sulfate (Morphine) 2 mg IVPUSH Q4H PRN PRN Reason: Pain Last Admin: 02/19/20 21:08 Dose: 2 mg Documented by: Morphine Sulfate (Morphine) 1 mg IVPUSH ONETIME ONE Stop: 02/17/20 18:17 Last Admin: 02/17/20 20:08 Dose: Not Given Documented by: Nystatin (Nystop) 1 gm TOP TID [facility] Last Admin: 02/20/20 06:27 Dose: 1 gm Documented by: Sodium Chloride (Saline Flush) 2.5 ml FLUSH ASDIRECTED PRN PRN Reason: Keep Vein Open Last Admin: 02/16/20 21:08 Dose: 2.5 ml Documented by: Sodium Chloride (Saline Flush) 10 ml FLUSH ASDIRECTED PRN PRN Reason: Keep Vein Open Last Admin: 02/16/20 21:08 Dose: 10 ml Documented by: Warfarin Sodium (Coumadin Ask) 1 each PO DAILY [facility] Last Admin: 02/20/20 11:22 Dose: Not Given Documented by: Warfarin Sodium (Coumadin) 3 mg PO DAILY@1400 ONE Stop: 02/20/20 14:01 Last Admin: 02/20/20 13:04 Dose: 3 mg Documented by:
[2020-02-21] MEDS ORDERED: Digoxin 125 MCG Tab PO SCH (09:00)
[2020-02-22] MEDS ORDERED: Digoxin 250 MCG Tab PO SCH (09:00)
== END 2020-02-20 13:35 | DRG 699 ==
LOC: MW.ED 19:39 → OBSVTOIN 23:02 → MW.MS 23:02
PROVIDERS: ADMIT Internal Medicine; ATTEND Internal Medicine
DX: N13.9 Obstructive and reflux uropathy, unspecified (principal); I50.32 Chronic diastolic (congestive) heart failure; R53.81 Other malaise; W19.XXXA Unspecified fall, initial encounter; N39.0 Urinary tract infection, site not specified; H54.7 Unspecified visual loss; E78.5 Hyperlipidemia, unspecified; I48.91 Unspecified atrial fibrillation; I11.0 Hypertensive heart disease with heart failure; E78.00 Pure hypercholesterolemia, unspecified; B96.20 Unspecified Escherichia coli [E. coli] as the cause of diseases classified elsewhere; R33.9 Retention of urine, unspecified; I10 Essential (primary) hypertension; I27.20 Pulmonary hypertension, unspecified; M19.90 Unspecified osteoarthritis, unspecified site; M10.9 Gout, unspecified; F32.9 Major depressive disorder, single episode, unspecified; F41.9 Anxiety disorder, unspecified; E11.9 Type 2 diabetes mellitus without complications; E66.9 Obesity, unspecified; L40.9 Psoriasis, unspecified; Z85.42 Personal history of malignant neoplasm of other parts of uterus; Z98.1 Arthrodesis status; Z88.8 Allergy status to other drugs, medicaments and biological substances; Z68.37 Body mass index [BMI] 37.0-37.9, adult; Z79.01 Long term (current) use of anticoagulants; Z79.4 Long term (current) use of insulin; Z79.899 Other long term (current) drug therapy; Z20.828 Contact with and (suspected) exposure to other viral communicable diseases
CPT/HCPCS: 36415; 71045; 80053; 81001; 82550; 83690; 84484; 85025; 87086; 87088; 87186; 93005; U0002; 51798; 80048; 80162; 82962; 85610; 97110-GP; 97161-GP; 99222; 99231; 99238; 99283; 99285-25; A9270-GY; J1815-GY; J1956; J2270

== ENCOUNTER 2020-12-12 13:54 | Observation (INO) | payer MEDICARE, BC ==
[2020-12-12] MEDS ORDERED: Sodium Chloride 0.9% 10 ML Syringe FLUSH PRN (14:23)
[2020-12-12] MEDS ORDERED: Sodium Chloride 0.9% 2.5 ML Syringe FLUSH PRN (14:23)
--- NOTE | 2020-12-12 15:15 | EDM.PDOC ---
ED HPI GENERAL MEDICAL PROBLEM - General Chief Complaint: Trauma Stated Complaint: FALL Time Seen by Provider: 12/12/20 14:20 Source of Information: Reports: Patient - History of Present Illness INITIAL COMMENTS - FREE TEXT/NARRATIVE: 70-year-old female history of A. fib, hypertension, diabetes presents complaining of fall. Patient was lightheaded and fell at 3 AM. She hit her head. She is unable to get up and eventually she was able to contact to be brought to the hospital. Patient denies any premonitory chest pain or shortness of breath. No recent vomiting or diarrhea red or black stools. Patient denies any cough fevers or productive sputum or infectious complaints. She is complaining of moderate head and left shoulder pain, with movement Left Pain Score (Numeric/FACES): 5 - Related Data Allergies Allergy/AdvReac Type Severity Reaction Status Date / Time lorazepam [From Ativan] Allergy Hallucinati Verified 12/12/20 19:10 ons Home Meds: Home Meds DULoxetine [Cymbalta] 90 mg PO DAILY 05/16/14 [History] Digoxin 125 mcg PO TUTHSA 05/16/14 [History] Digoxin 250 mcg PO SUMOWEFR 05/16/14 [History] Metoprolol Succinate [Toprol Xl] 50 mg PO BEDTIME 05/16/14 [History] metFORMIN [Glucophage] 1,000 mg PO BIDM 05/16/14 [History] Insulin Glarg,Human.Rec.Analog [Lantus Solostar] 24 unit SUBCUT BEDTIME 09/30/15 [History] Insulin Aspart [Novolog Flexpen] 23 units SQ ACDINNER 12/16/15 [History] Acetaminophen/Codeine [Tylenol with Codeine No.3 300MG/30MG] 1 tab PO Q4H PRN 01/19/20 [History] Gabapentin [Neurontin] 600 mg PO TID 01/19/20 [History] Warfarin [Coumadin] 3 mg PO DAILY 01/19/20 [History] Warfarin [Coumadin] 4.5 mg PO DAILY 01/19/20 [History] Furosemide [Lasix] 40 mg PO DAILY 02/19/20 [History] Potassium Chloride [Klor-Con M20] 20 meq PO DAILY 02/20/20 [History] Cefdinir [Omnicef] 300 mg PO BID 5 Days #10 cap 12/14/20 [Rx] Cholecalciferol (Vitamin D3) [Vitamin D3] 5,000 unit PO DAILY #30 tablet 12/14/20 [Rx] Hydrocodone/Acetaminophen [HYDROcodone-Acetaminophen 5-325 MG] 1 each PO TID #12 tab 12/14/20 [Rx] polyethylene glycoL 3350 [MiraLAX] 17 gm PO BEDTIME #14 packet 12/14/20 [Rx] Past Medical History HEENT History: Reports: Impaired Vision Other HEENT History: wearas glasses Cardiovascular History: Reports: Afib, High Cholesterol, Hypertension, Pulmonary Hypertension Other Cardiovascular History: hx intermittent afib Respiratory History: Reports: None Gastrointestinal History: Reports: None Genitourinary History: Reports: None, Other (See Below) Other Genitourinary History: uterine cancer SENIOR C DEVELOPER History: Reports: None Other SENIOR C DEVELOPER History: uterine cancer Musculoskeletal History: Reports: Arthritis, Gout Neurological History: Reports: None Psychiatric History: Reports: Anxiety, Depression, Other (See Below) Endocrine/Metabolic History: Reports: Diabetes, Type II, Obesity/BMI 30+ Hematologic History: Reports: None Immunologic History: Reports: None Oncologic (Cancer) History: Reports: Uterine Dermatologic History: Reports: Psoriasis Other Dermatologic History: on face - Infectious Disease History Infectious Disease History: Reports: None - Past Surgical History Head Surgeries/Procedures: Reports: None Neurological Surgical History: Reports: Spinal Fusion Musculoskeletal Surgical History: Reports: Other (See Below) Oncologic Surgical History: Reports: Other (See Below) Social & Family History - Family History HEENT: Reports: None Musculoskeletal: Reports: Arthritis Neurological: Reports: CVA - Caffeine Use Caffeine Use: Reports: None Review of Systems - Review of Systems Review Of Systems: Comprehensive ROS is negative, except as noted in HPI. ED EXAM, GENERAL - Physical Exam Exam: See Below Free Text/Narrative:: CONSTITUTIONAL: well appearing in no acute distress SKIN: Oozing and ecchymosis over the left side of the head and face and shoulder HENT: Normocephalic, atraumatic, PULMONARY: clear to ausculation bilaterally. No rales, rhonchi, wheezing CARDIOVASCULAR: regular rate, No murmur, rubs, or gallops GASTROINTESTINAL: soft, nondistended, nontender NEUROLOGIC: normal speech, II-XII intact. light touch/5/5 power equal and symmetric in upper and lower extremities without deficit. Tenderness to the left shoulder. The left upper extremity is otherwise neurovascular intact. Tenderness to the right pelvis MUSCULOSKELETAL: no gross deformities, atraumatic PSYCHIATRIC: normal mood and affect #1 Interpretation Time: 15:14 EKG Interpretation Comments: 76, A. fib, nonspecific ST/T findings Course - Vital Signs Text/Narrative:: Differential diagnosis: Dysrhythmia, mechanical fall, dehydration, infection, traumatic injury, other Patient presents as outlined above from a traumatic standpoint the patient has what appears to be a T11 inferior endplate fracture nondisplaced. Patient has a contusion of the left shoulder no other acute fracture. Patient does have leukocytosis. There is also mild elevation of lactic acidosis. The leukocytosis could be from stress response. We are waiting a urine to ensure that there is no underlying concrement infectious source. Patient has been covered with antibiotics upon seeing the leukocytosis and she may very well have a UTI. Patient did look dry and was given IV fluids. There is very mild rhabdomyolysis. Patient otherwise also in A. fib and is currently rate controlled but she can be monitored for evidence of RVR or other dysrhythmia during hospitalization. Last Recorded V/S: Last Vital Signs Temp 36.1 C 12/14/20 12:10 Pulse 76 12/14/20 12:10 Resp 16 12/14/20 12:10 BP 103/56 L 12/14/20 12:10 Pulse Ox 95 12/14/20 12:10 - Orders/Labs/Meds Labs: Laboratory Tests 12/12/20 12/12/20 12/12/20 Range/Units 13:59 13:59 13:59 WBC 16.42 H (4.0-11.0) K/uL RBC 5.00 (4.30-5.90) M/uL Hgb 16.2 H (12.0-16.0) g/dL Hct 47.0 H (36.0-46.0) % MCV 94.0 (80.0-98.0) fL MCH 32.4 H (27.0-32.0) pg MCHC 34.5 (31.0-37.0) g/dL RDW Std Deviation 48.0 (28.0-62.0) fl RDW Coeff of Zaida 14 (11.0-15.0) % Plt Count 154 (150-400) K/uL MPV 11.40 (7.40-12.00) fL Neut % (Auto) 88.9 H (48.0-80.0) % Lymph % (Auto) 4.0 L (16.0-40.0) % [place] % (Auto) 6.9 (0.0-15.0) % Eos % (Auto) 0.1 (0.0-7.0) % Baso % (Auto) 0.1 (0.0-1.5) % Neut # (Auto) 14.6 H (1.4-5.7) K/uL Lymph # (Auto) 0.7 (0.6-2.4) K/uL [place] # (Auto) 1.1 H (0.0-0.8) K/uL Eos # (Auto) 0.0 (0.0-0.7) K/uL Baso # (Auto) 0.0 (0.0-0.1) K/uL Nucleated RBC % 0.0 /100WBC Nucleated RBCs # 0 K/uL INR 2.74 Sodium 139 (136-145) mmol/L Potassium 4.4 (3.5-5.1) mmol/L Chloride 99 (98-107) mmol/L Carbon Dioxide 31.2 (21.0-32.0) mmol/L BUN 28 H (7.0-18.0) mg/dL Creatinine 1.0 (0.6-1.0) mg/dL Est Cr Clr Drug Dosing TNP Estimated GFR (MDRD) 54.7 ml/min Glucose 158 H (74-106) mg/dL Lactic Acid (0.4-2.0) mmol/L Calcium 8.7 (8.5-10.1) mg/dL Magnesium (1.8-2.4) mg/dL Total Bilirubin 1.8 H (0.2-1.0) mg/dL AST 43 H (15-37) IU/L ALT 22 (14-63) IU/L Alkaline Phosphatase 98 (46-116) U/L Creatine Kinase 897 H (26-308) U/L Troponin I < 0.050 (0.000-0.056) ng/mL B-Natriuretic Peptide (<100) PG/ML Total Protein 7.2 (6.4-8.2) g/dL Albumin 3.8 (3.4-5.0) g/dL Globulin 3.4 (2.6-4.0) g/dL Albumin/Globulin Ratio 1.1 (0.9-1.6) Lipase 21 L (73-393) U/L Vitamin D 25-Hydroxy (30.0-100.0) ng/mL Digoxin 1.3 (0.9-2.0) ng/mL SARS-CoV-2 RNA (FELIPE) (NEGATIVE) 12/12/20 12/12/20 12/12/20 Range/Units 13:59 13:59 14:50 WBC (4.0-11.0) K/uL RBC (4.30-5.90) M/uL Hgb (12.0-16.0) g/dL Hct (36.0-46.0) % MCV (80.0-98.0) fL MCH (27.0-32.0) pg MCHC (31.0-37.0) g/dL RDW Std Deviation (28.0-62.0) fl RDW Coeff of Zaida (11.0-15.0) % Plt Count (150-400) K/uL MPV (7.40-12.00) fL Neut % (Auto) (48.0-80.0) % Lymph % (Auto) (16.0-40.0) % [place] % (Auto) (0.0-15.0) % Eos % (Auto) (0.0-7.0) % Baso % (Auto) (0.0-1.5) % Neut # (Auto) (1.4-5.7) K/uL Lymph # (Auto) (0.6-2.4) K/uL [place] # (Auto) (0.0-0.8) K/uL Eos # (Auto) (0.0-0.7) K/uL Baso # (Auto) (0.0-0.1) K/uL Nucleated RBC % /100WBC Nucleated RBCs # K/uL INR Sodium (136-145) mmol/L Potassium (3.5-5.1) mmol/L Chloride (98-107) mmol/L Carbon Dioxide (21.0-32.0) mmol/L BUN (7.0-18.0) mg/dL Creatinine (0.6-1.0) mg/dL Est Cr Clr Drug Dosing Estimated GFR (MDRD) ml/min Glucose (74-106) mg/dL Lactic Acid (0.4-2.0) mmol/L Calcium (8.5-10.1) mg/dL Magnesium 1.2 L (1.8-2.4) mg/dL Total Bilirubin (0.2-1.0) mg/dL AST (15-37) IU/L ALT (14-63) IU/L Alkaline Phosphatase (46-116) U/L Creatine Kinase (26-308) U/L Troponin I (0.000-0.056) ng/mL B-Natriuretic Peptide 106 H (<100) PG/ML Total Protein (6.4-8.2) g/dL Albumin (3.4-5.0) g/dL Globulin (2.6-4.0) g/dL Albumin/Globulin Ratio (0.9-1.6) Lipase (73-393) U/L Vitamin D 25-Hydroxy < 5.8 L (30.0-100.0) ng/mL Digoxin (0.9-2.0) ng/mL SARS-CoV-2 RNA (FELIPE) NEGATIVE (NEGATIVE) 12/12/20 Range/Units 15:02 WBC (4.0-11.0) K/uL RBC (4.30-5.90) M/uL Hgb (12.0-16.0) g/dL Hct (36.0-46.0) % MCV (80.0-98.0) fL MCH (27.0-32.0) pg MCHC (31.0-37.0) g/dL RDW Std Deviation (28.0-62.0) fl RDW Coeff of Zaida (11.0-15.0) % Plt Count (150-400) K/uL MPV (7.40-12.00) fL Neut % (Auto) (48.0-80.0) % Lymph % (Auto) (16.0-40.0) % [place] % (Auto) (0.0-15.0) % Eos % (Auto) (0.0-7.0) % Baso % (Auto) (0.0-1.5) % Neut # (Auto) (1.4-5.7) K/uL Lymph # (Auto) (0.6-2.4) K/uL [place] # (Auto) (0.0-0.8) K/uL Eos # (Auto) (0.0-0.7) K/uL Baso # (Auto) (0.0-0.1) K/uL Nucleated RBC % /100WBC Nucleated RBCs # K/uL INR Sodium (136-145) mmol/L Potassium (3.5-5.1) mmol/L Chloride (98-107) mmol/L Carbon Dioxide (21.0-32.0) mmol/L BUN (7.0-18.0) mg/dL Creatinine (0.6-1.0) mg/dL Est Cr Clr Drug Dosing Estimated GFR (MDRD) ml/min Glucose (74-106) mg/dL Lactic Acid 2.6 H* (0.4-2.0) mmol/L Calcium (8.5-10.1) mg/dL Magnesium (1.8-2.4) mg/dL Total Bilirubin (0.2-1.0) mg/dL AST (15-37) IU/L ALT (14-63) IU/L Alkaline Phosphatase (46-116) U/L Creatine Kinase (26-308) U/L Troponin I (0.000-0.056) ng/mL B-Natriuretic Peptide (<100) PG/ML Total Protein (6.4-8.2) g/dL Albumin (3.4-5.0) g/dL Globulin (2.6-4.0) g/dL Albumin/Globulin Ratio (0.9-1.6) Lipase (73-393) U/L Vitamin D 25-Hydroxy (30.0-100.0) ng/mL Digoxin (0.9-2.0) ng/mL SARS-CoV-2 RNA (FELIPE) (NEGATIVE) Meds: Medications Discontinued Medications Generic Name Dose Route Start Last Admin Trade Name Freq PRN Reason Stop Dose Admin Acetaminophen 650 mg 12/12/20 17:56 12/14/20 02:57 Acetaminophen 325 Mg Tab PO 650 mg Q4H PRN Administration Pain (Mild 1-3)/fever Bacitracin 1 dose 12/14/20 09:10 Bacitracin Oint 1 Gm U/D Packet TOP Q6HR PRN Wound Care Cholecalciferol 125 mcg 12/13/20 09:00 12/14/20 08:09 Cholecalciferol (Vitamin D3) 25 Mcg Tab PO 125 mcg DAILY FORREST Administration Dextrose/Water 50 ml 12/12/20 17:58 50% Dextrose In Water 50 Ml Syringe IVPUSH ASDIRECTED PRN Hypoglycemia Digoxin 250 mcg 12/13/20 22:21 12/13/20 23:11 Digoxin 250 Mcg Tab PO 250 mcg SUMOWEFR FORREST Administration Digoxin 125 mcg 12/14/20 09:00 12/14/20 09:58 Digoxin 125 Mcg Tab PO 125 mcg TUTHSA [facility] Administration Docusate Sodium 100 mg 12/13/20 22:16 12/13/20 23:11 Docusate Sodium 100 Mg Cap PO 100 mg DAILY PRN Administration Constipation Duloxetine HCl 90 mg 12/13/20 09:00 12/14/20 08:09 Duloxetine 30 Mg Cap PO 90 mg DAILY FORREST Administration Gabapentin 600 mg 12/13/20 14:00 12/14/20 14:04 Gabapentin 300 Mg Cap PO 600 mg TID FORREST Administration Glucagon 1 mg 12/12/20 17:58 Glucagon,Human Recombinant 1 Mg Vial IM ASDIRECTED PRN Hypoglycemia Ceftriaxone Sodium/Dextrose 1 50 mls @ 100 mls/hr 12/12/20 15:29 12/12/20 15:40 gm/ Premix IV 12/12/20 15:58 100 mls/hr ONETIME ONE Administration Magnesium Sulfate 4 gm/ Premix 100 mls @ 50 mls/hr 12/12/20 19:16 12/12/20 20:35 IV 12/12/20 21:15 50 mls/hr ONETIME ONE Administration Ceftriaxone Sodium/Dextrose 1 50 mls @ 100 mls/hr 12/13/20 15:00 12/14/20 14:05 gm/ Premix IV 100 mls/hr Q24H FORREST Administration Lactated Ringer's 1,000 mls @ 100 mls/hr 12/12/20 19:30 12/14/20 06:10 Ringers, Lactated IV 100 mls/hr ASDIRECTED FORREST Administration Insulin Aspart 0 unit 12/13/20 07:30 12/14/20 12:16 Insulin Aspart 100 Units/Ml 3 Ml Pen SUBCUT Not Given TIDAC [facility] Protocol Insulin Glargine 24 units 12/13/20 21:00 12/13/20 20:45 Insulin Glargine,Human Rec. Analog 100 Units/Ml 3 Ml Pen SUBCUT 24 units BEDTIME FORREST Administration Metoprolol Succinate 50 mg 12/13/20 21:00 12/13/20 20:53 Metoprolol Succinate 100 Mg Tab.Er PO 50 mg BEDTIME FORREST Administration Morphine Sulfate 4 mg 12/12/20 15:30 12/12/20 15:39 Morphine 4 Mg/Ml Syringe IVPUSH 12/12/20 15:31 4 mg ONETIME ONE Administration Morphine Sulfate 2 mg 12/12/20 20:32 12/13/20 09:29 Morphine 2 Mg/Ml Syringe IVPUSH 2 mg Q4H PRN Administration Pain Oxycodone/Acetaminophen 1 tab 12/13/20 13:33 12/14/20 07:55 Acetaminophen/Oxycodone 325-5 Mg Tab PO 1 tab Q8H PRN Administration Pain Sodium Chloride 10 ml 12/12/20 14:23 12/12/20 16:26 Sodium Chloride 0.9% 10 Ml Syringe FLUSH 10 ml ASDIRECTED PRN Administration Keep Vein Open Sodium Chloride 2.5 ml 12/12/20 14:23 12/12/20 16:26 Sodium Chloride 0.9% 2.5 Ml Syringe FLUSH 2.5 ml ASDIRECTED PRN Administration Keep Vein Open Warfarin Sodium 3 mg 12/14/20 14:00 12/14/20 14:04 Warfarin 2 Mg Tab PO 3 mg [id number] FORREST Administration Warfarin Sodium 2.5 mg 12/13/20 14:00 12/13/20 13:51 Warfarin 2.5 Mg Tab PO 2.5 mg Fr@1400 FORREST Administration Warfarin Sodium 2 mg 12/13/20 14:00 12/13/20 13:52 Warfarin 2 Mg Tab PO 2 mg Fr@1400 FORREST Administration Departure - Departure Time of Disposition: 16:44 Disposition: Admitted As Inpatient 65 Condition: Good Clinical Impression: Atrial fibrillation, Dehydration, Closed T11 spinal fracture, Leukocytosis - Discharge Information
--- NOTE | 2020-12-12 15:21 | CR ---
INDICATION: Chest pain. TECHNIQUE: Chest 1 view. COMPARISON: Chest radiograph 02/16/2020. FINDINGS: No focal consolidation, pleural effusion, or pneumothorax. Mild left basilar atelectasis. Heart size upper limits of normal. Prominence of the right heart border again noted which may be due to enlargement of the right atrium and/or ectasia of the ascending thoracic aorta. Degenerative changes of the shoulders. IMPRESSION: 1. No acute cardiopulmonary findings. 2. Prominence of the right heart border similar to prior exam. Dictated by Shari Sarabia MD @ 12/12/2020 3:20:[address] Shari Sarabia @ Dec 12 2020 3:20PM
[2020-12-12 15:29] LABS: BLOOD UREA NITROGEN,BUN 28 mg/dL (7.0-18.0); CARBON DIOXIDE,CO2 31.2 mmol/L (21.0-32.0); CHLORIDE,CL 99 mmol/L (98-107); GLUCOSE RANDOM 158 mg/dL (74-106); LIPASE 21 U/L (73-393); POTASSIUM,K 4.4 mmol/L (3.5-5.1); SODIUM,NA 139 mmol/L (136-145)
[2020-12-12] MEDS ORDERED: cefTRIAXone 1 GM in Premix Bag 1 BAG IV ONE (15:29)
--- NOTE | 2020-12-12 15:29 | CT ---
INDICATION: Trauma. COMPARISON: CT head 03/19/2012. TECHNIQUE: CT of the head without IV contrast. Coronal and sagittal reconstructions are provided. FINDINGS: No intracranial hemorrhage, mass effect, or evidence of acute infarct. No midline shift. No abnormal extra-axial fluid collections. Normal caliber ventricular system. Moderate chronic small vessel ischemic disease. Orbits and extraocular muscles are symmetric. Trace mucosal thickening or fluid in the left maxillary sinus and right sphenoid sinus. The paranasal sinuses and mastoid air cells are otherwise clear. Hyperostosis frontalis internus. No acute fracture identified. Mild soft tissue swelling in the left forehead and left periorbital region. IMPRESSION: : 1. No acute intracranial findings. 2. Mild soft tissue swelling in the left forehead and left periorbital region. Please note that all CT scans at this facility use dose modulation, iterative reconstruction, and/or weight-based dosing when appropriate to reduce radiation dose to as low as reasonably achievable. Dictated by Shari Sarabia MD @ 12/12/2020 3:27:[address] Shari Sarabia @ Dec 12 2020 3:27PM
[2020-12-12] MEDS ORDERED: Morphine 4 MG/ML Syringe IVPUSH ONE (15:30)
--- NOTE | 2020-12-12 15:35 | CT ---
INDICATION: Trauma. COMPARISON: CT head 03/19/2012. TECHNIQUE: CT of the facial bones without IV contrast. Coronal and sagittal reconstructions. FINDINGS: No evidence of a fracture within the facial bones. Trace mucosal thickening or fluid within the maxillary sinuses and right sphenoid sinus. The paranasal sinuses and mastoid air cells are otherwise clear. No bony hyperostosis or areas of bone destruction. The ostiomeatal complexes are patent bilaterally. The nasal septum is midline. The mandible is intact and the temporomandibular joints are anatomically aligned. Dental disease noted within a few maxillary teeth bilaterally. Mild soft tissue swelling in the left forehead, left periorbital region, left cheek, and left anterior neck. Orbits and extraocular muscles are symmetric. No retro-orbital hematoma or fat stranding. Visualized intracranial contents are unremarkable. The upper cervical spine is negative. IMPRESSION: 1. No acute fracture identified. 2. Mild soft tissue swelling in the left forehead, left periorbital region, left cheek, and left anterior neck. 3. Trace paranasal sinus mucosal thickening or fluid. Please note that all CT scans at this facility use dose modulation, iterative reconstruction, and/or weight-based dosing when appropriate to reduce radiation dose to as low as reasonably achievable. Dictated by Shari Sarabia MD @ 12/12/2020 3:35:[address] Shari Sarabia @ Dec 12 2020 3:35PM
--- NOTE | 2020-12-12 15:44 | CT ---
Indication: Trauma. Technique: CT of the cervical spine without IV contrast. Coronal and sagittal reconstructions. Comparison: None Findings: No acute fracture or traumatic malalignment of the cervical spine. Vertebral body heights are well maintained. Normal vertebral body alignment. Bridging anterior osteophytes at C4-C6. Multilevel facet arthropathy. No significant disc space narrowing. Varying degrees of neural foraminal narrowing. No significant spinal canal stenosis. No prevertebral soft tissue swelling. Visualized intracranial contents are unremarkable. The mastoid air cells are clear. Mild wall thickening of the visualized upper esophagus. The left thyroid lobe is mildly enlarged and contains calcifications. The lung apices are clear. Soft tissue swelling in the left periorbital region, left cheek, left anterior neck, and left anterior chest wall. Impression: 1. No acute fracture or traumatic malalignment of the cervical spine. 2. Spondylotic changes of the cervical spine. 3. Soft tissue swelling in the left periorbital region, left cheek, left anterior neck, and left anterior chest wall. 4. Mild enlargement and calcification in the left thyroid lobe. This could be further evaluated with nonemergent thyroid ultrasound. 5. Mild wall thickening of the visualized upper esophagus could be inflammatory. Please note that all CT scans at this facility use dose modulation, iterative reconstruction, and/or weight-based dosing when appropriate to reduce radiation dose to as low as reasonably achievable. Dictated by Shari Sarabia MD @ 12/12/2020 3:42:[address] Shari Sarabia @ Dec 12 2020 3:42PM
--- NOTE | 2020-12-12 16:11 | CR ---
Indication: Trauma and pain Technique: Left shoulder 3 views. Comparison: None Findings: Bones: Alignment is normal. No fractures or bone lesions. Joint spaces: Severe arthritic changes in the AC joint. Also severe narrowing of the subacromial space suggesting rotator cuff disease. Soft tissues: Unremarkable. Impression: No sign of acute injury. Dictated by Kendrick Pierre MD @ 12/12/2020 4:11:[address] Kendrick Pierre @ Dec 12 2020 4:11PM
--- NOTE | 2020-12-12 16:20 | CT ---
INDICATION: trauma CT ABDOMEN AND PELVIS WITHOUT CONTRAST TECHNIQUE: Multidetector CT imaging was performed through the abdomen and pelvis without intravenous contrast administration. Coronal and sagittal reconstructions were generated. COMPARISON: None. FINDINGS: The exam is limited by lack of IV contrast, artifact from the patient`s arms, and artifact from surgical hardware in the lumbar spine. Lower chest: Minimal right basilar lung atelectasis. Liver: Within normal limits. Gallbladder and bile ducts: No gallbladder wall thickening or calcified gallstones. No biliary dilation identified. Pancreas: Unremarkable. Spleen: Normal. Adrenals: No nodules or masses. Kidneys, ureters, and urinary bladder: No urinary tract stones identified. No hydronephrosis. No obvious perinephric fluid collections. No bladder mass or definite wall thickening. Gastrointestinal tract: Normal caliber bowel without wall thickening or obstruction. The appendix is normal. There are a few colon diverticula, without evidence of diverticulitis. Vascular structures: Mild coronary artery calcifications. Peritoneum: No free air, abscess, or significant free fluid. Lymph nodes: No pathologically enlarged nodes identified. Reproductive organs: Status post hysterectomy. No pelvic masses. Bones: Recent-appearing fracture of the left anterior aspect of the inferior endplate of T11, extending to the right and involving bridging osteophytosis along the right side of the T11-T12 disc space. Old healed left 10th rib fracture. Advanced multilevel spondylosis. Status post lumbar laminectomy and instrumented fusion. Severe bilateral hip DJD. IMPRESSION: 1. Recent-appearing nondisplaced fracture of the inferior endplate of T11. 2. No acute traumatic intra-abdominal findings. 3. Nonacute findings as detailed above. VIRAL ALEXANDRE MD [employer] Dictated by Mj Alexandre MD @ 12/12/2020 4:16:47 PM Please note that all CT scans at this facility use dose modulation, iterative reconstruction, and/or weight-based dosing when appropriate to reduce radiation dose to as low as reasonably achievable. Dictated by: Mj Alexandre MD @ 12/12/2020 16:19:03 (Electronically Signed)
--- NOTE | 2020-12-12 17:21 | PCM.HP.2 ---
H&P History of Present Illness - General Date of Service: 12/12/20 Admit Problem/Dx: Admission Diagnosis/Problem Admission Diagnosis/Problem Fall - History of Present Illness Initial Comments - Free Text/Narative: 70-year-old female with past medical history of with PMH of Afib, Hypertension, Pulmonary hypertension, diabetes mellitus, OA presents to the ER due to a fall. Patient states waking up roughly 3 AM this morning at which point she attempted to go to the kitchen. Patient states that she believes her blood sugar was low causing her to get dizzy and falling. Patient states she was on the floor from 3 AM to 1:30 PM, at which point emergency services was contacted via family members and transported to the ED. patient was lightheaded and fell at 3 AM. Patient is not sure if she hit her head. Patient denies chest pain, cough, shortness of breath, headache, dizziness, abdominal pain, nausea, vomiting, diarrhea, dysuria, hematuria. Patient complains of moderate lower back pain with movement. Patient admitted for generalized weakness, fall secondary to suspected hypoglycemia, dehydration, suspected UTI. Laboratory on admission to include white blood cell count 16.4, hemoglobin 16.2, platelet 154, sodium 139, potassium 4.4, BUN 28, creatinine 1.0, glucose 158, lactic acid 2.6, creatine kinase a 97. Abdomen pelvis CT impression nondisplaced fracture of the inferior endplate of T11, no acute traumatic intra-abdominal findings Cervical CT spine impression-no acute fracture or traumatic malalignment of the cervical spine, tissue swelling in the left periorbital region, left cheek Facial/sinus CT impressions-no acute fracture notified, mild soft tissue swelling left forehead, left periorbital region, left cheek and left anterior neck. Trace paranasal sinus mucosal thickening or fluid Head CT impression-no acute intracranial findings, no hemorrhage, no mass- effect, no evidence of acute infarct. Chronic small vessel ischemic disease. Chest x-ray impression-no focal consolidation, pleural effusion, new pneumothorax. Mild left atelectasis. No acute cardiopulmonary findings. Left shoulder x-ray impression-no sign of acute injury. No fracture or bone lesions, alignment is normal. Admit patient for glucose management, IV fluids, IV antibiotics, physical therapy assessment, pain management. Left Pain Score (Numeric/FACES): 9 - Related Data Allergies/Adverse Reactions: Allergies Allergy/AdvReac Type Severity Reaction Status Date / Time lorazepam [From Ativan] Allergy Hallucinati Verified 12/12/20 19:10 ons Home Medications: Home Meds DULoxetine [Cymbalta] 90 mg PO DAILY 05/16/14 [History] Digoxin 125 mcg PO TUTHSA 05/16/14 [History] Digoxin 250 mcg PO SUMOWEFR 05/16/14 [History] Metoprolol Succinate [Toprol Xl] 50 mg PO BEDTIME 05/16/14 [History] metFORMIN [Glucophage] 1,000 mg PO BIDM 05/16/14 [History] Insulin Glarg,Human.Rec.Analog [Lantus Solostar] 24 unit SUBCUT BEDTIME 09/30/15 [History] Insulin Aspart [Novolog Flexpen] 23 units SQ ACDINNER 12/16/15 [History] Acetaminophen/Codeine [Tylenol with Codeine No.3 300MG/30MG] 1 tab PO Q4H PRN 01/19/20 [History] Gabapentin [Neurontin] 600 mg PO TID 01/19/20 [History] Warfarin [Coumadin] 3 mg PO DAILY 01/19/20 [History] Warfarin [Coumadin] 4.5 mg PO DAILY 01/19/20 [History] Furosemide [Lasix] 40 mg PO DAILY 02/19/20 [History] Potassium Chloride [Klor-Con M20] 20 meq PO DAILY 02/20/20 [History] Past Medical History HEENT History: Reports: Impaired Vision Other HEENT History: wearas glasses Cardiovascular History: Reports: Afib, High Cholesterol, Hypertension, Pulmonary Hypertension Other Cardiovascular History: hx intermittent afib Respiratory History: Reports: None Gastrointestinal History: Reports: None Genitourinary History: Reports: None, Other (See Below) Other Genitourinary History: uterine cancer G[employer]ICER History: Reports: None Other OB/BYN History: uterine cancer Musculoskeletal History: Reports: Arthritis, Gout Neurological History: Reports: None Psychiatric History: Reports: Anxiety, Depression, Other (See Below) Endocrine/Metabolic History: Reports: Diabetes, Type II, Obesity/BMI 30+ Hematologic History: Reports: None Immunologic History: Reports: None Oncologic (Cancer) History: Reports: Uterine Dermatologic History: Reports: Psoriasis Other Dermatologic History: on face - Infectious Disease History Infectious Disease History: Reports: None - Past Surgical History Head Surgeries/Procedures: Reports: None Neurological Surgical History: Reports: Spinal Fusion Musculoskeletal Surgical History: Reports: Other (See Below) Oncologic Surgical History: Reports: Other (See Below) Social & Family History - Family History HEENT: Reports: None Musculoskeletal: Reports: Arthritis Neurological: Reports: CVA - Caffeine Use Caffeine Use: Reports: None H&P Review of Systems - Review of Systems: Review Of Systems: See Below General: Reports: Weakness, Fatigue. Denies: Fever, Chills HEENT: Denies: Headaches, Visual Changes Pulmonary: Denies: Shortness of Breath, Wheezing, Cough Cardiovascular: Denies: Chest Pain, Edema Gastrointestinal: Denies: Abdominal Pain, Distension, Nausea, Vomiting Genitourinary: Denies: Dysuria, Burning Musculoskeletal: Reports: Back Pain Psychiatric: Denies: Confusion, Depression Neurological: Denies: Confusion, Dizziness Exam - Exam Exam: See Below - Exam General: Alert Lungs: Clear to Auscultation, Normal Respiratory Effort Cardiovascular: Regular Rate, Regular Rhythm GI/Abdominal Exam: Soft, Non-Tender Back Exam: Paraspinal Tenderness. No: Full Range of Motion, CVA Tenderness (L), CVA Tenderness (R) Extremities: No Pedal Edema Neuro Extensive - Mental Status: Alert, Oriented x3 Psychiatric: Alert - Patient Data Lab Results Last 24 hrs: Laboratory Results - last 24 hr 12/12/20 12/12/20 12/12/20 Range/Units 13:59 13:59 13:59 WBC 16.42 H (4.0-11.0) K/uL RBC 5.00 (4.30-5.90) M/uL Hgb 16.2 H (12.0-16.0) g/dL Hct 47.0 H (36.0-46.0) % MCV 94.0 (80.0-98.0) fL MCH 32.4 H (27.0-32.0) pg MCHC 34.5 (31.0-37.0) g/dL RDW Std Deviation 48.0 (28.0-62.0) fl RDW Coeff of Zaida 14 (11.0-15.0) % Plt Count 154 (150-400) K/uL MPV 11.40 (7.40-12.00) fL Neut % (Auto) 88.9 H (48.0-80.0) % Lymph % (Auto) 4.0 L (16.0-40.0) % Meigs % (Auto) 6.9 (0.0-15.0) % Eos % (Auto) 0.1 (0.0-7.0) % Baso % (Auto) 0.1 (0.0-1.5) % Neut # (Auto) 14.6 H (1.4-5.7) K/uL Lymph # (Auto) 0.7 (0.6-2.4) K/uL Meigs # (Auto) 1.1 H (0.0-0.8) K/uL Eos # (Auto) 0.0 (0.0-0.7) K/uL Baso # (Auto) 0.0 (0.0-0.1) K/uL Nucleated RBC % 0.0 /100WBC Nucleated RBCs # 0 K/uL INR 2.74 Sodium 139 (136-145) mmol/L Potassium 4.4 (3.5-5.1) mmol/L Chloride 99 (98-107) mmol/L Carbon Dioxide 31.2 (21.0-32.0) mmol/L BUN 28 H (7.0-18.0) mg/dL Creatinine 1.0 (0.6-1.0) mg/dL Est Cr Clr Drug Dosing TNP Estimated GFR (MDRD) 54.7 ml/min Glucose 158 H (74-106) mg/dL Lactic Acid (0.4-2.0) mmol/L Calcium 8.7 (8.5-10.1) mg/dL Total Bilirubin 1.8 H (0.2-1.0) mg/dL AST 43 H (15-37) IU/L ALT 22 (14-63) IU/L Alkaline Phosphatase 98 (46-116) U/L Creatine Kinase 897 H (26-308) U/L Troponin I < 0.050 (0.000-0.056) ng/mL B-Natriuretic Peptide (<100) PG/ML Total Protein 7.2 (6.4-8.2) g/dL Albumin 3.8 (3.4-5.0) g/dL Globulin 3.4 (2.6-4.0) g/dL Albumin/Globulin Ratio 1.1 (0.9-1.6) Lipase 21 L (73-393) U/L Digoxin 1.3 (0.9-2.0) ng/mL SARS-CoV-2 RNA (FELIPE) (NEGATIVE) 12/12/20 12/12/20 12/12/20 Range/Units 13:59 14:50 15:02 WBC (4.0-11.0) K/uL RBC (4.30-5.90) M/uL Hgb (12.0-16.0) g/dL Hct (36.0-46.0) % MCV (80.0-98.0) fL MCH (27.0-32.0) pg MCHC (31.0-37.0) g/dL RDW Std Deviation (28.0-62.0) fl RDW Coeff of Zaida (11.0-15.0) % Plt Count (150-400) K/uL MPV (7.40-12.00) fL Neut % (Auto) (48.0-80.0) % Lymph % (Auto) (16.0-40.0) % Meigs % (Auto) (0.0-15.0) % Eos % (Auto) (0.0-7.0) % Baso % (Auto) (0.0-1.5) % Neut # (Auto) (1.4-5.7) K/uL Lymph # (Auto) (0.6-2.4) K/uL Meigs # (Auto) (0.0-0.8) K/uL Eos # (Auto) (0.0-0.7) K/uL Baso # (Auto) (0.0-0.1) K/uL Nucleated RBC % /100WBC Nucleated RBCs # K/uL INR Sodium (136-145) mmol/L Potassium (3.5-5.1) mmol/L Chloride (98-107) mmol/L Carbon Dioxide (21.0-32.0) mmol/L BUN (7.0-18.0) mg/dL Creatinine (0.6-1.0) mg/dL Est Cr Clr Drug Dosing Estimated GFR (MDRD) ml/min Glucose (74-106) mg/dL Lactic Acid 2.6 H* (0.4-2.0) mmol/L Calcium (8.5-10.1) mg/dL Total Bilirubin (0.2-1.0) mg/dL AST (15-37) IU/L ALT (14-63) IU/L Alkaline Phosphatase (46-116) U/L Creatine Kinase (26-308) U/L Troponin I (0.000-0.056) ng/mL B-Natriuretic Peptide 106 H (<100) PG/ML Total Protein (6.4-8.2) g/dL Albumin (3.4-5.0) g/dL Globulin (2.6-4.0) g/dL Albumin/Globulin Ratio (0.9-1.6) Lipase (73-393) U/L Digoxin (0.9-2.0) ng/mL SARS-CoV-2 RNA (FELIPE) NEGATIVE (NEGATIVE) Result Diagrams: 12/12/20 13:59 12/12/20 13:59 - Problem List (1) Afib SNOMED Code(s): 19305420 ICD Code: I48.91 - UNSPECIFIED ATRIAL FIBRILLATION Status: Acute Current Visit: Yes (2) Closed T11 spinal fracture SNOMED Code(s): 321172543, 064810535 ICD Code: S22.089A - UNSP FRACTURE OF T11-T12 VERTEBRA, INIT FOR CLOS FX Status: Acute Current Visit: Yes (3) Dehydration SNOMED Code(s): 12643758 ICD Code: E86.0 - DEHYDRATION Status: Acute Current Visit: Yes (4) Leukocytosis SNOMED Code(s): 766760820, 194236516 ICD Code: D72.829 - ELEVATED WHITE BLOOD CELL COUNT, UNSPECIFIED Status: Acute Current Visit: Yes (5) Ambulatory dysfunction SNOMED Code(s): 783195411 ICD Code: R26.2 - DIFFICULTY IN WALKING, NOT ELSEWHERE CLASSIFIED Status: Acute Current Visit: No (6) Diabetes SNOMED Code(s): 39504615 ICD Code: E11.9 - TYPE 2 DIABETES MELLITUS WITHOUT COMPLICATIONS Status: Acute Current Visit: Yes (7) Fall SNOMED Code(s): 0667026 ICD Code: W19.XXXA - UNSPECIFIED FALL, INITIAL ENCOUNTER Status: Acute Current Visit: No Onset Date: 05/16/14 (8) HTN (hypertension) SNOMED Code(s): 26357721 ICD Code: I10 - ESSENTIAL (PRIMARY) HYPERTENSION Status: Acute Current Visit: Yes (9) Osteoarthritis SNOMED Code(s): 147583274 ICD Code: M19.90 - UNSPECIFIED OSTEOARTHRITIS, UNSPECIFIED SITE Status: Acute Current Visit: No Problem List Initiated/Reviewed/Updated: Yes Orders Last 24hrs: Active Orders 24 hr Category Date Time Status Admission Status [Patient Status] [ADT] Stat ADT 12/12/20 16:53 Active Cardiac Monitoring [RC] . DIRECTED Care 12/12/20 14:23 Active Pulse Oximetry [RC] ASDIRECTED Care 12/12/20 14:23 Active CULTURE BLOOD [BC] Stat Lab 12/12/20 14:55 Received CULTURE BLOOD [BC] Stat Lab 12/12/20 15:02 Received REFLEX LACTIC ACID YES OR NO [CHEM] Routine Lab 12/12/20 16:00 Received UA W/ALEJANDRA RFLX IF INDICATED [URIN] Stat Lab 12/12/20 14:24 Ordered UA W/MICROSCOPIC [URIN] Stat Lab 12/12/20 14:25 Ordered Sodium Chloride 0.9% [Saline Flush] Med 12/12/20 14:23 Active 10 ml FLUSH ASDIRECTED PRN Sodium Chloride 0.9% [Saline Flush] Med 12/12/20 14:23 Active 2.5 ml FLUSH ASDIRECTED PRN Blood Culture x2 Reflex Set [OM.PC] Stat Oth 12/12/20 14:24 Ordered Saline Lock Insert [OM.PC] Stat Oth 12/12/20 14:23 Ordered Medication Orders Sodium Chloride (Sodium Chloride 0.9% 10 Ml Syringe) 10 ml FLUSH ASDIRECTED PRN PRN Reason: Keep Vein Open Last Admin: 12/12/20 16:26 Dose: 10 ml Documented by: BEBO Sodium Chloride (Sodium Chloride 0.9% 2.5 Ml Syringe) 2.5 ml FLUSH ASDIRECTED PRN PRN Reason: Keep Vein Open Last Admin: 12/12/20 16:26 Dose: 2.5 ml Documented by: BEBO Assessment/Plan Comment:: Mechanical fall-per imaging appears to be T11 inferior endplate fracture nondisplaced, Physical therapy, morphine 2mg Q4h dehydration- LR 100mls/hr UTI- rocephin 1q24hr Hypomagnesemia-1.2, replete with 4 g mag sulfate, recheck magnesium in the morning Severe vitamin D deficiency-5.8. Start 5000 IU daily. A. fib- cardiac telemetry, resume home medications when reconciled. Holding BP meds as BP is 107 systolic.
[2020-12-12] MEDS ORDERED: 50% Dextrose in Water 50 ML Syringe IVPUSH PRN ×2 (17:58→22:21)
[2020-12-12] MEDS ORDERED: Glucagon,Human Recombinant 1 MG Vial IM PRN ×2 (17:58→22:21)
[2020-12-12] MEDS ORDERED: Magnesium Sulfate/Water 4 GM in Premix Bag 1 BAG IV ONE (19:16)
[2020-12-12] MEDS: Acetaminophen 325 MG Tab PO PRN (20:32)
[2020-12-12] MEDS: Lactated Ringers 1,000 ML IV SCH (20:38)
[2020-12-13] MEDS: Morphine 2 MG/ML SYRINGE IVPUSH PRN ×3 (00:51→09:29)
[2020-12-13 06:09] LABS: CARBON DIOXIDE,CO2 34.1 mmol/L (21.0-32.0); POTASSIUM,K 4.8 mmol/L (3.5-5.1)
[2020-12-13] MEDS: Insulin Aspart 100 Units/ML 3 ML Pen SUBCUT SCH ×3 (07:49→16:53)
[2020-12-13] MEDS: Acetaminophen 325 MG Tab PO PRN ×2 (08:14→19:31)
[2020-12-13] MEDS: Cholecalciferol (Vitamin D3) 25 MCG Tab PO SCH (08:14)
[2020-12-13] MEDS: Lactated Ringers 1,000 ML IV SCH ×2 (08:16→19:39)
[2020-12-13] MEDS: DULoxetine 30 MG Cap PO SCH (08:16)
[2020-12-13] MEDS: Gabapentin 300 MG Cap PO SCH ×2 (13:51→23:12)
[2020-12-13] MEDS: Acetaminophen/oxyCODONE 325-5 MG Tab PO PRN ×2 (13:53→23:18)
[2020-12-13] MEDS ORDERED: Warfarin 2.5 MG Tab PO SCH (14:00)
[2020-12-13] MEDS ORDERED: Warfarin 2 MG Tab PO SCH (14:00)
--- NOTE | 2020-12-13 14:37 | PCM.PN ---
- General Info Date of Service: 12/13/20 Subjective Update: Patient still complains of lower back pain this morning but is improved with morphine. Patient states she was able to get out of bed and use the commode with the assistance of a walker. - Review of Systems General: Denies: Fever, Chills Pulmonary: Denies: Shortness of Breath, Cough Cardiovascular: Denies: Chest Pain, Dyspnea on Exertion Gastrointestinal: Denies: Abdominal Pain, Decreased Appetite, Nausea, Vomiting Musculoskeletal: Reports: Back Pain (lower back) Neurological: Denies: Confusion, Dizziness, Headache - Patient Data Vitals - Most Recent: Last Vital Signs Temp 97.4 F 12/13/20 11:30 Pulse 92 12/13/20 11:30 Resp 20 12/13/20 11:30 BP 114/59 L 12/13/20 11:30 Pulse Ox 95 12/13/20 11:30 Weight - Most Recent: 165 lb I&O - Last 24 Hours: Intake & Output 12/12/20 12/13/20 12/13/20 22:59 06:59 14:59 Intake Total 500 Output Total 0 Balance 500 Lab Results Last 24 Hours: Laboratory Results - last 24 hr 12/12/20 12/12/20 12/12/20 Range/Units 13:59 13:59 13:59 WBC 16.42 H (4.0-11.0) K/uL RBC 5.00 (4.30-5.90) M/uL Hgb 16.2 H (12.0-16.0) g/dL Hct 47.0 H (36.0-46.0) % MCV 94.0 (80.0-98.0) fL MCH 32.4 H (27.0-32.0) pg MCHC 34.5 (31.0-37.0) g/dL RDW Std Deviation 48.0 (28.0-62.0) fl RDW Coeff of Zaida 14 (11.0-15.0) % Plt Count 154 (150-400) K/uL MPV 11.40 (7.40-12.00) fL Neut % (Auto) 88.9 H (48.0-80.0) % Lymph % (Auto) 4.0 L (16.0-40.0) % Brule % (Auto) 6.9 (0.0-15.0) % Eos % (Auto) 0.1 (0.0-7.0) % Baso % (Auto) 0.1 (0.0-1.5) % Neut # (Auto) 14.6 H (1.4-5.7) K/uL Lymph # (Auto) 0.7 (0.6-2.4) K/uL Brule # (Auto) 1.1 H (0.0-0.8) K/uL Eos # (Auto) 0.0 (0.0-0.7) K/uL Baso # (Auto) 0.0 (0.0-0.1) K/uL Nucleated RBC % 0.0 /100WBC Nucleated RBCs # 0 K/uL INR 2.74 Sodium 139 (136-145) mmol/L Potassium 4.4 (3.5-5.1) mmol/L Chloride 99 (98-107) mmol/L Carbon Dioxide 31.2 (21.0-32.0) mmol/L BUN 28 H (7.0-18.0) mg/dL Creatinine 1.0 (0.6-1.0) mg/dL Est Cr Clr Drug Dosing TNP Estimated GFR (MDRD) 54.7 ml/min Glucose 158 H (74-106) mg/dL POC Glucose (70-99) mg/dL Lactic Acid (0.4-2.0) mmol/L Calcium 8.7 (8.5-10.1) mg/dL Magnesium (1.8-2.4) mg/dL Total Bilirubin 1.8 H (0.2-1.0) mg/dL AST 43 H (15-37) IU/L ALT 22 (14-63) IU/L Alkaline Phosphatase 98 (46-116) U/L Creatine Kinase 897 H (26-308) U/L Troponin I < 0.050 (0.000-0.056) ng/mL B-Natriuretic Peptide (<100) PG/ML Total Protein 7.2 (6.4-8.2) g/dL Albumin 3.8 (3.4-5.0) g/dL Globulin 3.4 (2.6-4.0) g/dL Albumin/Globulin Ratio 1.1 (0.9-1.6) Lipase 21 L (73-393) U/L Vitamin D 25-Hydroxy (30.0-100.0) ng/mL Urine Color Urine Appearance Urine pH (5.0-8.0) Ur Specific [place] (1.001-1.035) Urine Protein (NEGATIVE) mg/dL Urine Glucose (UA) (NEGATIVE) mg/dL Urine Ketones (NEGATIVE) mg/dL Urine Occult Blood (NEGATIVE) Urine Nitrite (NEGATIVE) Urine Bilirubin (NEGATIVE) Urine Urobilinogen (<2.0) EU/dL Ur Leukocyte Esterase (NEGATIVE) Urine RBC (0-2/HPF) Urine WBC (0-5/HPF) Ur Epithelial Cells (NONE-FEW) Urine Bacteria (NEGATIVE) Urine Mucus (NONE-MOD) Digoxin 1.3 (0.9-2.0) ng/mL SARS-CoV-2 RNA (FELIPE) (NEGATIVE) 12/12/20 12/12/20 12/12/20 Range/Units 13:59 13:59 14:50 WBC (4.0-11.0) K/uL RBC (4.30-5.90) M/uL Hgb (12.0-16.0) g/dL Hct (36.0-46.0) % MCV (80.0-98.0) fL MCH (27.0-32.0) pg MCHC (31.0-37.0) g/dL RDW Std Deviation (28.0-62.0) fl RDW Coeff of Zaida (11.0-15.0) % Plt Count (150-400) K/uL MPV (7.40-12.00) fL Neut % (Auto) (48.0-80.0) % Lymph % (Auto) (16.0-40.0) % Brule % (Auto) (0.0-15.0) % Eos % (Auto) (0.0-7.0) % Baso % (Auto) (0.0-1.5) % Neut # (Auto) (1.4-5.7) K/uL Lymph # (Auto) (0.6-2.4) K/uL Brule # (Auto) (0.0-0.8) K/uL Eos # (Auto) (0.0-0.7) K/uL Baso # (Auto) (0.0-0.1) K/uL Nucleated RBC % /100WBC Nucleated RBCs # K/uL INR Sodium (136-145) mmol/L Potassium (3.5-5.1) mmol/L Chloride (98-107) mmol/L Carbon Dioxide (21.0-32.0) mmol/L BUN (7.0-18.0) mg/dL Creatinine (0.6-1.0) mg/dL Est Cr Clr Drug Dosing Estimated GFR (MDRD) ml/min Glucose (74-106) mg/dL POC Glucose (70-99) mg/dL Lactic Acid (0.4-2.0) mmol/L Calcium (8.5-10.1) mg/dL Magnesium 1.2 L (1.8-2.4) mg/dL Total Bilirubin (0.2-1.0) mg/dL AST (15-37) IU/L ALT (14-63) IU/L Alkaline Phosphatase (46-116) U/L Creatine Kinase (26-308) U/L Troponin I (0.000-0.056) ng/mL B-Natriuretic Peptide 106 H (<100) PG/ML Total Protein (6.4-8.2) g/dL Albumin (3.4-5.0) g/dL Globulin (2.6-4.0) g/dL Albumin/Globulin Ratio (0.9-1.6) Lipase (73-393) U/L Vitamin D 25-Hydroxy < 5.8 L (30.0-100.0) ng/mL Urine Color Urine Appearance Urine pH (5.0-8.0) Ur Specific [place] (1.001-1.035) Urine Protein (NEGATIVE) mg/dL Urine Glucose (UA) (NEGATIVE) mg/dL Urine Ketones (NEGATIVE) mg/dL Urine Occult Blood (NEGATIVE) Urine Nitrite (NEGATIVE) Urine Bilirubin (NEGATIVE) Urine Urobilinogen (<2.0) EU/dL Ur Leukocyte Esterase (NEGATIVE) Urine RBC (0-2/HPF) Urine WBC (0-5/HPF) Ur Epithelial Cells (NONE-FEW) Urine Bacteria (NEGATIVE) Urine Mucus (NONE-MOD) Digoxin (0.9-2.0) ng/mL SARS-CoV-2 RNA (FELIPE) NEGATIVE (NEGATIVE) 12/12/20 12/12/20 12/12/20 Range/Units 15:02 18:05 20:15 WBC (4.0-11.0) K/uL RBC (4.30-5.90) M/uL Hgb (12.0-16.0) g/dL Hct (36.0-46.0) % MCV (80.0-98.0) fL MCH (27.0-32.0) pg MCHC (31.0-37.0) g/dL RDW Std Deviation (28.0-62.0) fl RDW Coeff of Zaida (11.0-15.0) % Plt Count (150-400) K/uL MPV (7.40-12.00) fL Neut % (Auto) (48.0-80.0) % Lymph % (Auto) (16.0-40.0) % Brule % (Auto) (0.0-15.0) % Eos % (Auto) (0.0-7.0) % Baso % (Auto) (0.0-1.5) % Neut # (Auto) (1.4-5.7) K/uL Lymph # (Auto) (0.6-2.4) K/uL Brule # (Auto) (0.0-0.8) K/uL Eos # (Auto) (0.0-0.7) K/uL Baso # (Auto) (0.0-0.1) K/uL Nucleated RBC % /100WBC Nucleated RBCs # K/uL INR Sodium (136-145) mmol/L Potassium (3.5-5.1) mmol/L Chloride (98-107) mmol/L Carbon Dioxide (21.0-32.0) mmol/L BUN (7.0-18.0) mg/dL Creatinine (0.6-1.0) mg/dL Est Cr Clr Drug Dosing Estimated GFR (MDRD) ml/min Glucose (74-106) mg/dL POC Glucose (70-99) mg/dL Lactic Acid 2.6 H* 1.4 (0.4-2.0) mmol/L Calcium (8.5-10.1) mg/dL Magnesium (1.8-2.4) mg/dL Total Bilirubin (0.2-1.0) mg/dL AST (15-37) IU/L ALT (14-63) IU/L Alkaline Phosphatase (46-116) U/L Creatine Kinase (26-308) U/L Troponin I (0.000-0.056) ng/mL B-Natriuretic Peptide (<100) PG/ML Total Protein (6.4-8.2) g/dL Albumin (3.4-5.0) g/dL Globulin (2.6-4.0) g/dL Albumin/Globulin Ratio (0.9-1.6) Lipase (73-393) U/L Vitamin D 25-Hydroxy (30.0-100.0) ng/mL Urine Color YELLOW Urine Appearance SLT CLOUDY Urine pH 6.0 (5.0-8.0) Ur Specific [place] 1.010 (1.001-1.035) Urine Protein NEGATIVE (NEGATIVE) mg/dL Urine Glucose (UA) NEGATIVE (NEGATIVE) mg/dL Urine Ketones 15 H (NEGATIVE) mg/dL Urine Occult Blood TRACE-INTACT H (NEGATIVE) Urine Nitrite NEGATIVE (NEGATIVE) Urine Bilirubin NEGATIVE (NEGATIVE) Urine Urobilinogen 0.2 (<2.0) EU/dL Ur Leukocyte Esterase MODERATE H (NEGATIVE) Urine RBC 2-5 (0-2/HPF) Urine WBC 2-5 (0-5/HPF) Ur Epithelial Cells FEW (NONE-FEW) Urine Bacteria RARE (NEGATIVE) Urine Mucus LIGHT (NONE-MOD) Digoxin (0.9-2.0) ng/mL SARS-CoV-2 RNA (FELIPE) (NEGATIVE) 12/12/20 12/13/20 12/13/20 Range/Units 21:38 05:10 05:10 WBC 12.01 H (4.0-11.0) K/uL RBC 4.61 (4.30-5.90) M/uL Hgb 14.6 (12.0-16.0) g/dL Hct 43.3 (36.0-46.0) % MCV 93.9 (80.0-98.0) fL MCH 31.7 (27.0-32.0) pg MCHC 33.7 (31.0-37.0) g/dL RDW Std Deviation 48.1 (28.0-62.0) fl RDW Coeff of Zaida 14 (11.0-15.0) % Plt Count 172 (150-400) K/uL MPV 11.80 (7.40-12.00) fL Neut % (Auto) 73.3 (48.0-80.0) % Lymph % (Auto) 12.4 L (16.0-40.0) % Brule % (Auto) 14.0 (0.0-15.0) % Eos % (Auto) 0.1 (0.0-7.0) % Baso % (Auto) 0.2 (0.0-1.5) % Neut # (Auto) 8.8 H (1.4-5.7) K/uL Lymph # (Auto) 1.5 (0.6-2.4) K/uL Brule # (Auto) 1.7 H (0.0-0.8) K/uL Eos # (Auto) 0.0 (0.0-0.7) K/uL Baso # (Auto) 0.0 (0.0-0.1) K/uL Nucleated RBC % 0.0 /100WBC Nucleated RBCs # 0 K/uL INR Sodium 138 (136-145) mmol/L Potassium 4.8 (3.5-5.1) mmol/L Chloride 100 (98-107) mmol/L Carbon Dioxide 34.1 H (21.0-32.0) mmol/L BUN 21 H (7.0-18.0) mg/dL Creatinine 1.0 (0.6-1.0) mg/dL Est Cr Clr Drug Dosing 46.43 Estimated GFR (MDRD) 54.7 ml/min Glucose 146 H (74-106) mg/dL POC Glucose 197 H (70-99) mg/dL Lactic Acid (0.4-2.0) mmol/L Calcium 8.5 (8.5-10.1) mg/dL Magnesium 2.2 (1.8-2.4) mg/dL Total Bilirubin (0.2-1.0) mg/dL AST (15-37) IU/L ALT (14-63) IU/L Alkaline Phosphatase (46-116) U/L Creatine Kinase (26-308) U/L Troponin I (0.000-0.056) ng/mL B-Natriuretic Peptide (<100) PG/ML Total Protein (6.4-8.2) g/dL Albumin (3.4-5.0) g/dL Globulin (2.6-4.0) g/dL Albumin/Globulin Ratio (0.9-1.6) Lipase (73-393) U/L Vitamin D 25-Hydroxy (30.0-100.0) ng/mL Urine Color Urine Appearance Urine pH (5.0-8.0) Ur Specific [place] (1.001-1.035) Urine Protein (NEGATIVE) mg/dL Urine Glucose (UA) (NEGATIVE) mg/dL Urine Ketones (NEGATIVE) mg/dL Urine Occult Blood (NEGATIVE) Urine Nitrite (NEGATIVE) Urine Bilirubin (NEGATIVE) Urine Urobilinogen (<2.0) EU/dL Ur Leukocyte Esterase (NEGATIVE) Urine RBC (0-2/HPF) Urine WBC (0-5/HPF) Ur Epithelial Cells (NONE-FEW) Urine Bacteria (NEGATIVE) Urine Mucus (NONE-MOD) Digoxin (0.9-2.0) ng/mL SARS-CoV-2 RNA (FELIPE) (NEGATIVE) 12/13/20 12/13/20 Range/Units 06:44 11:50 WBC (4.0-11.0) K/uL RBC (4.30-5.90) M/uL Hgb (12.0-16.0) g/dL Hct (36.0-46.0) % MCV (80.0-98.0) fL MCH (27.0-32.0) pg MCHC (31.0-37.0) g/dL RDW Std Deviation (28.0-62.0) fl RDW Coeff of Zaida (11.0-15.0) % Plt Count (150-400) K/uL MPV (7.40-12.00) fL Neut % (Auto) (48.0-80.0) % Lymph % (Auto) (16.0-40.0) % Brule % (Auto) (0.0-15.0) % Eos % (Auto) (0.0-7.0) % Baso % (Auto) (0.0-1.5) % Neut # (Auto) (1.4-5.7) K/uL Lymph # (Auto) (0.6-2.4) K/uL Brule # (Auto) (0.0-0.8) K/uL Eos # (Auto) (0.0-0.7) K/uL Baso # (Auto) (0.0-0.1) K/uL Nucleated RBC % /100WBC Nucleated RBCs # K/uL INR Sodium (136-145) mmol/L Potassium (3.5-5.1) mmol/L Chloride (98-107) mmol/L Carbon Dioxide (21.0-32.0) mmol/L BUN (7.0-18.0) mg/dL Creatinine (0.6-1.0) mg/dL Est Cr Clr Drug Dosing Estimated GFR (MDRD) ml/min Glucose (74-106) mg/dL POC Glucose 118 H 177 H (70-99) mg/dL Lactic Acid (0.4-2.0) mmol/L Calcium (8.5-10.1) mg/dL Magnesium (1.8-2.4) mg/dL Total Bilirubin (0.2-1.0) mg/dL AST (15-37) IU/L ALT (14-63) IU/L Alkaline Phosphatase (46-116) U/L Creatine Kinase (26-308) U/L Troponin I (0.000-0.056) ng/mL B-Natriuretic Peptide (<100) PG/ML Total Protein (6.4-8.2) g/dL Albumin (3.4-5.0) g/dL Globulin (2.6-4.0) g/dL Albumin/Globulin Ratio (0.9-1.6) Lipase (73-393) U/L Vitamin D 25-Hydroxy (30.0-100.0) ng/mL Urine Color Urine Appearance Urine pH (5.0-8.0) Ur Specific [place] (1.001-1.035) Urine Protein (NEGATIVE) mg/dL Urine Glucose (UA) (NEGATIVE) mg/dL Urine Ketones (NEGATIVE) mg/dL Urine Occult Blood (NEGATIVE) Urine Nitrite (NEGATIVE) Urine Bilirubin (NEGATIVE) Urine Urobilinogen (<2.0) EU/dL Ur Leukocyte Esterase (NEGATIVE) Urine RBC (0-2/HPF) Urine WBC (0-5/HPF) Ur Epithelial Cells (NONE-FEW) Urine Bacteria (NEGATIVE) Urine Mucus (NONE-MOD) Digoxin (0.9-2.0) ng/mL SARS-CoV-2 RNA (FELIPE) (NEGATIVE) Med Orders - Current: Current Medications Acetaminophen (Acetaminophen 325 Mg Tab) 650 mg PO Q4H PRN PRN Reason: Pain (Mild 1-3)/fever Last Admin: 12/13/20 08:14 Dose: 650 mg Documented by: Cholecalciferol (Cholecalciferol (Vitamin D3) 25 Mcg Tab) 125 mcg PO DAILY [facility] Last Admin: 12/13/20 08:14 Dose: 125 mcg Documented by: Dextrose/Water (50% Dextrose In Water 50 Ml Syringe) 50 ml IVPUSH ASDIRECTED PRN PRN Reason: Hypoglycemia Digoxin (Digoxin 250 Mcg Tab) 250 mcg PO SUMOWEFR [facility] Duloxetine HCl (Duloxetine 30 Mg Cap) 90 mg PO DAILY [facility] Last Admin: 12/13/20 08:16 Dose: 90 mg Documented by: Gabapentin (Gabapentin 300 Mg Cap) 600 mg PO TID [facility] Last Admin: 12/13/20 13:51 Dose: 600 mg Documented by: Glucagon (Glucagon,Human Recombinant 1 Mg Vial) 1 mg IM ASDIRECTED PRN PRN Reason: Hypoglycemia Ceftriaxone Sodium/Dextrose 1 (gm/ Premix) 50 mls @ 100 mls/hr IV Q24H [facility] Lactated Ringer's (Ringers, Lactated) 1,000 mls @ 100 mls/hr IV ASDIRECTED [facility] Last Admin: 12/13/20 08:16 Dose: 100 mls/hr Documented by: Insulin Aspart (Insulin Aspart 100 Units/Ml 3 Ml Pen) 0 unit SUBCUT TIDAC [facility]; Protocol Last Admin: 12/13/20 12:49 Dose: 2 units Documented by: Insulin Glargine (Insulin Glargine,Human Rec. Analog 100 Units/Ml 3 Ml Pen) 24 units SUBCUT BEDTIME [facility] Metoprolol Succinate (Metoprolol Succinate 100 Mg Tab.Er) 50 mg PO BEDTIME [facility] Oxycodone/Acetaminophen (Acetaminophen/Oxycodone 325-5 Mg Tab) 1 tab PO Q8H PRN PRN Reason: Pain Last Admin: 12/13/20 13:53 Dose: 1 tab Documented by: Sodium Chloride (Sodium Chloride 0.9% 10 Ml Syringe) 10 ml FLUSH ASDIRECTED PRN PRN Reason: Keep Vein Open Last Admin: 12/12/20 16:26 Dose: 10 ml Documented by: Sodium Chloride (Sodium Chloride 0.9% 2.5 Ml Syringe) 2.5 ml FLUSH ASDIRECTED PRN PRN Reason: Keep Vein Open Last Admin: 12/12/20 16:26 Dose: 2.5 ml Documented by: Warfarin Sodium (Warfarin 2 Mg Tab) 3 mg PO SuMoTuWeThSa@1400 [facility] Warfarin Sodium (Warfarin 2.5 Mg Tab) 2.5 mg PO Fr@1400 [facility] Last Admin: 12/13/20 13:51 Dose: 2.5 mg Documented by: Warfarin Sodium (Warfarin 2 Mg Tab) 2 mg PO Fr@1400 [facility] Last Admin: 12/13/20 13:52 Dose: 2 mg Documented by: Discontinued Medications Ceftriaxone Sodium/Dextrose 1 (gm/ Premix) 50 mls @ 100 mls/hr IV ONETIME ONE Stop: 12/12/20 15:58 Last Admin: 12/12/20 15:40 Dose: 100 mls/hr Documented by: Magnesium Sulfate 4 gm/ Premix 100 mls @ 50 mls/hr IV ONETIME ONE Stop: 12/12/20 21:15 Last Admin: 12/12/20 20:35 Dose: 50 mls/hr Documented by: Morphine Sulfate (Morphine 4 Mg/Ml Syringe) 4 mg IVPUSH ONETIME ONE Stop: 12/12/20 15:31 Last Admin: 12/12/20 15:39 Dose: 4 mg Documented by: Morphine Sulfate (Morphine 2 Mg/Ml Syringe) 2 mg IVPUSH Q4H PRN PRN Reason: Pain Last Admin: 12/13/20 09:29 Dose: 2 mg Documented by: - Exam General: Alert, Oriented Lungs: Clear to Auscultation, Normal Respiratory Effort Cardiovascular: Regular Rate, Regular Rhythm GI/Abdominal Exam: Soft, Non-Tender Back Exam: No: CVA Tenderness (L), CVA Tenderness (R) Extremities: No: No Pedal Edema Psy/Mental Status: Alert - Patient Data Lab Results Last 24 hrs: Laboratory Results - last 24 hr 12/12/20 12/12/20 12/12/20 Range/Units 13:59 13:59 13:59 WBC 16.42 H (4.0-11.0) K/uL RBC 5.00 (4.30-5.90) M/uL Hgb 16.2 H (12.0-16.0) g/dL Hct 47.0 H (36.0-46.0) % MCV 94.0 (80.0-98.0) fL MCH 32.4 H (27.0-32.0) pg MCHC 34.5 (31.0-37.0) g/dL RDW Std Deviation 48.0 (28.0-62.0) fl RDW Coeff of Zaida 14 (11.0-15.0) % Plt Count 154 (150-400) K/uL MPV 11.40 (7.40-12.00) fL Neut % (Auto) 88.9 H (48.0-80.0) % Lymph % (Auto) 4.0 L (16.0-40.0) % Brule % (Auto) 6.9 (0.0-15.0) % Eos % (Auto) 0.1 (0.0-7.0) % Baso % (Auto) 0.1 (0.0-1.5) % Neut # (Auto) 14.6 H (1.4-5.7) K/uL Lymph # (Auto) 0.7 (0.6-2.4) K/uL Brule # (Auto) 1.1 H (0.0-0.8) K/uL Eos # (Auto) 0.0 (0.0-0.7) K/uL Baso # (Auto) 0.0 (0.0-0.1) K/uL Nucleated RBC % 0.0 /100WBC Nucleated RBCs # 0 K/uL INR 2.74 Sodium 139 (136-145) mmol/L Potassium 4.4 (3.5-5.1) mmol/L Chloride 99 (98-107) mmol/L Carbon Dioxide 31.2 (21.0-32.0) mmol/L BUN 28 H (7.0-18.0) mg/dL Creatinine 1.0 (0.6-1.0) mg/dL Est Cr Clr Drug Dosing TNP Estimated GFR (MDRD) 54.7 ml/min Glucose 158 H (74-106) mg/dL POC Glucose (70-99) mg/dL Lactic Acid (0.4-2.0) mmol/L Calcium 8.7 (8.5-10.1) mg/dL Magnesium (1.8-2.4) mg/dL Total Bilirubin 1.8 H (0.2-1.0) mg/dL AST 43 H (15-37) IU/L ALT 22 (14-63) IU/L Alkaline Phosphatase 98 (46-116) U/L Creatine Kinase 897 H (26-308) U/L Troponin I < 0.050 (0.000-0.056) ng/mL B-Natriuretic Peptide (<100) PG/ML Total Protein 7.2 (6.4-8.2) g/dL Albumin 3.8 (3.4-5.0) g/dL Globulin 3.4 (2.6-4.0) g/dL Albumin/Globulin Ratio 1.1 (0.9-1.6) Lipase 21 L (73-393) U/L Vitamin D 25-Hydroxy (30.0-100.0) ng/mL Urine Color Urine Appearance Urine pH (5.0-8.0) Ur Specific [place] (1.001-1.035) Urine Protein (NEGATIVE) mg/dL Urine Glucose (UA) (NEGATIVE) mg/dL Urine Ketones (NEGATIVE) mg/dL Urine Occult Blood (NEGATIVE) Urine Nitrite (NEGATIVE) Urine Bilirubin (NEGATIVE) Urine Urobilinogen (<2.0) EU/dL Ur Leukocyte Esterase (NEGATIVE) Urine RBC (0-2/HPF) Urine WBC (0-5/HPF) Ur Epithelial Cells (NONE-FEW) Urine Bacteria (NEGATIVE) Urine Mucus (NONE-MOD) Digoxin 1.3 (0.9-2.0) ng/mL SARS-CoV-2 RNA (FELIPE) (NEGATIVE) 12/12/20 12/12/20 12/12/20 Range/Units 13:59 13:59 14:50 WBC (4.0-11.0) K/uL RBC (4.30-5.90) M/uL Hgb (12.0-16.0) g/dL Hct (36.0-46.0) % MCV (80.0-98.0) fL MCH (27.0-32.0) pg MCHC (31.0-37.0) g/dL RDW Std Deviation (28.0-62.0) fl RDW Coeff of Zaida (11.0-15.0) % Plt Count (150-400) K/uL MPV (7.40-12.00) fL Neut % (Auto) (48.0-80.0) % Lymph % (Auto) (16.0-40.0) % Brule % (Auto) (0.0-15.0) % Eos % (Auto) (0.0-7.0) % Baso % (Auto) (0.0-1.5) % Neut # (Auto) (1.4-5.7) K/uL Lymph # (Auto) (0.6-2.4) K/uL Brule # (Auto) (0.0-0.8) K/uL Eos # (Auto) (0.0-0.7) K/uL Baso # (Auto) (0.0-0.1) K/uL Nucleated RBC % /100WBC Nucleated RBCs # K/uL INR Sodium (136-145) mmol/L Potassium (3.5-5.1) mmol/L Chloride (98-107) mmol/L Carbon Dioxide (21.0-32.0) mmol/L BUN (7.0-18.0) mg/dL Creatinine (0.6-1.0) mg/dL Est Cr Clr Drug Dosing Estimated GFR (MDRD) ml/min Glucose (74-106) mg/dL POC Glucose (70-99) mg/dL Lactic Acid (0.4-2.0) mmol/L Calcium (8.5-10.1) mg/dL Magnesium 1.2 L (1.8-2.4) mg/dL Total Bilirubin (0.2-1.0) mg/dL AST (15-37) IU/L ALT (14-63) IU/L Alkaline Phosphatase (46-116) U/L Creatine Kinase (26-308) U/L Troponin I (0.000-0.056) ng/mL B-Natriuretic Peptide 106 H (<100) PG/ML Total Protein (6.4-8.2) g/dL Albumin (3.4-5.0) g/dL Globulin (2.6-4.0) g/dL Albumin/Globulin Ratio (0.9-1.6) Lipase (73-393) U/L Vitamin D 25-Hydroxy < 5.8 L (30.0-100.0) ng/mL Urine Color Urine Appearance Urine pH (5.0-8.0) Ur Specific [place] (1.001-1.035) Urine Protein (NEGATIVE) mg/dL Urine Glucose (UA) (NEGATIVE) mg/dL Urine Ketones (NEGATIVE) mg/dL Urine Occult Blood (NEGATIVE) Urine Nitrite (NEGATIVE) Urine Bilirubin (NEGATIVE) Urine Urobilinogen (<2.0) EU/dL Ur Leukocyte Esterase (NEGATIVE) Urine RBC (0-2/HPF) Urine WBC (0-5/HPF) Ur Epithelial Cells (NONE-FEW) Urine Bacteria (NEGATIVE) Urine Mucus (NONE-MOD) Digoxin (0.9-2.0) ng/mL SARS-CoV-2 RNA (FELIPE) NEGATIVE (NEGATIVE) 12/12/20 12/12/20 12/12/20 Range/Units 15:02 18:05 20:15 WBC (4.0-11.0) K/uL RBC (4.30-5.90) M/uL Hgb (12.0-16.0) g/dL Hct (36.0-46.0) % MCV (80.0-98.0) fL MCH (27.0-32.0) pg MCHC (31.0-37.0) g/dL RDW Std Deviation (28.0-62.0) fl RDW Coeff of Zaida (11.0-15.0) % Plt Count (150-400) K/uL MPV (7.40-12.00) fL Neut % (Auto) (48.0-80.0) % Lymph % (Auto) (16.0-40.0) % Brule % (Auto) (0.0-15.0) % Eos % (Auto) (0.0-7.0) % Baso % (Auto) (0.0-1.5) % Neut # (Auto) (1.4-5.7) K/uL Lymph # (Auto) (0.6-2.4) K/uL Brule # (Auto) (0.0-0.8) K/uL Eos # (Auto) (0.0-0.7) K/uL Baso # (Auto) (0.0-0.1) K/uL Nucleated RBC % /100WBC Nucleated RBCs # K/uL INR Sodium (136-145) mmol/L Potassium (3.5-5.1) mmol/L Chloride (98-107) mmol/L Carbon Dioxide (21.0-32.0) mmol/L BUN (7.0-18.0) mg/dL Creatinine (0.6-1.0) mg/dL Est Cr Clr Drug Dosing Estimated GFR (MDRD) ml/min Glucose (74-106) mg/dL POC Glucose (70-99) mg/dL Lactic Acid 2.6 H* 1.4 (0.4-2.0) mmol/L Calcium (8.5-10.1) mg/dL Magnesium (1.8-2.4) mg/dL Total Bilirubin (0.2-1.0) mg/dL AST (15-37) IU/L ALT (14-63) IU/L Alkaline Phosphatase (46-116) U/L Creatine Kinase (26-308) U/L Troponin I (0.000-0.056) ng/mL B-Natriuretic Peptide (<100) PG/ML Total Protein (6.4-8.2) g/dL Albumin (3.4-5.0) g/dL Globulin (2.6-4.0) g/dL Albumin/Globulin Ratio (0.9-1.6) Lipase (73-393) U/L Vitamin D 25-Hydroxy (30.0-100.0) ng/mL Urine Color YELLOW Urine Appearance SLT CLOUDY Urine pH 6.0 (5.0-8.0) Ur Specific [place] 1.010 (1.001-1.035) Urine Protein NEGATIVE (NEGATIVE) mg/dL Urine Glucose (UA) NEGATIVE (NEGATIVE) mg/dL Urine Ketones 15 H (NEGATIVE) mg/dL Urine Occult Blood TRACE-INTACT H (NEGATIVE) Urine Nitrite NEGATIVE (NEGATIVE) Urine Bilirubin NEGATIVE (NEGATIVE) Urine Urobilinogen 0.2 (<2.0) EU/dL Ur Leukocyte Esterase MODERATE H (NEGATIVE) Urine RBC 2-5 (0-2/HPF) Urine WBC 2-5 (0-5/HPF) Ur Epithelial Cells FEW (NONE-FEW) Urine Bacteria RARE (NEGATIVE) Urine Mucus LIGHT (NONE-MOD) Digoxin (0.9-2.0) ng/mL SARS-CoV-2 RNA (FELIPE) (NEGATIVE) 12/12/20 12/13/20 12/13/20 Range/Units 21:38 05:10 05:10 WBC 12.01 H (4.0-11.0) K/uL RBC 4.61 (4.30-5.90) M/uL Hgb 14.6 (12.0-16.0) g/dL Hct 43.3 (36.0-46.0) % MCV 93.9 (80.0-98.0) fL MCH 31.7 (27.0-32.0) pg MCHC 33.7 (31.0-37.0) g/dL RDW Std Deviation 48.1 (28.0-62.0) fl RDW Coeff of Zaida 14 (11.0-15.0) % Plt Count 172 (150-400) K/uL MPV 11.80 (7.40-12.00) fL Neut % (Auto) 73.3 (48.0-80.0) % Lymph % (Auto) 12.4 L (16.0-40.0) % Brule % (Auto) 14.0 (0.0-15.0) % Eos % (Auto) 0.1 (0.0-7.0) % Baso % (Auto) 0.2 (0.0-1.5) % Neut # (Auto) 8.8 H (1.4-5.7) K/uL Lymph # (Auto) 1.5 (0.6-2.4) K/uL Brule # (Auto) 1.7 H (0.0-0.8) K/uL Eos # (Auto) 0.0 (0.0-0.7) K/uL Baso # (Auto) 0.0 (0.0-0.1) K/uL Nucleated RBC % 0.0 /100WBC Nucleated RBCs # 0 K/uL INR Sodium 138 (136-145) mmol/L Potassium 4.8 (3.5-5.1) mmol/L Chloride 100 (98-107) mmol/L Carbon Dioxide 34.1 H (21.0-32.0) mmol/L BUN 21 H (7.0-18.0) mg/dL Creatinine 1.0 (0.6-1.0) mg/dL Est Cr Clr Drug Dosing 46.43 Estimated GFR (MDRD) 54.7 ml/min Glucose 146 H (74-106) mg/dL POC Glucose 197 H (70-99) mg/dL Lactic Acid (0.4-2.0) mmol/L Calcium 8.5 (8.5-10.1) mg/dL Magnesium 2.2 (1.8-2.4) mg/dL Total Bilirubin (0.2-1.0) mg/dL AST (15-37) IU/L ALT (14-63) IU/L Alkaline Phosphatase (46-116) U/L Creatine Kinase (26-308) U/L Troponin I (0.000-0.056) ng/mL B-Natriuretic Peptide (<100) PG/ML Total Protein (6.4-8.2) g/dL Albumin (3.4-5.0) g/dL Globulin (2.6-4.0) g/dL Albumin/Globulin Ratio (0.9-1.6) Lipase (73-393) U/L Vitamin D 25-Hydroxy (30.0-100.0) ng/mL Urine Color Urine Appearance Urine pH (5.0-8.0) Ur Specific [place] (1.001-1.035) Urine Protein (NEGATIVE) mg/dL Urine Glucose (UA) (NEGATIVE) mg/dL Urine Ketones (NEGATIVE) mg/dL Urine Occult Blood (NEGATIVE) Urine Nitrite (NEGATIVE) Urine Bilirubin (NEGATIVE) Urine Urobilinogen (<2.0) EU/dL Ur Leukocyte Esterase (NEGATIVE) Urine RBC (0-2/HPF) Urine WBC (0-5/HPF) Ur Epithelial Cells (NONE-FEW) Urine Bacteria (NEGATIVE) Urine Mucus (NONE-MOD) Digoxin (0.9-2.0) ng/mL SARS-CoV-2 RNA (FELIPE) (NEGATIVE) 12/13/20 12/13/20 Range/Units 06:44 11:50 WBC (4.0-11.0) K/uL RBC (4.30-5.90) M/uL Hgb (12.0-16.0) g/dL Hct (36.0-46.0) % MCV (80.0-98.0) fL MCH (27.0-32.0) pg MCHC (31.0-37.0) g/dL RDW Std Deviation (28.0-62.0) fl RDW Coeff of Zaida (11.0-15.0) % Plt Count (150-400) K/uL MPV (7.40-12.00) fL Neut % (Auto) (48.0-80.0) % Lymph % (Auto) (16.0-40.0) % Bru[place] % (Auto) (0.0-15.0) % Eos % (Auto) (0.0-7.0) % Baso % (Auto) (0.0-1.5) % Neut # (Auto) (1.4-5.7) K/uL Lymph # (Auto) (0.6-2.4) K/uL [place] # (Auto) (0.0-0.8) K/uL Eos # (Auto) (0.0-0.7) K/uL Baso # (Auto) (0.0-0.1) K/uL Nucleated RBC % /100WBC Nucleated RBCs # K/uL INR Sodium (136-145) mmol/L Potassium (3.5-5.1) mmol/L Chloride (98-107) mmol/L Carbon Dioxide (21.0-32.0) mmol/L BUN (7.0-18.0) mg/dL Creatinine (0.6-1.0) mg/dL Est Cr Clr Drug Dosing Estimated GFR (MDRD) ml/min Glucose (74-106) mg/dL POC Glucose 118 H 177 H (70-99) mg/dL Lactic Acid (0.4-2.0) mmol/L Calcium (8.5-10.1) mg/dL Magnesium (1.8-2.4) mg/dL Total Bilirubin (0.2-1.0) mg/dL AST (15-37) IU/L ALT (14-63) IU/L Alkaline Phosphatase (46-116) U/L Creatine Kinase (26-308) U/L Troponin I (0.000-0.056) ng/mL B-Natriuretic Peptide (<100) PG/ML Total Protein (6.4-8.2) g/dL Albumin (3.4-5.0) g/dL Globulin (2.6-4.0) g/dL Albumin/Globulin Ratio (0.9-1.6) Lipase (73-393) U/L Vitamin D 25-Hydroxy (30.0-100.0) ng/mL Urine Color Urine Appearance Urine pH (5.0-8.0) Ur Specific [place] (1.001-1.035) Urine Protein (NEGATIVE) mg/dL Urine Glucose (UA) (NEGATIVE) mg/dL Urine Ketones (NEGATIVE) mg/dL Urine Occult Blood (NEGATIVE) Urine Nitrite (NEGATIVE) Urine Bilirubin (NEGATIVE) Urine Urobilinogen (<2.0) EU/dL Ur Leukocyte Esterase (NEGATIVE) Urine RBC (0-2/HPF) Urine WBC (0-5/HPF) Ur Epithelial Cells (NONE-FEW) Urine Bacteria (NEGATIVE) Urine Mucus (NONE-MOD) Digoxin (0.9-2.0) ng/mL SARS-CoV-2 RNA (FELIPE) (NEGATIVE) Result Diagrams: 12/13/20 05:10 12/13/20 05:10 Sepsis Event Note - Focused Exam Vital Signs: Vital Signs Temp Pulse Resp BP Pulse Ox 12/13/20 11:30 97.4 F 92 20 114/59 L 95 12/13/20 08:00 97.8 F 61 20 129/53 L 99 12/13/20 04:56 98 F 88 18 126/58 L 96 - Problem List & Annotations (1) Afib SNOMED Code(s): 51758674 Code(s): I48.91 - UNSPECIFIED ATRIAL FIBRILLATION Status: Acute Priority: Medium Current Visit: Yes (2) Closed T11 spinal fracture SNOMED Code(s): 314027871, 068730766 Code(s): S22.089A - UNSP FRACTURE OF T11-T12 VERTEBRA, INIT FOR CLOS FX Status: Acute Current Visit: Yes (3) Dehydration SNOMED Code(s): 57255385 Code(s): E86.0 - DEHYDRATION Status: Acute Current Visit: Yes (4) Leukocytosis SNOMED Code(s): 334739844, 161864423 Code(s): D72.829 - ELEVATED WHITE BLOOD CELL COUNT, UNSPECIFIED Status: Acute Current Visit: Yes (5) Ambulatory dysfunction SNOMED Code(s): 005460101 Code(s): R26.2 - DIFFICULTY IN WALKING, NOT ELSEWHERE CLASSIFIED Status: Acute Current Visit: No (6) Diabetes SNOMED Code(s): 28758096 Code(s): E11.9 - TYPE 2 DIABETES MELLITUS WITHOUT COMPLICATIONS Status: Acute Current Visit: Yes (7) Fall SNOMED Code(s): 4945397 Code(s): W19.XXXA - UNSPECIFIED FALL, INITIAL ENCOUNTER Status: Acute Current Visit: No Onset Date: 05/16/14 (8) HTN (hypertension) SNOMED Code(s): 25214651 Code(s): I10 - ESSENTIAL (PRIMARY) HYPERTENSION Status: Acute Current Visit: Yes (9) Osteoarthritis SNOMED Code(s): 938325622 Code(s): M19.90 - UNSPECIFIED OSTEOARTHRITIS, UNSPECIFIED SITE Status: Acute Current Visit: No - Problem List Review Problem List Initiated/Reviewed/Updated: Yes - My Orders Last 24 Hours: My Active Orders 12/12/20 Dinner [employer] Diet [DIET] 12/12/20 17:56 Oxygen Therapy [RC] PRN VTE/DVT Education [RC] PER UNIT ROUTINE Vital Signs [RC] Q4H PT Evaluation and Treatment [CONS] Routine Acetaminophen [TylenoL] 650 mg PO Q4H PRN 12/12/20 17:57 Antiembolic Devices [RC] PER UNIT ROUTINE Sequential Compression Device [OM.PC] Per Unit Routine 12/12/20 17:58 Dextrose 50% in Water 50 ml IVPUSH ASDIRECTED PRN Glucagon,Human Recombinant [GlucaGen] 1 mg IM ASDIRECTED PRN 12/12/20 17:59 Telemetry Monitoring [Cardiac Monitoring] [RC] Q8H 12/12/20 18:05 CULTURE URINE [MREF] Routine 12/12/20 19:30 Lactated Ringers [Ringers, Lactated] 1,000 ml IV ASDIRECTED 12/12/20 20:38 Accu Check [Blood Glucose Check, Bedside] [RC] WITHMEALSANDBED 12/12/20 21:41 Code Status [Resuscitation Status] Routine 12/13/20 07:30 Insulin Aspart [NovoLOG] See Protocol SUBCUT TIDAC 12/13/20 09:00 Cholecalciferol (Vitamin D3) [Vitamin D3] 125 mcg PO DAILY DULoxetine [Cymbalta] 90 mg PO DAILY 12/13/20 13:33 Acetaminophen/oxyCODONE [Percocet 325-5 MG] 1 tab PO Q8H PRN 12/13/20 14:00 Gabapentin [Neurontin] 600 mg PO TID Warfarin [Coumadin] 2 mg PO Fr@1400 Warfarin [Coumadin] 2.5 mg PO Fr@1400 12/13/20 15:00 cefTRIAXone [Rocephin in Dextrose,Iso-Osm 1 GM/50 ML] 1 gm Premix Bag 1 bag IV Q24H 12/13/20 21:00 Insulin Glarg,Human.Rec.Analog [LantUS Solostar] 24 units SUBCUT BEDTIME Metoprolol Succinate [Toprol XL] 50 mg PO BEDTIME 12/13/20 22:21 Digoxin [Lanoxin] 250 mcg PO SUMOWEFR 12/14/20 14:00 Warfarin [Coumadin] 3 mg PO SuMoTuWeThSa@1400 - Plan Plan:: Mechanical fall-per imaging appears to be T11 inferior endplate fracture nondisplaced, Physical therapy, Percocet 5mg Qhr8 dehydration- LR 100mls/hr UTI- rocephin 1q24hr Severe vitamin D deficiency-5.8. Start 5000 IU daily. A. fib- cardiac telemetry, resume home medications
[2020-12-13] MEDS: cefTRIAXone 1 GM in Premix Bag 1 BAG IV SCH (15:27)
[2020-12-13] MEDS ORDERED: Metoprolol Succinate 100 MG Tab.ER PO SCH (21:00)
[2020-12-13] MEDS ORDERED: Insulin Glargine,Human Rec. Analog 100 Units/ML 3 ML Pen SUBCUT SCH (21:00)
[2020-12-13] MEDS ORDERED: Docusate Sodium 100 MG Cap PO PRN (22:16)
[2020-12-13] MEDS ORDERED: Digoxin 250 MCG Tab PO SCH (22:21)
[2020-12-14] MEDS: Acetaminophen 325 MG Tab PO PRN (02:57)
[2020-12-14] MEDS: Lactated Ringers 1,000 ML IV SCH (06:10)
[2020-12-14] MEDS: Gabapentin 300 MG Cap PO SCH ×2 (06:28→14:04)
[2020-12-14] MEDS: Insulin Aspart 100 Units/ML 3 ML Pen SUBCUT SCH ×2 (06:54→12:16)
[2020-12-14] MEDS: Acetaminophen/oxyCODONE 325-5 MG Tab PO PRN (07:55)
[2020-12-14] MEDS: DULoxetine 30 MG Cap PO SCH (08:09)
[2020-12-14] MEDS: Cholecalciferol (Vitamin D3) 25 MCG Tab PO SCH (08:09)
[2020-12-14 08:19] LABS: BLOOD UREA NITROGEN,BUN 15 mg/dL (7.0-18.0); CARBON DIOXIDE,CO2 35.1 mmol/L (21.0-32.0); CHLORIDE,CL 101 mmol/L (98-107); GLUCOSE RANDOM 129 mg/dL (74-106); POTASSIUM,K 4.5 mmol/L (3.5-5.1); SODIUM,NA 137 mmol/L (136-145)
[2020-12-14] MEDS ORDERED: Digoxin 125 MCG Tab PO SCH (09:00)
[2020-12-14] MEDS ORDERED: Bacitracin Oint 1 GM U/D Packet TOP PRN (09:10)
[2020-12-14 09:36] LABS: HEMOGLOBIN A1C 5.8 %
[2020-12-14 12:15] VITALS: BP 103/56; PULSE 76
[2020-12-14] MEDS ORDERED: Warfarin 2 MG Tab PO SCH (14:00)
[2020-12-14] MEDS: cefTRIAXone 1 GM in Premix Bag 1 BAG IV SCH (14:05)
--- NOTE | 2020-12-14 15:23 | PCM.DCSUM1 ---
Discharge Summary - Hospital Course Free Text/Narrative:: 70-year-old female with past medical history of with PMH of Afib, Hypertension, Pulmonary hypertension, diabetes mellitus, OA presents to the ER due to a fall. Patient states waking up roughly 3 AM this morning at which point she attempted to go to the kitchen. Patient states that she believes her blood sugar was low causing her to get dizzy and falling. Patient states she was on the floor from 3 AM to 1:30 PM, at which point emergency services was contacted via family members and transported to the ED. patient was lightheaded and fell at 3 AM. Patient is not sure if she hit her head. Patient denies chest pain, cough, shortness of breath, headache, dizziness, abdominal pain, nausea, vomiting, diarrhea, dysuria, hematuria. Patient complains of moderate lower back pain with movement. Laboratory on admission to include white blood cell count 16.4, hemoglobin 16.2, platelet 154, sodium 139, potassium 4.4, BUN 28, creatinine 1.0, glucose 158, lactic acid 2.6, creatine kinase a 97. Abdomen pelvis CT impression nondisplaced fracture of the inferior endplate of T11, no acute traumatic intra-abdominal findings Cervical CT spine impression-no acute fracture or traumatic malalignment of the cervical spine, tissue swelling in the left periorbital region, left cheek Facial/sinus CT impressions-no acute fracture notified, mild soft tissue swelling left forehead, left periorbital region, left cheek and left anterior neck. Trace paranasal sinus mucosal thickening or fluid Head CT impression-no acute intracranial findings, no hemorrhage, no mass- effect, no evidence of acute infarct. Chronic small vessel ischemic disease. Chest x-ray impression-no focal consolidation, pleural effusion, new pneumothorax. Mild left atelectasis. No acute cardiopulmonary findings. Left shoulder x-ray impression-no sign of acute injury. No fracture or bone lesions, alignment is normal. Patient admitted for generalized weakness, fall secondary to suspected hypoglycemia, dehydration, suspected UTI. Treated with IV fluids, IV antibiotics, glucose management, physical therapy assessment, pain management. At discharge referral placed for HOME HEALTH, PT for strengthening. Patient also prescribed MiraLAX for constipation, cefdinir for UTI, hydrocodone for pain management, vitamin D3 for severe vitamin D deficiency. Patient to take medications as prescribed and discuss medications with primary care physician at next follow-up visit. - Discharge Data Discharge Date: 12/14/20 Discharge Disposition: Home, W Home Health Agency 06 Condition: Stable - Referral to Home Health Date of Face to Face Encounter: 12/14/20 Reason for Homebound Status: 70 F with deconditioning as patient spends most of her time at home in lift chair. On admission patient noted to have a non displaced fracture of T11, which may further limit mobility. Primary Care Physician: Lucio Mcgowan MD Skilled Need: PT - Discharge Diagnosis/Problem(s) (1) Afib SNOMED Code(s): 39025893 ICD Code: I48.91 - UNSPECIFIED ATRIAL FIBRILLATION Status: Acute Priority: Medium (2) Closed T11 spinal fracture SNOMED Code(s): 206212330, 263514447 ICD Code: S22.089A - UNSP FRACTURE OF T11-T12 VERTEBRA, INIT FOR CLOS FX Status: Acute (3) Dehydration SNOMED Code(s): 95785412 ICD Code: E86.0 - DEHYDRATION Status: Acute (4) Leukocytosis SNOMED Code(s): 346022289, 740444877 ICD Code: D72.829 - ELEVATED WHITE BLOOD CELL COUNT, UNSPECIFIED Status: Acute (5) Ambulatory dysfunction SNOMED Code(s): 448929786 ICD Code: R26.2 - DIFFICULTY IN WALKING, NOT ELSEWHERE CLASSIFIED Status: Acute (6) Diabetes SNOMED Code(s): 06987649 ICD Code: E11.9 - TYPE 2 DIABETES MELLITUS WITHOUT COMPLICATIONS Status: Acute (7) Fall SNOMED Code(s): 0376065 ICD Code: W19.XXXA - UNSPECIFIED FALL, INITIAL ENCOUNTER Status: Acute Onset Date: 05/16/14 (8) HTN (hypertension) SNOMED Code(s): 84137095 ICD Code: I10 - ESSENTIAL (PRIMARY) HYPERTENSION Status: Acute (9) Osteoarthritis SNOMED Code(s): 603754399 ICD Code: M19.90 - UNSPECIFIED OSTEOARTHRITIS, UNSPECIFIED SITE Status: Acute - Patient Summary/Data Consults: Consultations 12/12/20 17:56 PT Evaluation and Treatment [CONS] Routine - Patient Instructions Diet: Usual Diet as Tolerated Activity: As Tolerated Notify Provider of: Fever, Increased Pain, Swelling and Redness, Nausea and/or Vomiting Other/Special Instructions: HOME HEALTH, PT. On discharge he was prescribed MiraLAX for constipation, cefdinir for UTI, hydrocodone for pain management, vitamin D3. Please take medication as prescribed, please discuss medications with primary care physician at next follow-up visit. - Discharge Plan *PRESCRIPTION DRUG MONITORING PROGRAM REVIEWED*: Not Applicable *COPY OF PRESCRIPTION DRUG MONITORING REPORT IN PATIENT JIMMY: Not Applicable Prescriptions/Med Rec: Hydrocodone/Acetaminophen [HYDROcodone-Acetaminophen 5-325 MG] 1 each PO TID #12 tab polyethylene glycoL 3350 [MiraLAX] 17 gm PO BEDTIME #14 packet Cefdinir [Omnicef] 300 mg PO BID 5 Days #10 cap Cholecalciferol (Vitamin D3) [Vitamin D3] 5,000 unit PO DAILY #30 tablet Home Medications: Home Meds DULoxetine [Cymbalta] 90 mg PO DAILY 05/16/14 [History] Digoxin 125 mcg PO TUTHSA 05/16/14 [History] Digoxin 250 mcg PO SUMOWEFR 05/16/14 [History] Metoprolol Succinate [Toprol Xl] 50 mg PO BEDTIME 05/16/14 [History] metFORMIN [Glucophage] 1,000 mg PO BIDM 05/16/14 [History] Insulin Glarg,Human.Rec.Analog [Lantus Solostar] 24 unit SUBCUT BEDTIME 09/30/15 [History] Insulin Aspart [Novolog Flexpen] 23 units SQ ACDINNER 12/16/15 [History] Acetaminophen/Codeine [Tylenol with Codeine No.3 300MG/30MG] 1 tab PO Q4H PRN 01/19/20 [History] Gabapentin [Neurontin] 600 mg PO TID 01/19/20 [History] Warfarin [Coumadin] 3 mg PO DAILY 01/19/20 [History] Warfarin [Coumadin] 4.5 mg PO DAILY 01/19/20 [History] Furosemide [Lasix] 40 mg PO DAILY 02/19/20 [History] Potassium Chloride [Klor-Con M20] 20 meq PO DAILY 02/20/20 [History] Cefdinir [Omnicef] 300 mg PO BID 5 Days #10 cap 12/14/20 [Rx] Cholecalciferol (Vitamin D3) [Vitamin D3] 5,000 unit PO DAILY #30 tablet 12/14/20 [Rx] Hydrocodone/Acetaminophen [HYDROcodone-Acetaminophen 5-325 MG] 1 each PO TID #12 tab 12/14/20 [Rx] polyethylene glycoL 3350 [MiraLAX] 17 gm PO BEDTIME #14 packet 12/14/20 [Rx] Patient Handouts: Acetaminophen; Hydrocodone tablets or capsules, Fall Prevention in the Home, Adult, Tzhd-de-Dxke, Cefdinir Capsules, Vitamin D Oral Tablets and Capsules, Polyethylene Glycol Powder for Oral Solution Forms: ED Department Discharge Referrals: Fior Buenrostro NP [Nurse Practitioner] - 12/23/20 10:00 am - Discharge Summary/Plan Comment DC Time >30 min.: Yes Total # of Minutes for Discharge Time: 35 - General Info Date of Service: 12/14/20 - Review of Systems General: Denies: Fever, Chills Pulmonary: Denies: Shortness of Breath, Cough Cardiovascular: Denies: Chest Pain Gastrointestinal: Denies: Abdominal Pain, Nausea, Vomiting Musculoskeletal: Reports: Back Pain Neurological: Denies: Confusion, Dizziness - Patient Data Vitals - Most Recent: Last Vital Signs Temp 97.0 F 12/14/20 12:10 Pulse 76 12/14/20 12:10 Resp 16 12/14/20 12:10 BP 103/56 L 12/14/20 12:10 Pulse Ox 95 12/14/20 12:10 Weight - Most Recent: 165 lb I&O - Last 24 hours: Intake & Output 12/14/20 12/14/20 12/14/20 06:59 14:59 22:59 Intake Total 1611 Output Total 1000 Balance 611 Lab Results - Last 24 hrs: Laboratory Results - last 24 hr 12/13/20 12/14/20 12/14/20 Range/Units 20:43 06:27 07:20 WBC 7.66 (4.0-11.0) K/uL RBC 4.01 L (4.30-5.90) M/uL Hgb 12.7 (12.0-16.0) g/dL Hct 38.3 (36.0-46.0) % MCV 95.5 (80.0-98.0) fL MCH 31.7 (27.0-32.0) pg MCHC 33.2 (31.0-37.0) g/dL RDW Std Deviation 50.3 (28.0-62.0) fl RDW Coeff of Zaida 14 (11.0-15.0) % Plt Count 128 L (150-400) K/uL MPV 11.10 (7.40-12.00) fL Neut % (Auto) 63.6 (48.0-80.0) % Lymph % (Auto) 21.8 (16.0-40.0) % Weld % (Auto) 13.7 (0.0-15.0) % Eos % (Auto) 0.8 (0.0-7.0) % Baso % (Auto) 0.1 (0.0-1.5) % Neut # (Auto) 4.9 (1.4-5.7) K/uL Lymph # (Auto) 1.7 (0.6-2.4) K/uL Weld # (Auto) 1.1 H (0.0-0.8) K/uL Eos # (Auto) 0.1 (0.0-0.7) K/uL Baso # (Auto) 0.0 (0.0-0.1) K/uL Nucleated RBC % 0.0 /100WBC Nucleated RBCs # 0 K/uL Sodium (136-145) mmol/L Potassium (3.5-5.1) mmol/L Chloride (98-107) mmol/L Carbon Dioxide (21.0-32.0) mmol/L BUN (7.0-18.0) mg/dL Creatinine (0.6-1.0) mg/dL Est Cr Clr Drug Dosing mL/min Estimated GFR (MDRD) ml/min Glucose (74-106) mg/dL POC Glucose 163 H 132 H (70-99) mg/dL Hemoglobin A1c (4.5 - 6.2) % Calcium (8.5-10.1) mg/dL 12/14/20 12/14/20 12/14/20 Range/Units 07:20 07:20 11:31 WBC (4.0-11.0) K/uL RBC (4.30-5.90) M/uL Hgb (12.0-16.0) g/dL Hct (36.0-46.0) % MCV (80.0-98.0) fL MCH (27.0-32.0) pg MCHC (31.0-37.0) g/dL RDW Std Deviation (28.0-62.0) fl RDW Coeff of Zaida (11.0-15.0) % Plt Count (150-400) K/uL MPV (7.40-12.00) fL Neut % (Auto) (48.0-80.0) % Lymph % (Auto) (16.0-40.0) % Weld % (Auto) (0.0-15.0) % Eos % (Auto) (0.0-7.0) % Baso % (Auto) (0.0-1.5) % Neut # (Auto) (1.4-5.7) K/uL Lymph # (Auto) (0.6-2.4) K/uL Weld # (Auto) (0.0-0.8) K/uL Eos # (Auto) (0.0-0.7) K/uL Baso # (Auto) (0.0-0.1) K/uL Nucleated RBC % /100WBC Nucleated RBCs # K/uL Sodium 137 (136-145) mmol/L Potassium 4.5 (3.5-5.1) mmol/L Chloride 101 (98-107) mmol/L Carbon Dioxide 35.1 H (21.0-32.0) mmol/L BUN 15 (7.0-18.0) mg/dL Creatinine 0.9 (0.6-1.0) mg/dL Est Cr Clr Drug Dosing 51.59 mL/min Estimated GFR (MDRD) > 60.0 ml/min Glucose 129 H (74-106) mg/dL POC Glucose 132 H (70-99) mg/dL Hemoglobin A1c 5.8 (4.5 - 6.2) % Calcium 8.3 L (8.5-10.1) mg/dL ALEJANDRA Results - Last 24 hrs: Microbiology 12/12/20 15:02 Aerobic Blood Culture - Preliminary Blood - Venous - Lab Draw NO GROWTH AFTER 2 DAYS Anaerobic Blood Culture - Preliminary NO GROWTH AFTER 2 DAYS 12/12/20 14:55 Aerobic Blood Culture - Preliminary Blood - Venous NO GROWTH AFTER 2 DAYS Anaerobic Blood Culture - Preliminary NO GROWTH AFTER 2 DAYS Med Orders - Current: Current Medications Acetaminophen (Acetaminophen 325 Mg Tab) 650 mg PO Q4H PRN PRN Reason: Pain (Mild 1-3)/fever Last Admin: 12/14/20 02:57 Dose: 650 mg Documented by: Bacitracin (Bacitracin Oint 1 Gm U/D Packet) 1 dose TOP Q6HR PRN PRN Reason: Wound Care Cholecalciferol (Cholecalciferol (Vitamin D3) 25 Mcg Tab) 125 mcg PO DAILY [facility] Last Admin: 12/14/20 08:09 Dose: 125 mcg Documented by: Dextrose/Water (50% Dextrose In Water 50 Ml Syringe) 50 ml IVPUSH ASDIRECTED PRN PRN Reason: Hypoglycemia Digoxin (Digoxin 250 Mcg Tab) 250 mcg PO SUMOWEFR [facility] Last Admin: 12/13/20 23:11 Dose: 250 mcg Documented by: Digoxin (Digoxin 125 Mcg Tab) 125 mcg PO TUTHSA [facility] Last Admin: 12/14/20 09:58 Dose: 125 mcg Documented by: Docusate Sodium (Docusate Sodium 100 Mg Cap) 100 mg PO DAILY PRN PRN Reason: Constipation Last Admin: 12/13/20 23:11 Dose: 100 mg Documented by: Duloxetine HCl (Duloxetine 30 Mg Cap) 90 mg PO DAILY [facility] Last Admin: 12/14/20 08:09 Dose: 90 mg Documented by: Gabapentin (Gabapentin 300 Mg Cap) 600 mg PO TID [facility] Last Admin: 12/14/20 14:04 Dose: 600 mg Documented by: Glucagon (Glucagon,Human Recombinant 1 Mg Vial) 1 mg IM ASDIRECTED PRN PRN Reason: Hypoglycemia Ceftriaxone Sodium/Dextrose 1 (gm/ Premix) 50 mls @ 100 mls/hr IV Q24H [facility] Last Admin: 12/14/20 14:05 Dose: 100 mls/hr Documented by: Lactated Ringer's (Ringers, Lactated) 1,000 mls @ 100 mls/hr IV ASDIRECTED [facility] Last Admin: 12/14/20 06:10 Dose: 100 mls/hr Documented by: Insulin Aspart (Insulin Aspart 100 Units/Ml 3 Ml Pen) 0 unit SUBCUT TIDAC [facility]; Protocol Last Admin: 12/14/20 12:16 Dose: Not Given Documented by: Insulin Glargine (Insulin Glargine,Human Rec. Analog 100 Units/Ml 3 Ml Pen) 24 units SUBCUT BEDTIME [facility] Last Admin: 12/13/20 20:45 Dose: 24 units Documented by: Metoprolol Succinate (Metoprolol Succinate 100 Mg Tab.Er) 50 mg PO BEDTIME [facility] Last Admin: 12/13/20 20:53 Dose: 50 mg Documented by: Oxycodone/Acetaminophen (Acetaminophen/Oxycodone 325-5 Mg Tab) 1 tab PO Q8H PRN PRN Reason: Pain Last Admin: 12/14/20 07:55 Dose: 1 tab Documented by: Sodium Chloride (Sodium Chloride 0.9% 10 Ml Syringe) 10 ml FLUSH ASDIRECTED PRN PRN Reason: Keep Vein Open Last Admin: 12/12/20 16:26 Dose: 10 ml Documented by: Sodium Chloride (Sodium Chloride 0.9% 2.5 Ml Syringe) 2.5 ml FLUSH ASDIRECTED PRN PRN Reason: Keep Vein Open Last Admin: 12/12/20 16:26 Dose: 2.5 ml Documented by: Warfarin Sodium (Warfarin 2 Mg Tab) 3 mg PO SuMoTuWeThSa@1400 [facility] Last Admin: 12/14/20 14:04 Dose: 3 mg Documented by: Warfarin Sodium (Warfarin 2.5 Mg Tab) 2.5 mg PO Fr@1400 [facility] Last Admin: 12/13/20 13:51 Dose: 2.5 mg Documented by: Warfarin Sodium (Warfarin 2 Mg Tab) 2 mg PO Fr@1400 [facility] Last Admin: 12/13/20 13:52 Dose: 2 mg Documented by: Discontinued Medications Ceftriaxone Sodium/Dextrose 1 (gm/ Premix) 50 mls @ 100 mls/hr IV ONETIME ONE Stop: 12/12/20 15:58 Last Admin: 12/12/20 15:40 Dose: 100 mls/hr Documented by: Magnesium Sulfate 4 gm/ Premix 100 mls @ 50 mls/hr IV ONETIME ONE Stop: 12/12/20 21:15 Last Admin: 12/12/20 20:35 Dose: 50 mls/hr Documented by: Morphine Sulfate (Morphine 4 Mg/Ml Syringe) 4 mg IVPUSH ONETIME ONE Stop: 12/12/20 15:31 Last Admin: 12/12/20 15:39 Dose: 4 mg Documented by: Morphine Sulfate (Morphine 2 Mg/Ml Syringe) 2 mg IVPUSH Q4H PRN PRN Reason: Pain Last Admin: 12/13/20 09:29 Dose: 2 mg Documented by: - Exam General: Reports: Alert, Oriented Lungs: Reports: Clear to Auscultation, Normal Respiratory Effort Cardiovascular: Reports: Regular Rate, Regular Rhythm GI/Abdominal Exam: Soft, Non-Tender
== END 2020-12-14 15:45 | disposition home health service (06) ==
LOC: MW.ED 13:54 → MW.MS 16:53
PROVIDERS: ADMIT Student in an Organized Health Care Education/Training Program; ATTEND Student in an Organized Health Care Education/Training Program
DX: E86.0 Dehydration (principal); R42 Dizziness and giddiness; I48.91 Unspecified atrial fibrillation; S22.089A Unspecified fracture of T11-T12 vertebra, initial encounter for closed fracture; N39.0 Urinary tract infection, site not specified; E83.42 Hypomagnesemia; D72.829 Elevated white blood cell count, unspecified; R26.2 Difficulty in walking, not elsewhere classified; E11.9 Type 2 diabetes mellitus without complications; I10 Essential (primary) hypertension; M19.90 Unspecified osteoarthritis, unspecified site; Z79.01 Long term (current) use of anticoagulants; Z79.899 Other long term (current) drug therapy; Z79.4 Long term (current) use of insulin; I27.20 Pulmonary hypertension, unspecified; Z88.8 Allergy status to other drugs, medicaments and biological substances; Z20.822 Contact with and (suspected) exposure to COVID-19; W19.XXXA Unspecified fall, initial encounter
CPT/HCPCS: 36415; 70450; 70486; 71045; 72125; 73030; 74176; 80048; 80053; 80162; 81001; 82306; 82550; 82947; 83036; 83605; 83690; 83735; 83880; 84484; 85025; 85610; 87040; 87086; 87088; 87186; 93005; 97161; A9270; J0696; J1815; J2270; J3475; J7120; U0002